=== PATIENT | male | born 1985 | race Caucasian/White ===

== ENCOUNTER 2023-10-02 10:47 | Emergency (ER) | payer OTHER, SELFPAY ==
--- NOTE | ~2023-10-02 | CT_ITS ---
EXAMINATION: CT abdomen pelvis w con DATE: 10/02/2023 12:24 INDICATION: Urinary retention, rectal pain, hemorrhoids. History of hemorrhoidectomy 2 years ago. TECHNIQUE: Computed tomography (CT) of the abdomen and pelvis was performed with 100 CC Omnipaque 350 intravenous contrast. Automated exposure control and iterative reconstruction technique were employe d. Exam dose: 900.30 mGy-cm total exam DLP. COMPARISON: None. FINDINGS: The lung bases are clear. Normal heart size. No pericardial or pleural effusion. The liver, gallbladder, bile ducts, pancreas, pancreatic duct, spleen, and adrenal glands and kidneys are unremarkable. No urinary tract calculus or hydroureteronephrosis. The urinary bladder, prostate gland and seminal vesicles are unremarkable. No bowel obstruction, bowel wall thickening, pneumatosis or intraperitoneal free air. Normal appendix . Normal caliber of the abdominal aorta. No intraperitoneal or retroperitoneal or pelvic mass lesion or adenopathy or ascites. L4 limbus vertebra. Schmorl's nodes and mild anterior wedging of L1, L2 and L3. Small Schmorl's node of L5. No suspicious osteolytic or osteoblastic lesions. IMPRESSION: No significant abnormality of the abdomen or pelvis is noted Reviewed, dictated and finalized at [facility]. Reviewed, dictated and finalized at [facility]. [employer]
[2023-10-02 10:54] VITALS: BP 140/85; PULSE 92; RESP 18; TEMP 36.3; O2SAT 100
[2023-10-02 11:18] VITALS: RESP 18; O2SAT 99
--- NOTE | 2023-10-02 11:40 | ED.GENADULT ---
[facility] - General Adult General Chief complaint: Unspecified Stated complaint: hemorrhoid pain Time Seen by Provider: 10/02/23 10:55 Source: patient Mode of arrival: ambulatory Limitations: no limitations History of Present Illness [facility] narrative: This is a 38-year-old male who presents to the ED with chief complaint of rectal pain ongoing for several months and worse the last couple of days. Reports that he had recent GI bug and was having diarrhea. He seems to think this has exacerbated his pain with known hemorrhoids. He feels that the pain is more internal. States that Sitz baths helped a lot but any time he is not using Sitz bath he is in severe pain. He has tried rectal lidocaine and hydrocortisone with no relief. States he has to be seen by [facility] this [facility] for a repeat B[facility] injection. Patient reports that with this increasing pain he has not had a bowel movement in 2 days. Reports that he has not been able to urinate and has been self cathing withhold catheter at home to urinate. Denies fevers, chills, nausea, vomiting, hematuria, dysuria. Related Data Allergies Allergy/AdvReac Type Severity Reaction Status Date / Time No Known Allergies Allergy Verified 10/02/23 11:24 Review of Systems Review of Systems: All systems as dictated in [facility] Family History Family History (Updated 03/18/17 @ 14:28 by DOCTOR UNKNOWN) Grandparent Diabetes mellitus Sibling Family history of gastrointestinal disorder Social History Social History Smoking status: Heavy tobacco smoker Alcohol intake: current Exam Narrative: GENERAL: Well-appearing, well-nourished, and in no acute distress. HEAD: Normocephalic, atraumatic. EYES: PERRLA and EOMI. ENT: Nares clear, no rhinorrhea or epistaxis. Mucous membranes moist. Oropharynx without tonsillar hypertrophy exudate or other lesions. NECK: Supple. No adenopathy or masses. CHEST: No respiratory distress. Clear to auscultation. No wheezes rales or rhonchi HEART: Regular rate and rhythm. No murmur heard. Normal peripheral pulses. ABDOMEN: Soft, nontender, nondistended, normal active bowel sounds. MSK: Normal range of motion. No edema. SKIN: Warm, dry, no rash. NEURO: Alert and oriented x3. No focal deficits. PSYCH: Normal mood and affect. 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 No thrombosis. Unable to visualize any obvious anal fissure Course Vital Signs Vital signs: Vital Signs Temperature 97.3 F L 10/02/23 10:54 Pulse Rate 92 10/02/23 10:54 Respiratory Rate 18 10/02/23 10:54 Blood Pressure 140/85 10/02/23 10:54 Pulse Oximetry 100 10/02/23 10:54 Temperature 97.8 F 10/02/23 14:33 Pulse Rate 89 10/02/23 14:33 Respiratory Rate 17 10/02/23 14:33 Blood Pressure 137/77 10/02/23 14:33 Pulse Oximetry 100 10/02/23 14:33 Medical Decision Making MDM Narrative Medical decision making narrative: This is a 38-year-old male who presents to the ED with chief complaint of hemorrhoid pain for the past several days. Recent GI illness that seemed to have worsened his chronic hemorrhoids. Vitals are normal. Exam is overall benign. He is resting comfortably. There is some vascular congestion and external hemorrhoid noted on exam but no evidence of thrombosed hemorrhoid. He has secondary complaints of constipation and urinary retention due to pain. Lab work shows mildly elevated white count 0.4 and overall CMP. Urinalysis was gained via straight cath as patient was not able to give a urine sample. UA shows CT abdomen pelvis with IV contrast shows no significant abnormality of the abdomen or pelvis. Examined the patient with attending, Dr. Jose. Shared decision making with the patient to place Jones catheter today and have him follow up with surgery. Patient will be given prescription for Anusol. Lengthy discussion regardin
[2023-10-02] MEDS: ONDANSETRON INJ 4 MG/2 ML VIAL IV PUSH (11:43)
[2023-10-02] MEDS: HYDROmorphone HCL INJ (*CRX) 1 MG/ML SYR 0.5 MG IV PUSH (11:43)
[2023-10-02] MEDS: SODIUM CHLORIDE 0.9% IV 1,000 ML 999 ML IV CONT (11:46)
[2023-10-02 11:53] LABS: Basophils Percent Auto 0.2 % (0.2-1.2); Eosinophils Percent Auto 0.4 % (0-4.4); Hematocrit 45.1 % (42.0-52.0); Hemoglobin 15.3 g/dL (14.0-18.0); Immature Granulocyte Absolute 0.03 K/mm3 (0.00-0.031); Immature Granulocyte Percent A 0.3 % (0-0.5); Lymphocytes Absolute Auto 1.31 K/mm3 (0.9-3.2); Lymphocytes Percent Auto 11.5 % (18.3-44.2); Mean Corpuscular HGB Conc 33.9 g/dl (32-36); Mean Corpuscular Hemoglobin 32.5 pg (26-34); Mean Corpuscular Volume 95.8 fl (80-100); Mean Platelet Volume 10.7 fl (7.4-10.4); Monocytes Percent Auto 8.7 % (2.6-8.5); Neutrophils Percent Auto 78.9 % (45.5-73.1); Platelet Count Result 179 k/mm3 (150-375); Red Blood Count 4.71 M/mm3 (4.6-6.20); Red Cell Distribution Width 12.4 % (11.5-14.5); White Blood Count 11.4 K/mm3 (4.5-10.0)
[2023-10-02 12:07] LABS: Alanine Aminotransferase 18 U/L (6-50); Alkaline Phosphatase 80 U/L (38-126); Anion Gap 2 mmol/L (8-16); Aspartate Amino Transferase 16 U/L (17-59); Bilirubin,Total 0.9 mg/dL (0.2-1.3); Blood Urea Nitrogen 18 mg/dL (9-20); Carbon Dioxide 28 mmol/L (22-30); Chloride 106 mmol/L (98-107); Estimated CRCL calculation 125 ml/min; Estimated Glomerular Filt Rate > 60; Glucose 96 mg/dL (65-110); Potassium 4.1 mmol/L (3.4-5.0); Sodium 136 mmol/L (137-145)
--- NOTE | 2023-10-02 12:15 | PC.NURSE ---
pt to CT scan at this time.
[2023-10-02 13:05] LABS: Appearance Urine Clear (Clear); Bacteria Urine None Seen /hpf; Bilirubin Urine Negative (Negative); Blood Urine 1+ (Negative); Color Urine Yellow (Yellow); Glucose Urine UA Trace mg/dL (Negative); Ketones Urine Trace mg/dL (Negative); Leukocyte Esterase Ur Trace LEU/UL (Negative); Nitrate Urine Negative (Negative); Non Pathogenic Casts 0-2; Protein Urine Trace mg/dL (Negative); Squamous Epithelial Cell Urine None seen /hpf (Few)
[2023-10-02 13:22] LABS: Specific Grav Ur 1.071 (1.001-1.035)
[2023-10-02 13:24] LABS: Add Urine Microscopic? YES
--- NOTE | 2023-10-02 13:56 | PC.NURSE ---
after placing linares catheter pt reports excruciating pain and is requesting or catheter to be removed. catheter is draining urine appropriately and balloon was inflated without difficulty. ZIA Drummond made aware.
--- NOTE | 2023-10-02 14:00 | PC.NURSE ---
Family approached nurses station and states pt is in a lot of pain and is requesting for linares catheter to be removed. balloon deflated and catheter removed without difficulty.
--- NOTE | 2023-10-02 14:05 | PC.NURSE ---
ZIA Drummond in room speaking with pt and family at this time.
[2023-10-02] MEDS: KETOROLAC 30 MG/ML VIAL (*BKC) IV PUSH (14:20)
[2023-10-02 14:33] VITALS: BP 137/77; PULSE 89; RESP 17; TEMP 36.6; O2SAT 100
--- NOTE | 2023-10-02 14:39 | PC.NURSE ---
pt was educated on importance of having the Jones Catheter placed, but pt is still refusing. pt advised to return if he changes his mind or has any worsening symptoms. pt to follow up w/ his pcp/general surgery. pt verbalized understanding.gave pt physician directory for doctors to follow up with.
== END 2023-10-02 14:42 | disposition home or self-care (01) ==
PROVIDERS: Emergency Provider Physician Assistant
DX: K62.89 Other specified diseases of anus and rectum (principal); F17.200 Nicotine dependence, unspecified, uncomplicated
CPT/HCPCS: 36415; 51702; 74177; 80053; 81001; 85025; 87086; 96361; 96374; 96375; 99284; J1170; J1885; J2405; J7030; Q9967

== ENCOUNTER 2025-01-27 14:10 | Emergency (ER) | payer OTHER, SELFPAY ==
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
--- NOTE | ~2025-01-27 | XR_ITS ---
EXAM: XR shoulder LT min 2V DATE: 01/27/2025 15:58 HISTORY: pain . COMPARISON: None available. FINDINGS: Normal mineralization. No fracture or dislocation. No lytic or blastic lesion. Degenerativ e change at the AC joint. No erosion or periosteal change. Beaver-shaped hypodensity projecting sup erior to the medial clavicle. IMPRESSION: No acute osseous finding in the left shoulder. Beaver-shaped hyperdensity noted mediall y, of doubtful clinical significance, may represent external artifact. Reviewed, dictated and finalized at location K. IMPRESSION: No acute osseous finding in the left shoulder. Beaver-shaped hype rdensity noted medially, of doubtful clinical significance, may represent exter nal artifact.
--- NOTE | ~2025-01-27 | XR_ITS ---
EXAM: XR hand LT min 3V DATE: 01/27/2025 15:57 HISTORY: pain . COMPARISON: 01/27/2025 x-ray wrist. FINDINGS: Normal mineralization. No fracture or dislocation. No lytic or blastic lesion. Joint space s are maintained. No erosion or periosteal change. Soft tissues within normal limits. IMPRESSION: No acute osseous finding in the left hand. Reviewed, dictated and finalized at location K.
--- OUTSIDE RECORDS SUMMARY | 2025-01-27 14:12 | XMS_ITS | Clinical Summary ---
Author Organization [facility] [employer] Address [address] [place] [address] Care Team Providers Care Youth Support Worker Name Role Phone Unavailable Primary Care Provider Unavailabl e Source Comments [facility],non-owned Affiliates and Associated Physician Practices is amultiple site organization consisting of ambulatory clinics and hospital sitesin [place], [place], [place]. This disclosure is being madepursuant to the Care Everywhere program and may not contain all information available regarding this patient. Last updated 18.[facility] [employer] Allergies No known active allergies Medications * Be aware that medications may not be up to date on this document. Alwaysverify current medications with the patient. ibuprofen (MOTRIN) 200 MG tablet Take 200 mg by mouth every 6 hours as needed for Pain. 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 Gender Identity Not on file Sexual Orientation Not on file Last Filed Vital Signs Vital Sign Reading Time Taken Comments Blood Pressure 140/86 11/21/2009 11:45 AM CDT Pulse 59 11/21/2009 11:45 AM CDT Temperature 36.9 C (98.4 F) 11/21/2009 11:45 AM CDT Respiratory Rate 18 11/21/2009 11:45 AM CDT Oxygen Saturation 100% 11/21/2009 11:45 AM CDT Inhaled Oxygen Concentration - - Weight 96.6 kg (213 lb) 11/21/2009 6:40 AM CDT Height 188 cm (6' 2) 11/21/2009 6:40 AM CDT Body Mass Index 27.35 11/21/2009 6:40 AM CDT Plan of Treatment Health Maintenance Due Date Last Done Comments LIPID TESTING 1983 HIV SCREENING 1998 HEPATITIS C SCREENING 08/27/2001 DTAP/TDAP/TD VACCINES (1 - Tdap) 2002 HEPATITIS B VACCINE (1 of 3 - 19+ 3-dose series) 2002 COVID-19 VACCINE ( - 2023-2 5 season) 2024 DEPRESSION SCREENING 07/26/2024 INFLUENZA VACCINE (Season Ended) 2025 ZOSTER VACCINE (1 of 2) 2033 HIB VACCINE Aged Out No longer eligi ble based on patient's age to complete this topic HPV VACCINE Aged Out No longer eligi ble based on patient's age to complete this topic MENINGOCOCCAL (Group B) VACC INE SHARED DECISION-MAKING Aged Out No longer eligibl e based on patient's age to complete this topic MENINGOCOCCAL GROUPS A/C/Y/W VACCINE Aged Out No longer eligible b ased on patient's age to complete this topic PNEUMOCOCCAL VACCINE Aged Out No long er eligible based on patient's age to complete this topic
[2025-01-27 14:16] VITALS: BP 160/76; PULSE 74; RESP 18; TEMP 36.5; O2SAT 99
--- OUTSIDE RECORDS SUMMARY | 2025-01-27 15:26 | XMS_ITS | Clinical Summary ---
Author Organization [facility] [employer] Address [address] [place] [address] Care Team Providers Care Environmental Emergencies Assistant Name Role Phone Unavailable Primary Care Provider Unavailabl e Source Comments [facility],non-owned Affiliates and Associated Physician Practices is amultiple site organization consisting of ambulatory clinics and hospital sitesin [place], [place], [place] and [place]. This disclosure is being madepursuant to the Care Everywhere program and may not contain all information available regarding this patient. 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
--- OUTSIDE RECORDS SUMMARY | 2025-01-27 15:27 | XMS_ITS | Encounter Summary ---
Author Name [facility] [facility] [place] Address [address], [place] [address] Care Team Providers Care Weed Thinner Name Role Phone SHARMIN ROSEN Primary Care Provider Unavailab le Insurance Providers: All historical and current Section Date Range: From patient's date of to the date document was created. This section includes the names of all active insurance providers for the patient. Insurance Provider Type of Coverage Plan Name Start of Policy Coverage End of Policy Coverage Group Number Member ID Insurance Provider's Telephone Number Policy Fields's Name Patient's Relationship to Policy Fields [employer] PRESCRIPT ION UHEAL TH Dec 25, 2019 [facility] [id number] RA ANGELA ESQUIVEL PATIENT [facility] HEALTH MENTAL HEALTH REPUB LIC SERVI KATI Aug 26, 2019 [id number] [phone] RA ANGELA ESQUIVEL PATIENT [facility] PREFERRED PROVIDER ORGANIZAT ION (PPO) REPUB LIC [employer] Aug 26, 2019 [id number] RA ANGELA ESQUIVEL PATIENT Selected Encounter This section includes the information on record at [place] for the Encounter. Date/Time Encounter Type Encounter Description Reason Provider Source Jul 31, 2024 03:00 PM OFFICE O/P EST MOD 30 MIN PRIMARY CARE/MEDICINE ICD-10-CM G62.9 Polyneuropathy, unspecified JESSIKA,ELKE E IHE Encounter Template Text not used by [place] Assessments - Encounter Diagnoses This section includes the primary and secondary diagnoses documented for the Encounter. Date/Time Primary/Secondary Diagnosis Diagnosis Name Provider Source Jul 31, 2024 04:01 PM PRIMARY Polyneuropathy, unspecified DEPAULO,SHARMIN [facility] Jul 31, 2024 04:01 PM SECONDARY Carpal tunnel syndrome, bilateral upper limbs [facility]ULO,[facility] Jul 31, 2024 04:01 PM SECONDARY Cellulitis of left external ear DEPAULO,[facility] Jul 31, 2024 04:01 PM SECONDARY Depression, unspecified JOAQUINLO,SHARMIN [facility] Jul 31, 2024 04:01 PM SECONDARY Lateral epicondylitis, left elbow DEPAULO,[facility] Jul 31, 2024 04:01 PM SECONDARY Post-traumatic stress disorder, unspecified JESSIKA,[facility] Plan of Treatment: Future Appointments (+ 6 months) and Future Tests (+/- 45 days) The Plan of Treatment section includes future care activities for the patient from [facility] [place] [facility] This section includes future appointments and future orders which are active, pending or scheduled. Future Appointments This section includes appointments that were scheduled to occur 6 months from the date of the Encounter, up to a maximum of 20 appointments. The data comes from all [place] treatment facilities. Appointment Date/Time Appointment Type Appointme nt Facility Name Aug 22, 2024 08:15 AM AMBULATORY - MEDICINE [facility] Aug 23, 2024 01:30 PM AMBULATORY - SURGERY [facility] Aug 31, 2024 02:00 PM AMBULATORY - MEDICINE [facility] Sep 26, 2024 03:00 PM AMBULATORY - MEDICINE [facility] Oct 09, 2024 09:00 AM AMBULATORY - MEDICINE [facility] Oct 16, 2024 03:30 PM AMBULATORY - NONE [facility] Nov 15, 2024 02:00 PM AMBULATORY - SURGERY [facility] Jan 09, 2025 08:30 AM AMBULATORY - NONE [facility] Social History: Smoking Status (Most current) and Tobacco Use (All prior to encounter date) This section includes the most current, and the historical, smoking and tobacco- related health factors from the [place] facility where the Encounter took place. Current Smoking Status This section includes the most current smoking, or tobacco-related health factor, from the [place] facility where the Encounter took place. Date/Time Current Smoking Status Comment Rosie ity Jul 31, 2024 03:00 PM VA-TOBACCO USE FOR TIANA CIGARETTES [facility] Tobacco Use History This section includes a history of the smoking, or tobacco-related health factors, that were collected on or before the date of the Encounter. The data comes from the [place] facility where the Encounter took place. Date/Time Smoking Status/Tobacco Use Comment F acility Jul 31, 2024 03:00 PM VA-TOBACCO USE ADVICE [facility] Jul 31, 2024 03:00 PM VA-TOBACCO USE COSMETICS COUNTER MANAGER NO [facility] Jul 31, 2024 03:00 PM VA-TOBACCO USE EVERY DAY ENDS [facility] Jul 31, 2024 03:00 PM VA-TOBACCO USE MARIANNE RY DAY OTHER TYPE [facility] Jul 31, 2024 03:00 PM VA-TOBACCO USE FOR TIANA CIGARETTES [facility] Jul 31, 2024 03:00 PM VA-TOBACCO USE MED NO [facility] Apr 14, 2018 08:24 AM VA-TOBACCO DOESNT USE WI 30 MIN WAKEUP [facility] Apr 14, 2018 08:24 AM VA-TOBACCO USE > 1 5 LESS THAN 30 YEARS [facility] Apr 14, 2018 08:24 AM VA-TOBACCO USE ADVICE [facility] Apr 14, 2018 08:24 AM VA-TOBACCO USE COSMETICS COUNTER MANAGER NO [facility] Apr 14, 2018 08:24 AM VA-TOBACCO USE MED NO [facility] Apr 14, 2018 08:24 AM VA-TOBACCO USER EVERY DAY [facility] Pathology Reports: +/- 30 days of the encounter Pathology Reports For cases when an order for pathology services may have been completed prior to the date of the Encounter, the report list includes the Pathology Reports that were completed up to 30 days before dateof the Encounter. For cases when an order for pathology services may have been completed after the date of the Encounter, the report list also includes the Pathology Reports that were completed up to30 days after date of the Encounter. The data comes from all [place] treatment facilities. Date/Time Pathology Report Provider Source Aug 25, 2024 10:48 AM LR SURGICAL PATHOL OGY REPORT: LOCAL TITLE: LR SURGICAL PATHOLOGY REPORT STANDARD TITLE: PATHOLOGY PROCEDURE NOTE DATE OF NOTE: AUG 25, 2024@10:48:45 ENTRY DATE: AUG 25, 2024@10:48:45 AUTHOR: DANGELO CODY EXP COSIGNER: URGENCY: STATUS: COMPLETED $APHDR - - - - - - - - - - - - - - - - - - - - - - - - - - - - - - - - - - - - - - - - MEDICAL RECORD SURGICAL PATHOLOGY - - - - - - - - - - - - - - - - - - - - - - - - - - - - - - - - - - - - - - - - PATHOLOGY REPORT Accession No. SP [id number] - - - - - - - - - - - - - - - - - - - - - - - - - - - - - - - - - - - - - - - - $TEXT Submitted by: MANNIE FIELDS Date obtained: Aug 22, 2024 - - - - - - - - - - - - - - - - - - - - - - - - - - - - - - - - - - - - - - - - Specimen (Received Aug 22, 2024 10:45): A. distal esophagus biopsies B. mid esophagus biopsies C. rectal biopsies D. terminal ileum biopsies - - - - - - - - - - - - - - - - - - - - - - - - - - - - - - - - - - - - - - - - BRIEF CLINICAL HISTORY: 38-year-old male with a history of perianal abscess after hemorrhoidectomy rule out IBD and dysphagia eval for EoE. - - - - - - - - - - - - - - - - - - - - - - - - - - - - - - - - - - - - - - - - PREOPERATIVE DIAGNOSIS: Same as above - - - - - - - - - - - - - - - - - - - - - - - - - - - - - - - - - - - - - - - - OPERATIVE FINDINGS: Esophageal mucosal findings suggestive of EoE, rectal inflammation - - - - - - - - - - - - - - - - - - - - - - - - - - - - - - - - - - - - - - - - POSTOPERATIVE DIAGNOSIS: Same as above Surgeon/physician: ANTONELLA FLETCHER MD =-=-=-=-=-=-=-=-=-=-=-=-=-=-=-= -=-=-=-=-=-=-=-=-=-=-=-=-=-=-=- =-=-=-=-=-=-=-=-= - - - - - - - - - - - - - - - - - - - - - - - - - - - - - - - - - - - - - - - - PATHOLOGY REPORT Accession No. SP [id number] - - - - - - - - - - - - - - - - - - - - - - - - - - - - - - - - - - - - - - - - GROSS DESCRIPTION: Sangeetha Naidu, 08/22/24 The specimen is received in formalin in four containers, each labeled with the patient's full name and SSN. A. Labeled as Distal Esophagus Biopsies are multiple webster tissue fragments measuring 0.5 x 0.5 x 0.1cm in aggregate, which are submitted in toto in A1. B. Labeled as Mid Esophagus Biopsies are multiple webster tissue fragments measuring 0.4 x 0.4 x 0.1cm in aggregate, which are submitted in toto in B1. C. Labeled as Rectal Biopsies are three red-webster tissue fragments measuring from 0.3cm to 0.4cm, in greatest dimension and 0.6 x 0.5 x 0.2cm in aggregate, which are submitted in toto in C1. D. Labeled as Terminal Ileum Biopsies are three red-webster tissue fragments measuring from 0.5cm to 0.6cm, in greatest dimension and 0.7 x 0.6 x 0.2cm in aggregate, which are submitted in toto in D1. MICROSCOPIC EXAM: Comment: Sections from the distal and mid esophageal biopsies show squamous epithelium with patchy increase of intraepithelial lymphocytes and eosinophils (15/HPF at hotspots). Features of basal cell hyperplasia, elongation of vascular papillae and spongiosis are also present. Detached squamous cells and keratin debris with fungal organisms highlighted by GMS stain on the mid esophageal biopsy and bacterial colonies are also present. These findings are etiologically nonspecific and can be seen in the setting of GERD and/or EOE, among others. Correlation with the clinical information is necessary. Sections from the rectal biopsy show colonic mucosa with significant lymphoid aggregates and moderately increased lamina propria chronic inflammation. There is no cryptitis or crypt abscess seen. Mucosal architecture is relatively preserved. Dysplasia is not seen. Sections from terminal ileum show small intestinal mucosa with significant lymphoid aggregates and hyperplasia. Mucosal architecture is relatively preserved. Dysplasia is not seen. DIAGNOSIS: ESOPHAGUS, DISTAL, BIOPSY (A): -- SQUAMOUS EPITHELIUM WITH INCREASED INTRAEPITHELIAL LYMPHOCYTES AND EOSINOPHILS (15/HPF) -- SEE COMMENT ESOPHAGUS, MID, BIOPSY (B): -- SQUAMOUS EPITHELIUM WITH INCREASED INTRAEPITHELIAL LYMPHOCYTES AND EOSINOPHILS (15/HPF) -- FUNGAL ORGANISMS PRESENT -- SEE COMMENT LARGE INTESTINE, RECTUM, BIOPSY (C): -- COLONIC MUCOSA WITH INCREASED LAMINA PROPRIA CHRONIC INFLAMMATION AND LYMPHOID AGGREGATES (SEE COMMENT) SMALL INTESTINE, TERMINAL ILEUM, BIOPSY (D): -- SMALL INTESTINAL MUCOSA WITH SIGNIFICANT LYMPHOID AGGREGATES AND HYPERPLASIA (SEE COMMENT) /es/ DANGELO CODY MD, PhD STAFF PATHOLOGIST Signed Aug 25, 2024@10:48 Performing Laboratory: Surgical Pathology Report Performed By: [address]# [id number] [address] [place] [phone] $FTR - - - - - - - - - - - - - - - - - - - - - - - - - - - - - - - - - - - - - - - - (End of report) DANGELO CODY MD ph Date Aug 25, 2024 - - - - - - - - - - - - - - - - - - - - - - - - - - - - - - - - - - - - - - - - MARY ESQUIVEL STANDARD FORM 515 ID:[id number] SEX:M :1985 AGE: 38 LOC:[facility]-GI/ENDO LAB ANESTHESIA2 PCP: Sharmin Rosen /elvis/ DANGELO CODY MD, PhD STAFF PATHOLOGIST Signed: 08/25/2024 10:[address] [facility] Encounter Notes: All associated encounter notes This section contains the clinical notes associated to the Encounter. Date/Time Encounter Note(s) Provider Source Jul 31, 2024 03:04 PM TELEHEALTH NOTE: LOCAL TITLE: PRIMARY CARE VIDEO CONNECT [facility] STANDARD TITLE: TELEHEALTH NOTE DATE OF NOTE: JUL 31, 2024@15:04 ENTRY DATE: JUL 31, 2024@15:04:38 AUTHOR: SHARMIN ROSEN EXP COSIGNER: URGENCY: STATUS: COMPLETED ESTABLISHED PATIENT VIDEO: REASON FOR VISIT/CHIEF COMPLAINT: 38yo male with f/u visit, VVC done in lieu of F2f due to weather. HPI: Patient reports issues with numbness of both arms, mainly when he is sleeping. He notes numbness from the shoulders down to his hands and reports all fingers seem to be affected. He has had a hx of bilateral CTS and right sided ulnar neuropathy. --he is s/p right CT and ulnar nerve decompression in 2019 and for awhile he had no issues. Then started having issues again w/in the past year. --he has been using wrist braces but they are no longer working well for him and seem to make it worse. --he has noticed issues with activity as well, with hands going numb and feeling like he will drop things. --both sides affected equally at this time. --has previously used gabapentin but does feel that it was helping much. Also reports pain in the lateral left elbow, worse in the last couple months. Reports pain and swelling around the lateral epicondyle. Having trouble lifting things, extending the arm, using tools, etc. --he is RHD but uses both arms for work. --no recent OT. He also has a hx of depression and PTSD, currently on sertraline 50mg daily. He reports feeling like he is having more issues with depression and anxiety. reports he is seeming more irritable as well. He does note issues with anhedonia. --previously on buprupion but that seemed to make things worse. WHAT IS YOUR GOAL FOR TODAY? 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 MEDICATIONS: Active and Recently Outpatient Medications (excluding Supplies): Active Outpatient Medications Status 1) MAGNESIUM CITRATE LIQUID TAKE ONE-HALF BOTTLE BY MOUTH ONCE ACTIVE A DAY NEEDED IF NO BOWEL MOVEMENTS Indication: FOR BOWEL EMPTYING 2) PSYLLIUM ORAL PWD MIX AND DRINK 1 TABLESPOONFUL BY MOUTH ACTIVE ONCE A DAY MIX IN GLASS OF WATER/JUICE. FLAVOR SUBSTITUTIONS MAY/WILL OCCUR AND SPECIFIC VARIETIES WILL NOT BE PROVIDED. Indication: FOR FIBER SUPPLEMENTATION 3) SERTRALINE HCL 50MG TAB TAKE ONE TABLET BY MOUTH EVERY ACTIVE (S) MORNING Indication: FOR DEPRESSION Active Non-VA Medications Status 1) Non-VA CHOLECALCIF 50MCG (D3-2,000UNIT) TAB 2000UNIT BY ACTIVE MOUTH ONCE A DAY 2) Non-VA FISH OIL 1000MG (500MG DHA/EPA) CAP 1000MG BY MOUTH ACTIVE ONCE A DAY Indication: UNKNOWN 3) Non-VA TESTOSTERONE CYP 200MG/ML 1ML IN OIL 100MG/0.5ML ACTIVE DEEP INTRAMUSCULARLY TWO TIMES PER WEEK Indication: FOR LOW TESTOSTERONE 6 Total Medications MEDICATION RECONCILIATION: I have reviewed the patient's medication list with the patient and/or his/her care-route aide. Handwritten corrections, additions and/or deletions were made to the list. Corrected Outpatient Medication List was provided to the patient/caregiver. VITALS (most recent, as listed in the electronic record): Temperature: 98.4 F [36.9 C] (05/31/2024 13:58) BP: 120/77 (05/31/2024 13:58) Pulse: 77 (05/31/2024 13:58) Resp: 18 (05/31/2024 13:58) PulsOx: 98% (05/31/2024 13:58) Pain: 3 (05/31/2024 13:58) Weight: Measurement DT WEIGHT LB(KG)[BMI] 05/31/2024 13:58 240.2(108.95)[31*] 05/03/2024 14:01 234.8(106.50)[30*] 03/22/2024 14:32 234.4(106.32)[30*] General exam: pt awake alert and oriented. Speech and affect were normal Head: normocephalic. Eyes: nl eye movement Nose: wnl to limited exam Pt was not SOB, did not appear in acute pain or distress. Pscyh: nl affect. DATA REVIEW: HGA1C 5.6 % 09/29/2023 12:45 HGA1C 5.6 % 08/14/2022 14:22 HGA1C 5.8 % 03/21/2020 11:08 Lipid Panel: TRIGLYCERIDE 435 H mg/dL 09/29/2023 12:45 CHOLESTEROL 223 H mg/dL 09/29/2023 12:45 HDL(New) 32 L mg/dL 09/29/2023 12:45 DIRECT LDL 120 mg/dL 09/29/2023 12:45 CALCULATED LDL comment mg/dL 09/29/2023 12:45 CMP: SODIUM 140 mEq/L 01/07/2024 20:00 POTASSIUM 3.5 mEq/L 01/07/2024 20:00 CHLORIDE 104 mEq/L 01/07/2024 20:00 UREA NITROGEN 10.1 mg/dL 01/07/2024 20:00 CREATININE 0.89 mg/dL 01/07/2024 20:00 CALCIUM 9.3 mg/dL 01/07/2024 20:00 PROTEIN 6.8 g/dL 01/04/2024 23:50 ALBUMIN 4.0 g/dL 01/04/2024 23:50 ALKALINE PHOSPHATASE 67 U/L 01/04/2024 23:50 ALT/SGPT 27 U/L 01/04/2024 23:50 AST/SGOT 14 U/L 01/04/2024 23:50 TOTAL BILIRUBIN 0.6 mg/dL 01/04/2024 23:50 CARBON DIOXIDE 26 mEq/L 01/07/2024 20:00 GLUCOSE 120 H mg/dL 01/07/2024 20:00 EGFR (CKD-EPI 2020) 111.1 01/07/2024 20:00 CBC: WBC 7.7 10*3/uL 01/07/2024 20:00 RBC 4.31 10*6/uL 01/07/2024 20:00 HGB 13.7 g/dL 01/07/2024 20:00 HCT 40.5 % 01/07/2024 20:00 MCV 94.0 fL 01/07/2024 20:00 MCH 31.8 pg 01/07/2024 20:00 MCHC 33.8 g/dL 01/07/2024 20:00 RDW 13.2 % 01/07/2024 20:00 PLT 272 10*3/uL 01/07/2024 20:00 MPV 10.1 fL 01/07/2024 20:00 NEUTROPHILS, AUTO % 67 % 01/07/2024 20:00 LYMPHOCYTES, AUTO % 25 % 01/07/2024 20:00 MONOCYTES, AUTO % 7 % 01/07/2024 20:00 EOSINOPHILS, AUTO % 1 % 01/07/2024 20:00 BASOPHILS, AUTO % 0 % 01/07/2024 20:00 NEUTROPHILS, ABSOLUTE 5.15 10*3/uL 01/07/2024 20:00 LYMPHOCYTES, ABSOLUTE 1.89 10*3/uL 01/07/2024 20:00 MONOCYTES, ABSOLUTE 0.54 10*3/uL 01/07/2024 20:00 EOSINOPHILS, ABSOLUTE 0.05 10*3/uL 01/07/2024 20:00 BASOPHILS, ABSOLUTE 0.02 10*3/uL 01/07/2024 20:00 NEUTROPHILS 81.0 % 10/08/2023 20:00 LYMPHOCYTES 5.2 % 10/08/2023 20:00 MONOCYTES 11.2 % 10/08/2023 20:00 EOSINOPHILS 1.7 % 10/08/2023 20:00 METAMYELOCYTES 0.9 % 10/08/2023 20:00 POIKILOCYTOSIS 1+ 10/08/2023 20:00 No PSA (LAST 10 5Y) EO data found TSH: TSH 1.488 uIU/mL 09/29/2023 12:45 VITAMIN D, 25-HYDROXY 41.0 ng/mL 09/29/2023 12:45 VITAMIN D, 25-HYDROXY 38.8 ng/mL 08/14/2022 14:23 INR: No INR EO data found UA: URINE COLOR Colorless 12/12/2023 09:36 APPEARANCE Clear 12/12/2023 09:36 U.PH 6.0 12/12/2023 09:36 U.BILIRUBIN Negative mg/dL 12/12/2023 09:36 U.NITRITE Negative mg/dL 12/12/2023 09:36 URINE RBC/HPF 2 /HPF 12/12/2023 09:36 URINE WBC/HPF 1 /HPF 12/12/2023 09:36 SQUAMOUS EPITH. <1 /HPF 12/12/2023 09:36 MUCUS RARE /LPF 12/12/2023 09:36 CA OXYLATE CRYSTALS OCC /HPF 10/16/2023 07:30 IM - IMMUNIZATIONS ADMINISTERED Immunization Series Date Facility Reaction Info PNEUMOCOCCAL POLYSACCHARIDE PPV23 03/18/2018 [facility] TDAP 1 03/17/2017 [facility] IIS CONTRAINDICATED No data available REFUSED ======= Immunization Date Facility Info INFLUENZA, UNSPECIFIED FORMULATI* 07/29/2023 [facility] <I> INFLUENZA, UNSPECIFIED FORMULATI* 07/27/2023 [facility] <I> INFLUENZA, UNSPECIFIED FORMULATI* 07/22/2023 No Site <I> INFLUENZA, UNSPECIFIED FORMULATI* 07/22/2022 No Site <I> PNEUMOCOCCAL CONJUGATE, UNSPECIF* 07/27/2023 [facility] <I> SARS-COV-2 (COVID-19) VACCINE,UN* 07/22/2022 No Site <I> TDAP 07/27/2023 [facility] <I> ASSESSMENT/PLAN: 1) Bilateral arm numbness: with hx of bilateral CTS and right sided ulnar neuropathy. --s/p decompression of right ulnar and CT neuropathies. --now affecting arm and entired hands bilaterally, often during sleep but also notes intermittent issues when using tools. --Will get repeat EMG/NCS for further evaluation and consideration of returning to [facility] for further treatment. --Consult to OT. 2) Left elbow pain: sx consistent with lateral epicondylitis. --consult to OT. 3) Depression: reports sx have been worse of late, noting more irritability as well as anhedonia. --currently on sertraline 50mg w/o issue, will increase to 100mg daily and f/u by phone in 4 weeks to monitor treatment. --he declined [facility] referral at this time. 4) Perirectal abcess: seeing [facility], no new issues currently. RTC: 4 week phone visit, 6 month clinic visit SUMMARY STATEMENT: Plan of care has been discussed with including expected therapeutic benefits and potential side effects of prescribed medication and treatments. verbalizes understanding and is in agreement with the plan of care. Patient was instructed to keep all scheduled appointments and contact black oxide operator for any additional problems. PREVENTION & SCREENING: ALCOHOL: Clinical Reminder not due now or within a month COLORECTAL CANCER: Clinical Reminder not due now or within a month BLOOD PRESSURE: Clinical Reminder not due now or within a month HEMOGLOBIN A1C: Clinical Reminder not due now or within a month V15-VA Video Connect/Video to Home: [facility] Video Connect (VVC)/Video to home template v1.5 Visit conducted by synchronous telehealth. [place] Location/emergency number confirmed. Environment surveyed and all participants identified. Virtual conference room locked. VVC/Video to home appointment information: The following items were reviewed: - The nature of telehealth, its benefits, and risks. - Confidentiality and its limits. - The importance of having a confidential location for the service. - The emergency plan. - The appointment should be treated like an in person appointment (no smoking or driving during session, showing up fully dressed, etc.) *The Virtual Medical Room was locked for this encounter. *A survey of the environment was conducted and it is appropriate to conduct a VVC appointment. *Confirmed [place]'s Non-VA location for this appointment: 's Home [address] [place], [place] [address] Address and phone number verified with . Address: Phone: does not have an emergency contact. *[place] was notified of right to decline Telehealth services and eligibility for other options. consented to be seen via VVC. EMERGENCY PLAN In the event of an emergency, the or family will call emergency services, if capable. The Teleprovider will remain in the virtual medical room until emergency response arrives and handoff to emergency services is complete. If is unable to make emergency call, the Teleprovider is to call the national E911 service at [phone] and ask to be connected to emergency services for the 's location. [place]'s Crisis Line: Dial 988 then press 1, or text [phone] Office of Connected Care Helpdesk ([facility]): [phone] or [phone] Verified Provider's location and contact information for this appointment: [facility] [address] [place] [address] x Sexual Orientation - CP,L,N,P,PH,PS,S,U: The patient thinks of their sexual orientation as: Straight or Heterosexual Tobacco Use Screening - AT,DE,L,M,N,P,PH,PS,RT,S,U: The patient is a former cigarette smoker. The patient uses other type(s) of tobacco every day. Other Tobacco Type(s) used: Electronic Nicotine Delivery System (ENDS) (e.g., e-cigarettes/vape pens) Patient was advised to stop smoking and/or using other tobacco products. Advised patient that a combination of behavioral counseling and FDA-approved cessation medications is the most effective way to ensure their success in stopping to smoke and/or using other tobacco products. The patient was not interested in additional information about behavioral counseling and other support strategies discussed. Informed patient that medications can help with cravings and withdrawal symptoms, and they greatly increase the chances of successfully stopping your tobacco use. The patient was not interested in a prescription for tobacco cessation medications. Depression Screening - V: Perform PHQ-2 A PHQ-2 screen was performed. The score was 4 which is a positive screen for depression. Over the past two weeks, how often have you been bothered by the following problems? 1. Little interest or pleasure in doing things More than half the days 2. Feeling down, depressed, or hopeless More than half the days Follow-Up Pos PTSD/Depression - M,P,PH,PS,R,S,T: I have reviewed the results of the Mental Health screens and have evaluated the patient. Based on the evaluation, the following disposition plan will be implemented: Patient to be managed in Primary Care VVC DIGITAL DIVIDE CAPABILITY REMINDER: Patient is interested in V[facility] Health Care appointments. VVC requirements have been communicated to the . The confirms understanding of those requirements and indicates the following VVC needs: [place] has completed previous VVC appointments and confirms they are STILL VVC CAPABLE. Future VVC appointments can be scheduled. 'S RIGHT TO DECLINE STATEMENT [place] understands they have the right to decline the use of [employer] at any time without adverse affects on their continued access to healthcare. /elvis/ SHARMIN ROSEN Staff Physician Signed: 07/31/2024 16:01 SHARMIN ROSEN [facility]
--- OUTSIDE RECORDS SUMMARY | 2025-01-27 15:27 | XMS_ITS | Encounter Summary ---
Author Name [facility] [facility] [place] Address [address], [place] [address] Care Team Providers Care Hand Straightener Name Role Phone MITCHEL ROSEN Primary Care Provider Unavailab le Insurance [...] PRESCRIPT ION UHEAL TH Dec 25, 2019 EAL [id number] [phone] RA ANGELA ESQUIVEL PATIENT [facility] MENTAL HEALTH REPUB LIC SERVI KATI Aug 26, 2019 [id number] [phone] RA ANGELA ESQUIVEL PATIENT [facility] PREFERRED PROVIDER ORGANIZAT ION (PPO) REPUB LIC [employer] Aug 26, 2019 [id number] [phone] RA ANGELA ESQUIVEL PATIENT Selected Encounter This section includes the information on record at [place] for the Encounter. Date/Time Encounter Type Encounter Description Reason Provider Source May 31, 2024 02:00 PM OFFICE O/P EST LOW 20 MIN GENERAL SURGERY ICD-10-CM H60.12 Cellulitis of left external ear COLBY LIANG Elliot Encounter Template Text not used by [place] Assessments - Encounter Diagnoses This section includes the primary and secondary diagnoses documented for the Encounter. Date/Time Primary/Secondary Diagnosis Diagnosis Name Provider Source May 31, 2024 03:13 PM PRIMARY Cellulitis of left external ear MAXWELL MILAN [facility] Plan of Treatment: Future Appointments (+ 6 months) and Future Tests (+/- 45 days) The Plan of Treatment section includes future care activities for the patient from all [place] treatmentfacilities. This section includes future appointments and future orders which are active, pending or scheduled. Future Appointments This section includes appointments that were scheduled to occur 6 months from the date of the Encounter, up to a maximum of 20 appointments. The data comes from all [place] treatment facilities. Appointment Date/Time Appointment Type Appointme nt Facility Name Jul 31, 2024 03:00 PM AMBULATORY - MEDICINE [facility] Aug 22, 2024 08:15 AM AMBULATORY - MEDICINE [facility] Aug 23, 2024 01:30 PM AMBULATORY - SURGERY [facility] Aug 31, 2024 02:00 PM AMBULATORY - MEDICINE [facility] Sep 26, 2024 03:00 PM AMBULATORY - MEDICINE [facility] Oct 09, 2024 09:00 AM AMBULATORY - MEDICINE [facility] Oct 16, 2024 03:30 PM AMBULATORY - NONE [facility] Nov 15, 2024 02:00 PM AMBULATORY - SURGERY [facility] Lab Results: +/- 30 days of the encounter This section includes the Chemistry and Hematology Lab Results on record with [place] for the patient. Radiology Reports and Pathology Reports are provided separately, in subsequent sections. Lab Results This section contains the Chemistry/Hematology Results that were resulted 30 days before or 30 daysafter the date of the Encounter. Date/Time Source Result Type Result - Unit Interpretation Reference Range Specimen Type Comment May 23, 2024 02:17 PM [facility] I-STAT, CREAT (ST[facility]-AK) BLOOD Specimen Type: BLOOD Comment: Test Performed by: [id number] Meter #: [id number] Ordering Provider: DEPAULO,MITCHEL Report Released Date/Time: May 23, 2024 02:43 PM Reporting Lab: [facility] [address] [facility] [id number] Performing Lab: [facility] [address] [facility] [facility] [id number] I-STAT, CREAT (STL-MA) 1.0 mg/dL 0.7-1.3 Vital Signs: All taken on the encounter date This section contains inpatient and outpatient Vital Signs collected on the date of the Encounter. Date/Time Temperature Pulse Blood Pressure Respiratory Rate SP02 Pain Height Weight Body Mass Index Source May 31, 2024 01:58 PM 98.4 77 120/77 18 98 3 74 240.2 31 [facility] Social History: Smoking Status (Most current) and Tobacco Use (All prior to encounter date) This section includes the most current, and the historical, smoking and tobacco- related health factors from the [place] facility where the Encounter took place. Current Smoking Status This section includes the most current smoking, or tobacco-related health factor, from the [place] facility where the Encounter took place. Date/Time Current Smoking Status Comment Facil ity Jul 22, 2023 10:43 AM VA-TOBACCO QUIT 1 TO < 5 YRS [facility] Tobacco Use History This section includes a history of the smoking, or tobacco-related health factors, that were collected on or before the date of the Encounter. The data comes from the [place] facility where the Encounter took place. 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 For cases when an order for radiology services may have been completed after the date of the Encounter, the report list also includes the Radiology Reports that were completed up to30 days after date of the Encounter. The data comes from all [place] treatment facilities. Date/Time Radiology Report Provider Source May 23, 2024 01:[address] PELVIS W/CONT: MARY ESQUIVEL [id number] -[id number] M Exm Date: MAY 23, 2024@13:44 Req Phys: TRAVIS BIRD Loc: [facility] Img Loc: [facility] Service: [address] [address] (Case [id number] COMPLETE) CT PELVIS W/CONT (CT Detailed) CPT:86165 Contrast Media : Non-ionic Iodinated Reason for Study: follow up anal fisutlas Clinical History: Responsible Attending: Dr. 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 CREATININE 0.89 mg/dL (01/07/24 20:00) Wt: 234.8 lb [106.50 kg] (05/03/2024 14:01) History of: Renal failure, chronic or acute renal disease: NO Report Status: Verified Date Reported: MAY 23, 2024 Date Verified: MAY 23, 2024 Casting Machine Operator E-Sig:/ES/Priya Guadalupe MD Report: CASE #: [id number] DATE:05/23/2024 4:08 PM CLINICAL HISTORY:follow up anal fisutlas COMPARISON: 12/12/2023, 12/08/2023, 11/03/2023 PROCEDURES: CT PELVIS W/CONT FINDINGS: Interval placement of left sigmoid colostomy which appears uncomplicated. No bowel obstruction or perforation. No free or loculated fluid in the visualized pelvis. Surgical implant in the left perirectal region again noted with decreased surrounding inflammation and no evidence for an abscess in the left periareolar anal/perirectal aspect of the ischial rectal fossa. Normal appendix. No inflammation the visualized bowel loops. The visualized portions of the ureters and bladder and prostate gland are unremarkable. Impression: Uncomplicated left ventral sigmoid colostomy. Surgical implant in the left perianal/perirectal space again noted. Decreased inflammation in this area without discrete fluid collection identified. Primary Interpreting Staff: Priya Guadalupe MD, Radiologist (Casting Machine Operator) /PRIYA BRIGHT [facility] Encounter Notes: All associated encounter notes This section contains the clinical notes associated to the Encounter. Date/Time Encounter Note(s) Provider Source May 31, 2024 02:04 PM SURGERY NOTE: LOCAL TITLE: GENERAL SURGERY NOTE ST STANDARD TITLE: SURGERY NOTE DATE OF NOTE: MAY 31, 2024@14:04 ENTRY DATE: MAY 31, 2024@14:04:42 AUTHOR: MAXWELL MILAN COSIGNER: COLBY LIANG URGENCY: STATUS: COMPLETED MAY 31, 2024 Colorectal Surgery Clinic Note Brief HPI: MARY ESQUIVEL is a 38-year-old MALE with PMHx JESUS on CPAP, migraines, tobacco use, internal/external hemorrhoids s/p L lateral and R posterolateral excision hemorrhoidectomy (Jul 2021), EUA w/ biopsy and fulguration of small ulcer (Jul 2022), EUA w/ botox injection and cauterization of granulation tissue (01/04/23), and perianal abscess drainage with setons placement in November 2023, s/p lap loop sigmoid colostomy 01/05/2024, for management of recurrent persistent non healing perianal abscesses, presenting for follow up. Patient last seen in clinic 05/03/24, at that time x1 seton removed. He was instructed to obtain repeat MRI but was unable to complete due to metal in chest so had CT scan completed. Today, fahad is overall doing well but continues to complain of draiange from his bottom. He is unsure if it is mucus from his anus for draiange from seton sites. He reports draiange ranges from yellow to white and is occasionally bloody. He states he is able to keep area clean by wearing pads and regularly wiping the area. Occasionally when he wipes he will pull on setons exacerbating pain and causing scant bleeding. He reports stoma output has been stable and he has no trouble changing his ostomy output. He denies fever, chills, nausea, vomiting, appetite change, or change in ostomy out. Patient reports he followed up with GI and is scheduled for EGD and colonoscopy in July. ROS: 14 point review of systems negative except as noted in HPI. Vitals: Temp: 98.4 F [36.9 C] (05/31/2024 13:58) Pulse Ox: Measurement DT POx (L/MIN)(%) 05/31/2024 13:58 98 05/03/2024 14:01 98 03/22/2024 14:32 98 01/20/2024 08:52 96 PULSE: 77 (05/31/2024 13:58) RESPIRATION: 18 (05/31/2024 13:58) BLOOD PRESSURE: 120/77 (05/31/2024 13:58) PHYSICAL EXAM General: in NAD HEENT: NC/AT, EOMI Neuro: no focal deficits CV: RRR Resp: unlabored respirations on room air Abdomen/Pelvis: soft, non-distended, non-tender. Port sites well healed, LUQ stoma appliance in place, no surrounding erythema Perianal: Three remaining setons with improved erythema and induration, scant yellowish discharge at insertion sites, tender to palpation. MSK: extremities x4 WWP, non-edematous Psych: appropriate mood and affect LABS: CHEM 7: SODIUM 140 mEq/L 01/07/2024 20:00 POTASSIUM 3.5 mEq/L 01/07/2024 20:00 CHLORIDE 104 mEq/L 01/07/2024 20:00 UREA NITROGEN 10.1 mg/dL 01/07/2024 20:00 CREATININE 0.89 mg/dL 01/07/2024 20:00 CALCIUM 9.3 mg/dL 01/07/2024 20:00 CARBON DIOXIDE 26 mEq/L 01/07/2024 20:00 GLUCOSE [...] % 10/08/2023 20:00 POIKILOCYTOSIS 1+ 10/08/2023 20:00 ACTIVE INPT MEDS: No medications found. PROCEDURES: CT PELVIS W/CONT 05/23/24 FINDINGS: Interval placement of left sigmoid colostomy which appears uncomplicated. No bowel obstruction or perforation. No free or loculated fluid in the visualized pelvis. Surgical implant in the left perirectal region again noted with decreased surrounding inflammation and no evidence for an abscess in the left periareolar anal/perirectal aspect of the ischial rectal fossa. Normal appendix. No inflammation the visualized bowel loops. The visualized portions of the ureters and bladder and prostate gland are unremarkable. Impression: Uncomplicated left ventral sigmoid colostomy. Surgical implant in the left perianal/perirectal space again noted. Decreased inflammation in this area without discrete fluid collection identified. DIAGNOSIS: Perianal abscesses s/p drainage and seton placement ASSESSMENT/PLAN: 38-year-old MALE with PMHx JESUS on CPAP, migraines, tobacco use, internal/external hemorrhoids s/p L lateral and R posterolateral excision hemorrhoidectomy (Jul 2021), EUA w/ biopsy and fulguration of small ulcer (Jul 2022), EUA w/ botox injection and cauterization of granulation tissue (01/04/23), and perianal abscess drainage with setons placement in November 2023, s/p lap loop sigmoid colostomy 01/05/2024, following up on perianal abscesses and discussion of seton removal. Discussed imaging which showed overall improvement of infection with ivett active fluid collections. Removed x2 setons in clinic with single seton remaining. Patient to follow up with GI for scope on August 22. He will follow up in clinic the following wednesday to discuss scope results and next steps. - x2 setons removed in clinic - Continue to keep area clean and dry as able - Follow up with GI for colonoscopy 08/22/24 - Follow up in clinic the following Wednesday after scope /es/ MAXWELL MILAN MD Signed: 05/31/2024 14:56 /es/ COLBY LAING MD Staff Physician, General Surgery I Cosigned: 05/31/2024 15:13 MAXWELL MILAN [facility]
--- OUTSIDE RECORDS SUMMARY | 2025-01-27 15:27 | XMS_ITS | Encounter Summary ---
Author Name [facility] Organization [facility] Address [address], [place] [address] Care Team Providers Care Shipper Name Role Phone MITCHEL ROSEN Primary Care [...] ION UHEAL TH Dec 25, 2019 EAL [id number] RA ANGELA ESQUIVEL PATIENT [facility] REPUB LIC SERVI KATI Aug 26, 2019 [id number] [phone] RA ANGELA ESQUIVEL PATIENT [facility] PREFERRED PROVIDER ORGANIZAT ION (PPO) REPUB LIC [employer] Aug 26, 2019 [id number] RA ANGELA ESQUIVEL PATIENT Selected Encounter This section includes the information on record at ID for the Encounter. Date/Time Encounter Type Encounter Description Reason Provider Source Jan 09, 2025 05:10 AM OFFICE O/P EST LOW 20 MIN GENERAL SURGERY ICD-10-CM H60.12 Cellulitis of left external ear DAJA CARTER III [facility] Encounter Template Text not used by ID Assessments - Encounter Diagnoses This section includes the primary and secondary diagnoses documented for the Encounter. Date/Time Primary/Secondary Diagnosis Diagnosis Name Provider Source Jan 09, 2025 09:30 AM PRIMARY Cellulitis of left external ear DAJA CARTER III [facility] Plan of Treatment: Future Appointments (+ 6 months) and Future Tests (+/- 45 days) The Plan of Treatment section includes future care activities for the patient [facility] This section includes future appointments and future orders which are active, pending or scheduled. Future Appointments This section includes appointments that were scheduled to occur 6 months from the date of the Encounter, up to a maximum of 20 appointments. The data comes from all ID treatment facilities. Appointment Date/Time Appointment Type Appointme nt Facility Name Feb 05, 2025 02:30 PM [facility] Feb 14, 2025 02:00 PM AMBULATORY - SURGERY [facility] Active, Pending, and Scheduled Orders This section includes a listing of several types of active, pending, and scheduled orders, including clinic medications orders, diagnostic test orders, procedure orders and consult orders; where the start date of the order is 45 days before the date of the Encounter or 45 days after the date of theEncounter. The data comes from all [facility]. Test Date/Time Test Type Test Details Facility Name Jan 09, 2025 12:00 AM Laboratory - Blood Bank Order TYPE & SCREEN - LAB BLOOD SP [facility] Jan 09, 2025 10:41 AM Pharmacy - Clinic Medication Order [facility] Vital Signs: All taken on the encounter date This section contains inpatient and outpatient Vital Signs collected on the date of the Encounter. Date/Time Temperature Pulse Blood Pressure Respiratory Rate SP02 Pain Height Weight Body Mass Index Source Jan 09, 2025 11:00 AM 97.9 F 63 /min 116/59 mm[Hg] 18 /min 99 % 0 [facility] Jan 09, 2025 08:45 AM 97.9 F 63 /min 127/89 mm[Hg] 16 /min 99 % 0 74 in 235 lb 30 [facility] Social History: Smoking Status (Most current) and Tobacco Use (All prior to encounter date) This section includes the most current, and the historical, smoking and tobacco- related health factors from the ID facility where the Encounter took place. Current Smoking Status This section includes the most current smoking, or tobacco-related health factor, from the ID facility where the Encounter took place. Date/Time Current Smoking Status Comment Rosie ity Jul 22, 2023 10:43 AM VA-TOBACCO FORMER USER [facility] Tobacco Use History This section includes a history of the smoking, or tobacco-related health factors, that were collected on or before the date of the Encounter. The data comes from the ID facility where the Encounter took place. 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 Date/Time Encounter Note(s) Provider Source Jan 09, 2025 10:37 AM PHYSICIAN EDUCATION DISCHARGE NOTE: LOCAL TITLE: DISCHARGE INSTRUCTIONS ST STANDARD TITLE: PHYSICIAN EDUCATION DISCHARGE NOTE DATE OF NOTE: JAN 09, 2025@10:37 ENTRY DATE: JAN 09, 2025@10:38:02 AUTHOR: LORA IVY EXP COSIGNER: JOVANNY CARTER III URGENCY: STATUS: COMPLETED JAN 09, 2025 DIAGNOSES: Recurrent perirectal abscess s/p seton placement PROCEDURES: Rectal exam under anesthesia, seton removal 2. FUTURE APPOINTMENT(S): *To reschedule [facility] appointments call and use ext [phone] Please follow up with Vascular/General Surgery in clinic, you will be contacted regarding your appointment. date/time clinic phone number 02/05/25 2:30 pm [facility]- C[facility] PACT 7 PCP [phone] *This listing may be incomplete. Please refer to Appointment Mgmt.listing for any additional patient appointments 3. DISCHARGE MEDICATIONS: Active Outpatient Medications (including Supplies): Active Outpatient Medications Status 1) ADHESIVE REMOVER WIPE H#8545 USE/APPLY DIRECTED TO ACTIVE AFFECTED AREA(S) USE DIRECTED 2) APPLIANCE DEODORANT SPRAY M-9 SMALL AMOUNT TO AFFECTED ACTIVE AREA(S) NEEDED TO OSTOMY POUCH 3) BARRIER,ADAPT CERARING H#8284 USE BARRIER STOMA TWO TIMES ACTIVE PER WEEK (10 BARRIERS = 30 DAY SUPPLY) Indication: FOR OSTOMY CARE 4) BARRIER,OSTOMY,NEW IMAGE H#74429 USE BARRIER STOMA TWO TIMES ACTIVE PER WEEK AND USE BARRIER NEEDED (5 BARRIERS = 30 DAY SUPPLY) USE WITH OSTOMY APPLIANCE CHANGE TWICE WEEKLY. (DUE TO WORK ENVIRONMENT NEEDS TO CHANGE BARRIER MORE FREQUENTLY THAN TWICE WEEKLY ON OCCASION) Indication: FOR OSTOMY CARE 5) IBUPROFEN 600MG TAB TAKE ONE TABLET BY MOUTH FOUR TIMES A ACTIVE DAY NEEDED TAKE WITH FOOD. Indication: FOR PAIN 6) PASTE,STOMAHESIVE C#0209-10 APPLY SPARINGLY STOMA USE ACTIVE DIRECTED 7) POUCH,DRAINABLE,NEW IMAGE H#08795 USE POUCH STOMA TWO TIMES ACTIVE PER WEEK Indication: FOR OSTOMY CARE 8) POWDER,STOMAHESIVE C#0255-10 TAKE/APPLY SMALL AMOUNT TO ACTIVE AFFECTED AREA(S) TWICE WEEKLY 9) SERTRALINE HCL 100MG TAB TAKE ONE TABLET BY MOUTH EVERY ACTIVE MORNING Indication: FOR DEPRESSION 10) SKIN BARRIER FILM 28ML 3M#3346 APPLY 1 SPRAY TO AFFECTED ACTIVE AREA(S) ONCE A DAY NEEDED 11) SKIN PREP,NO STING WIPE USE/APPLY 1 PAD TO AFFECTED AREA(S) ACTIVE USE DIRECTED 12) TAPE,PINK 1.5IN X 5YD USE/APPLY TAPE TO AFFECTED AREA(S) USE ACTIVE DIRECTED Active Non-VA Medications Status 1) Non-VA CHOLECALCIF 50MCG (D3-2,000UNIT) TAB 2000UNIT BY ACTIVE MOUTH ONCE A DAY 2) Non-VA FISH OIL 1000MG (500MG DHA/EPA) CAP 1000MG BY MOUTH ACTIVE ONCE A DAY Indication: UNKNOWN 3) Non-VA TESTOSTERONE CYP 200MG/ML 1ML IN OIL 100MG/0.5ML ACTIVE DEEP INTRAMUSCULARLY TWO TIMES PER WEEK Indication: FOR LOW TESTOSTERONE 15 Total Medications NEW MEDICATIONS (and indicatons): Tylenol as needed for pain The following changes were made to the medications you were taking prior to this hospitalization: None These medications have been stopped during your hospitalization (and reason why): None At your next appointment, please remember to bring all of your medication bottles with you Medication Reconciliation: I have discussed active and pending medications with the patient and/or after school caregiver. I have made changes as appropriate. 4. DISCHARGE INTRUCTIONAL MATERIALS 5. WOUND MANAGEMENT: OK to shower as usual, wash over your incision sites with soap and water. Redress wound daily and when needed. 6. DISCHARGE DIETARY INSTRUCTIONS: Ok to resume previous diet. 7. DISCHARGE PHYSICAL ACTIVITY INSTRUCTIONS: Please do not lift anything more than 10 pounds until follow up. Youre activity will be limited for several weeks, this will be further discussed in clinic. OK to walk and climb stairs. 8. OTHER (Include employment status): If you need FMLA paperwork signed please contact Gin Shipley [phone]. 9. WORSENING and/or DANGEROUS SYMPTOMS TO REPORT If you experience fever, increased pain, spreading redness around your incision sites, nausea, vomiting or purulent drainage from your wounds or shortness of breath please call [phone] or return to the ED. Specialist Information: If you would like to contact unit II surgery, please call Gin Shipley during regular business hours at . Follow-up with your Primary Care Physician or Specialist or call [facility] Helpline: [phone] /elvis/ LROA IVY Resident Physician Signed: 01/09/2025 10:40 /elvis/ Jovanny Carter III, MD [facility] General Surgery Attending Cosigned: 01/10/2025 17:[address] [facility] Jan 09, 2025 10:32 AM OPERATIVE NOTE: LOCAL TITLE: BRIEF OP NOTE STL STANDARD TITLE: OPERATIVE NOTE DATE OF NOTE: JAN 09, 2025@10:32 ENTRY DATE: JAN 09, 2025@10:32:33 AUTHOR: LORA IVY EXP COSIGNER: JOVANNY CARTER III URGENCY: STATUS: COMPLETED Date of Surgery:01/09/25 Surgery Case #:[id number] Pre-Operative Diagnosis:Recurrent perirectal abscess Post-Operative Diagnosis:Same Surgery Performed:Rectal exam underanesthesia, seton removal Attending:Jovanny Carter MD Surgeon:Lora Ivy MD Type of Anesthesia:MAC Specimens:No If yes, Type and number of specimens: Findings: Healthy non-inflamed appearing hemorrhoids. Seton in place without fluctuance or discharge appreciated around or from track. Minimal normal rectal discharge. Complications:None Estimated Blood Loss:None Blood Given? No If yes, how much? Fluid Replacement:See Anesthesia note Status En-Route to PACU? Critical: No Satisfactory: Yes /lino IVY Resident Physician Signed: 01/09/2025 10:37 /elvis/ Jovanny Carter III, MD [facility] General Surgery Attending Cosigned: 01/09/2025 14:52 LORA IVY [facility] Jan 09, 2025 09:30 AM SURGERY ATTENDING NOTE: LOCAL TITLE: ATTENDING SURGEON PREOPERATIVE STL STANDARD TITLE: SURGERY ATTENDING NOTE DATE OF NOTE: JAN 09, 2025@09:30 ENTRY DATE: JAN 09, 2025@09:30:21 AUTHOR: JOVANNY CARTER I EXP COSIGNER: URGENCY: STATUS: COMPLETED Surgical H&P Date of Planned Procedure: Dec Surgical H&P Dated Dec reviewed on Dec Surgical H&P completed within 30 days of planned procedure:Yes Attending Surgeon Preoperative STL completed within 24 hours of procedure? Yes Changes noted to the H&P:NO I have seen and examined the patient and agree with the H&P, assessment and plan. YES Preoperative Findings/Diagnosis: Previous complex fistula in ano treated with setons and then diverting colostomy Plan/Procedure: Rectal exam under anesthesia, possible fistulotomy, possible seton removal /es/ Jovanny Carter III, MD [facility] General Surgery Attending Signed: 01/09/2025 09:31 JOVANNY CARTER III [facility] Jan 09, 2025 05:12 AM SURGERY ATTENDING PRE OPERATIVE E & M NOTE: LOCAL TITLE: GENERAL SURGERY PRE-OP HISTORY AND PHYSICAL STL STANDARD TITLE: SURGERY ATTENDING PRE OPERATIVE E & M NOTE DATE OF NOTE: JAN 09, 2025@05:12 ENTRY DATE: JAN 09, 2025@05:12:45 AUTHOR: LORA IVY EXP COSIGNER: JOVANNY CARTER III URGENCY: STATUS: COMPLETED GENERAL SURGERY II PRE-OPERATIVE HISTORY & PHYSICAL HPI: 39 YEAR OLD MALE with PMH s/f JESUS on CPAP, migraines, tobacco use, internal/external hemorrhoids s/p L lateral and R posterolateral excisional hemorrhoidectomy (07/2021), EUA w/biopsy and fulguration of small ulcer (07/2022), EUA w/botox injection and cauterization of granulation tissue (01/04/23), and perianal abscess s/p drainage and seton placement (11/2023), and persistent non- healing perianal abscess s/p laparoscopic loop sigmoid colostomy (01/05/24). Patient last seen in clinic on 11/15/24 with reports of persistent rectal pain and discharge for which he presents today for rectal exam under anesthesia and seton removal. Patient denies any changes in health since last seen in clinic. Denies fevers, chills, abdominal/pelvic pain, n/v, constipation, diarrhea, rectal bleeding. Continues to note persistent mucuous discharge but significantly improved. 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 15) Perirectal abscess ROS: Negative unless otherwise stated in HPI ALLERGIES: Patient has answered NKA ACTIVE OUTPATIENT MEDS: Active Outpatient Medications (including Supplies): Active Outpatient Medications Status 1) ADHESIVE REMOVER WIPE H#4246 USE/APPLY DIRECTED TO ACTIVE AFFECTED AREA(S) USE DIRECTED 2) APPLIANCE DEODORANT SPRAY M-9 SMALL AMOUNT TO AFFECTED ACTIVE AREA(S) NEEDED TO OSTOMY POUCH 3) BARRIER,ADAPT CERARING H#2572 USE BARRIER STOMA TWO TIMES ACTIVE PER WEEK (10 BARRIERS = 30 DAY SUPPLY) Indication: FOR OSTOMY CARE 4) BARRIER,OSTOMY,NEW IMAGE H#77723 USE BARRIER STOMA TWO TIMES ACTIVE PER WEEK AND USE BARRIER NEEDED (5 BARRIERS = 30 DAY SUPPLY) USE WITH OSTOMY APPLIANCE CHANGE TWICE WEEKLY. (DUE TO WORK ENVIRONMENT NEEDS TO CHANGE BARRIER MORE FREQUENTLY THAN TWICE WEEKLY ON OCCASION) Indication: FOR OSTOMY CARE 5) IBUPROFEN 600MG TAB TAKE ONE TABLET BY MOUTH FOUR TIMES A ACTIVE DAY NEEDED TAKE WITH FOOD. Indication: FOR PAIN 6) PASTE,STOMAHESIVE C#3139-10 APPLY SPARINGLY STOMA USE ACTIVE DIRECTED 7) POUCH,DRAINABLE,NEW IMAGE H#09922 USE POUCH STOMA TWO TIMES ACTIVE PER WEEK Indication: FOR OSTOMY CARE 8) POWDER,STOMAHESIVE C#2115-10 TAKE/APPLY SMALL AMOUNT TO ACTIVE AFFECTED AREA(S) TWICE WEEKLY 9) SERTRALINE HCL 100MG TAB TAKE ONE TABLET BY MOUTH EVERY ACTIVE MORNING Indication: FOR DEPRESSION 10) SKIN BARRIER FILM 28ML #5396 APPLY 1 SPRAY TO AFFECTED ACTIVE AREA(S) ONCE A DAY NEEDED 11) SKIN PREP,NO STING WIPE USE/APPLY 1 PAD TO AFFECTED AREA(S) ACTIVE USE DIRECTED 12) TAPE,PINK 1.5IN X 5YD USE/APPLY TAPE TO AFFECTED AREA(S) USE ACTIVE DIRECTED Active Non-VA Medications Status 1) Non-VA CHOLECALCIF 50MCG (D3-2,000UNIT) TAB 2000UNIT BY ACTIVE MOUTH ONCE A DAY 2) Non-VA FISH OIL 1000MG (500MG DHA/EPA) CAP 1000MG BY MOUTH ACTIVE ONCE A DAY Indication: UNKNOWN 3) Non-VA TESTOSTERONE CYP 200MG/ML 1ML IN OIL 100MG/0.5ML ACTIVE DEEP INTRAMUSCULARLY TWO TIMES PER WEEK Indication: FOR LOW TESTOSTERONE 15 Total Medications PHYSICAL EXAM: Gen: NAD HEENT: AT/NC, EOMI, oropharynx clear CV: RRR Pulm: Nonlabored respirations Abd: Soft, NT/ND, colostomy pink and productive Anal: Deferred for OR MSK: WWP, no c/c/e Neuro: Moving all extremities, no focal deficits Psych: Appropriate mood and affect LABS: CHEM 7: SODIUM 139 mEq/L 11/15/2024 15:47 POTASSIUM 3.9 mEq/L 11/15/2024 15:47 CHLORIDE 107 mEq/L 11/15/2024 15:47 UREA NITROGEN 11.0 mg/dL 11/15/2024 15:47 CREATININE 1.06 mg/dL 11/15/2024 15:47 CALCIUM 9.2 mg/dL 11/15/2024 15:47 CARBON DIOXIDE 24 mEq/L 11/15/2024 15:47 GLUCOSE 89 mg/dL 11/15/2024 15:47 EGFR (CKD-EPI 2020) 90.4 11/15/2024 15:47 WBC: 8.0 10*3/uL (11/15/24 15:47) HGB: HGB 15.7 g/dL 11/15/2024 15:47 HCT: 45.8 % (11/15/24 15:47) PLATELETS: PLT 231 10*3/uL 11/15/2024 15:47 DIAGNOSIS: Anal discharge/pain ASSESSMENT/PLAN: 39 YEAR OLD MALE with PMH s/f internal/external hemorrhoids s/p L lateral and R posterolateral excisional hemorrhoidectomy (07/2021), EUA w/biopsy and fulguration of small ulcer (07/2022), EUA w/botox injection and cauterization of granulation tissue (01/04/23), and perianal abscess s/p drainage and seton placement (11/2023), and persistent non-healing perianal abscess s/p laparoscopic loop sigmoid colostomy (01/05/24). Patient with persistent rectal pain and ischarge for which he presents today for rectal exam under anesthesia and seton removal. - To OR for rectal exam under anesthesia, possible fistulotomy and possible seton removal - Consent obtained after discussion of risks, benefits, indications, alternatives - NPO since midnight - Plan for discharge home post-op /elvis/ LORA IVY Resident Physician Signed: 01/09/2025 09:23 /elvis/ Jovanny Carter III, MD [facility] General Surgery Attending Cosigned: 01/09/2025 09:[address] [facility]
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
--- OUTSIDE RECORDS SUMMARY | 2025-01-27 15:27 | XMS_ITS | Encounter Summary ---
Author Name [facility] [place] Organization [facility] [place] Address [address], [place] [address] Care Team Providers Care Fur Buyer Name Role Phone MITCHEL ROSEN Primary Care [...] PRESCRIPT ION UHEAL TH Dec 25, 2019 [facility] [id number] RA ANGELA ESQUIVEL PATIENT [facility] MENTAL HEALTH REPUB LIC SERVI KATI Aug 26, 2019 [id number] [phone] RA ANGELA ESQUIVEL PATIENT [facility] PREFERRED PROVIDER ORGANIZAT ION (PPO) REPUB LIC [employer] Aug 26, 2019 [id number] [phone] RA ANGELA ESQUIVEL PATIENT Selected Encounter This section includes the information on record at [place] for the Encounter. Date/Time Encounter Type Encounter Description Reason Pro vider Source IHE Encounter Template Text not used by VA
--- OUTSIDE RECORDS SUMMARY | 2025-01-27 15:27 | XMS_ITS | Encounter Summary ---
Author Name [facility] [place] [facility] [place] Address [address] [facility], [place] [address] Care Team Providers Care Multifocal Button Generator Name Role Phone MITCHEL ROSEN Primary Care [...] ION UHEAL TH Dec 25, 2019 EAL [id number] RA ANGELA ESQUIVEL PATIENT [facility] MENTAL HEALTH REPUB LIC SERVI KATI Aug 26, 2019 [id number] [phone] RA ANGELA ESQUIVEL PATIENT [facility] PREFERRED PROVIDER ORGANIZAT ION (PPO) REPUB LIC [employer] Aug 26, 2019 [id number] [phone] RA ANGELA ESQUIVEL PATIENT Selected Encounter This section includes the information on record at [place] for the Encounter. Date/Time Encounter Type Encounter Description Reason Provider Source Mar 22, 2024 02:00 PM OFFICE O/P EST MOD 30 MIN GENERAL SURGERY ICD-10-CM K60.3 Anal fistula COLBY ALEJO Encounter Template Text not used by [place] Assessments - Encounter Diagnoses This section includes the primary and secondary diagnoses documented for the Encounter. Date/Time Primary/Secondary Diagnosis Diagnosis Name Provider Source Mar 29, 2024 01:40 PM PRIMARY Anal fistula DAVIDKYACOLBY [facility] Plan of Treatment: Future Appointments (+ 6 months) and Future Tests (+/- 45 days) The Plan of Treatment section includes future care activities for the patient [facility] [place] [facility] This section includes future appointments and future orders which are active, pending or scheduled. Future Appointments This section includes appointments that were scheduled to occur 6 months from the date of the Encounter, up to a maximum of 20 appointments. The data comes from all [place] treatment facilities. Appointment Date/Time Appointment Type Appointme nt Facility Name May 03, 2024 02:00 PM AMBULATORY - SURGERY [facility] May 22, 2024 08:00 AM AMBULATORY - MEDICINE [facility] May 23, 2024 01:30 PM [facility] NONE [facility] May 31, 2024 02:00 PM AMBULATORY - SURGERY . [facility] Jul 31, 2024 03:00 PM AMBULATORY - MEDICINE [facility] Aug 22, 2024 08:15 AM AMBULATORY - MEDICINE [facility] Aug 23, 2024 01:30 PM AMBULATORY - SURGERY . [facility] Aug 31, 2024 02:00 PM AMBULATORY - MEDICINE [facility] Vital Signs: All taken on the encounter date This section contains inpatient and outpatient Vital Signs collected on the date of the Encounter. Date/Time Temperature Pulse Blood Pressure Respiratory Rate SP02 Pain Height Weight Body Mass Index Source Mar 22, 2024 02:32 PM 97.9 80 124/72 18 98 5 74 234.4 30 [facility] Social History: Smoking Status (Most current) and Tobacco Use (All prior to encounter date) This section includes the most current, and the historical, smoking and tobacco- related health factors from the [place] facility where the Encounter took place. Current Smoking Status This section includes the most current smoking, or tobacco-related health factor, from the [place] facility where the Encounter took place. Date/Time Current Smoking Status Comment Rosie ity Jul 22, 2023 10:43 AM VA-TOBACCO QUIT 1 TO < 5 YRS [facility] Tobacco Use History This section includes a history of the smoking, or tobacco-related health factors, that were collected on or before the date of the Encounter. The data comes from the [place] facility where the Encounter took place. Date/Time Smoking Status/Tobacco Use Comment F acility Jul 22, 2023 10:43 AM VA-TOBACCO QUIT 1 TO < 5 YRS [facility] Jul 22, 2022 01:24 PM VA-TOBACCO FORMER USER [facility] Jul 22, 2022 01:24 PM VA-TOBACCO QUIT 1 TO < 5 YRS [facility] Sep 10, 2020 02:44 PM VA-TOBACCO DOESNT USE WI 30 MIN WAKEUP [facility] Sep 10, 2020 02:44 PM VA-TOBACCO USE > 1 5 LESS THAN 30 YEARS [facility] Sep 10, 2020 02:44 PM VA-TOBACCO USE ADVICE 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 Sep 10, 2020 02:44 PM VA-TOBACCO USE MED NO [facility] Sep 10, 2020 02:44 PM VA-TOBACCO USER SOME DAYS [facility] May 14, 2009 08:49 AM CURRENT TOBACCO USER [facility] Encounter Notes: All associated encounter notes This section contains the clinical notes associated to the Encounter. Date/Time Encounter Note(s) Provider Source Mar 22, 2024 04:06 PM SURGERY NOTE: LOCAL TITLE: GENERAL SURGERY NOTE ST STANDARD TITLE: SURGERY NOTE DATE OF NOTE: MAR 22, 2024@16:06 ENTRY DATE: MAR 22, 2024@16:07:05 AUTHOR: SILVANO VILLELA EXP COSIGNER: COLBY ALEJO URGENCY: STATUS: COMPLETED GENERAL SURGERY NOTE ST Has ADDENDA LOCAL TITLE: GENERAL SURGERY NOTE ST STANDARD TITLE: SURGERY NOTE DATE OF NOTE: MAR 22, 2024@15:46 ENTRY DATE: MAR 22, 2024@15:47:04 AUTHOR: SILVANO VILLELA EXP COSIGNER: COLBY ALEJO URGENCY: STATUS: UNSIGNED MAR 22, 2024 HPI: Patient is a 38yo male with pmhx of chronic joint pain, JESUS on CPAP, migraines and tobacco use, and internal/external hemorrhoids s/p L lateral and R posterolateral excision hemorrhoidectomy (Jul 2021), EUA w/ biopsy and fulguration of small ulcer (Jul 2022), EUA w/ botox injection and cauterization of granulation tissue (01/04/23), and perianal abscess drainage with setons placement in November 2023, s/p lap loop sigmoid colostomy 01/05/2024, for management of recurrent persistent non healing perianal abscesses, presenting for follow up and wound check of his perianal abscesses. S: Since he was last seen from his surgery, he states that his perianal pain somewhat improved due diverting his stool to his stoma site. He does an external pain, present when tugging one of his setons. He states that he is having moderate grayish sometimes stoolish drainage from his seton sites, he changes on his anal pads 4-5 times per day. He states he is feeling well besides that, and his pain is now well controlled with Ibuprofen. Patient states he is scheduled to undergo a colonoscopy this upcoming April. O: Temp: 97.9 F [36.6 C] (03/22/2024 14:32) Pulse Ox: Measurement DT POx (L/MIN)(%) 03/22/2024 14:32 98 01/20/2024 08:52 96 01/08/2024 08:54 97 01/08/2024 06:31 96 PULSE: 80 (03/22/2024 14:32) RESPIRATION: 18 (03/22/2024 14:32) BLOOD PRESSURE: 124/72 (03/22/2024 14:32) Life Sustaining Treatment Orders PHYSICAL EXAM: General No acute distress, well-nourished, appropriate HEENT Moist mucous membranes, no lesion or exudate Neck - Supple, no thyromegaly Lung- Symmetric chest rise and fall, unlabored breathing at rest Abd - soft, non-tender, non-distended. Patient with healthy pink, emerald colored stoma. NO evidence of infection or prolapse. Productive of liquid stool. Anus: 3 x setons placed, the left upper one which is the deeper of the 3, causes pain on manipulation. There is no surrounding erythema nor active drainage. Ext - no edema, no cyanosis Lymph - no cervical or supraclavicular LAD Skin - no rashes, nodules, or jaundice LABS: CHEM 7: SODIUM 140 mEq/L 01/07/2024 [...] 20:00 ACTIVE INPT MEDS: No medications found. DIAGNOSIS: Non healing perianal abcesses ASSESSMENT/PLAN: Mary is a 38 yo gentleman, previously healthy with difficult to manage perianal abscesses s/p drainage and seton placement in November 2023 and lap loop colostomy in December 2023, currently still complaining of perianal pain which could another undrained collection. Before proceeding with removal of Setons, we will order a pelvic MRI to evaluate his fistula tracts and any undrained collections. RTC in a month. /elvis/ SILVANO VILLELA Signed: 03/22/2024 16:14 /elvis/ COLBY ALEJO MD Staff Physician, General Surgery I Cosigned: 03/22/2024 16:16 03/22/2024 ADDENDUM STATUS: COMPLETED I have seen and examined this patient and have confirmed the resident's findings from above. I have assisted in the formation of this plan as stated above and have made changes as appropriate. I agree with the plan as stated above. /elvis/ COLBY ALEJO MD Staff Physician, General Surgery I Signed: 03/22/2024 16:16 SILVANO VILLELA [facility] Mar 22, 2024 03:46 PM SURGERY NOTE: LOCAL TITLE: GENERAL SURGERY NOTE STL STANDARD TITLE: SURGERY NOTE DATE OF NOTE: MAR 22, 2024@15:46 ENTRY DATE: MAR 22, 2024@15:47:04 AUTHOR: SILVANO VILLELA EXP COSIGNER: COLBY ALEJO URGENCY: STATUS: COMPLETED GENERAL SURGERY NOTE STL Has ADDENDA MAR 22, 2024 HPI: Patient is a 38yo male with pmhx of chronic joint pain, JESUS on CPAP, migraines and tobacco use, and internal/external hemorrhoids s/p L lateral and R posterolateral excision hemorrhoidectomy (Jul 2021), EUA w/ biopsy and fulguration of small ulcer (Jul 2022), EUA w/ botox injection and cauterization of granulation tissue (01/04/23), and perianal abscess drainage with setons placement in November 2023, s/p lap loop sigmoid colostomy 01/05/2024, for management of recurrent persistent non healing perianal abscesses, presenting for follow up and wound check of his perianal abscesses. S: Since he was last seen from his surgery, he states that his perianal pain somewhat improved due diverting his stool to his stoma site. He does an external pain, present when tugging one of his setons. He states that he is having moderate grayish sometimes stoolish drainage from his seton sites, he changes on his anal pads 4-5 times per day. He states he is feeling well besides that, and his pain is now well controlled with Ibuprofen. Patient states he is scheduled to undergo a colonoscopy this upcoming April. O: Temp: 97.9 F [36.6 C] (03/22/2024 14:32) Pulse Ox: Measurement DT POx (L/MIN)(%) 03/22/2024 14:32 98 01/20/2024 08:52 96 01/08/2024 08:54 97 01/08/2024 06:31 96 PULSE: 80 (03/22/2024 14:32) RESPIRATION: 18 (03/22/2024 14:32) BLOOD PRESSURE: 124/72 (03/22/2024 14:32) Life Sustaining Treatment Orders PHYSICAL EXAM: General No acute distress, well-nourished, appropriate HEENT Moist mucous membranes, no lesion or exudate Neck - Supple, no thyromegaly Lung- Symmetric chest rise and fall, unlabored breathing at rest Abd - soft, non-tender, non-distended. Patient with healthy pink, emerald colored stoma. NO evidence of infection or prolapse. Productive of liquid stool. Anus: 3 x setons placed, the left upper one which is the deeper of the 3, causes pain on manipulation. There is no surrounding erythema nor active drainage. Ext - no edema, no cyanosis Lymph - no cervical or supraclavicular LAD Skin - no rashes, nodules, or jaundice LABS: CHEM 7: SODIUM 140 mEq/L 01/07/2024 [...] 20:00 ACTIVE INPT MEDS: No medications found. DIAGNOSIS: Non healing perianal abcesses ASSESSMENT/PLAN: Mary is a 38 yo gentleman, previously healthy with difficult to manage perianal abscesses s/p /elvis/ COLBY ALEJO MD Staff Physician, General Surgery I Signed: 05/03/2024 08:50 for SILVANO VILLELA /elvis/ COLBY ALEJO MD Staff Physician, General Surgery I Cosigned: 05/03/2024 08:50 05/03/2024 ADDENDUM STATUS: COMPLETED This note was incomplete by resident. Please see another note from this day. /elvis/ COLBY ALEJO MD Staff Physician, General Surgery I Signed: 05/03/2024 08:51 COLBY ALEJO [facility]
--- OUTSIDE RECORDS SUMMARY | 2025-01-27 15:27 | XMS_ITS | Encounter Summary ---
Author Name [facility] [place] [facility] [place] [facility] [place] Address [address] [facility], [place] [address] Care Team Providers Care Patient Transport Officer Name Role Phone SHARMIN ROSEN Primary Care [...] ION UHEAL TH Dec 25, 2019 EAL [id number] RA ANGELA ESQUIVEL PATIENT [facility] MENTAL HEALTH REPUB LIC SERVI KATI Aug 26, 2019 [id number] [phone] RA ANGELA ESQUIVEL PATIENT [facility] PREFERRED PROVIDER ORGANIZAT ION (PPO) REPUB LIC [employer] Aug 26, 2019 [id number] RA ANGELA ESQUIVEL PATIENT Selected Encounter This section includes the information on record at [place] for the Encounter. Date/Time Encounter Type Encounter Description Reason Provider Source Aug 23, 2024 01:30 PM OFFICE O/P EST MOD 30 MIN GENERAL SURGERY ICD-10-CM H60.12 Cellulitis of left external ear COLBY ALEJO Elliot Encounter Template Text not used by [place] Assessments - Encounter Diagnoses This section includes the primary and secondary diagnoses documented for the Encounter. Date/Time Primary/Secondary Diagnosis Diagnosis Name Provider Source Aug 23, 2024 02:42 PM PRIMARY Cellulitis of left external ear MARC VANCE [facility] Plan of Treatment: Future Appointments (+ 6 months) and Future Tests (+/- 45 days) The Plan of Treatment section includes future care activities for the patient from all [place] [facility]. This section includes future appointments and future orders which are active, pending or scheduled. Future Appointments This section includes appointments that were scheduled to occur 6 months from the date of the Encounter, up to a maximum of 20 appointments. The data comes from all [place] treatment facilities. Appointment Date/Time Appointment Type Appointme nt Facility Name Aug 31, 2024 02:00 PM AMBULATORY - MEDICINE [facility] Sep 26, 2024 03:00 PM AMBULATORY - MEDICINE [facility] Oct 09, 2024 09:00 AM AMBULATORY - MEDICINE [facility] Oct 16, 2024 03:30 PM AMBULATORY - NONE [facility] Nov 15, 2024 02:00 PM AMBULATORY - SURGERY [facility] Jan 09, 2025 08:30 AM AMBULATORY - NONE [facility] Feb 05, 2025 02:30 PM AMBULATORY - MEDICINE [facility] Feb 14, 2025 02:00 PM AMBULATORY - SURGERY [facility] Vital Signs: All taken on the encounter date This section contains inpatient and outpatient Vital Signs collected on the date of the Encounter. Date/Time Temperature Pulse Blood Pressure Respiratory Rate SP02 Pain Height Weight Body Mass Index Source Aug 23, 2024 01:01 PM 98.8 18 146/82 86 97 3 74 240.7 31 [facility] Social History: Smoking Status (Most current) and Tobacco Use (All prior to encounter date) This section includes the most current, and the historical, smoking and tobacco- related health factors from the [place] facility where the Encounter took place. Current Smoking Status This section includes the most current smoking, or tobacco-related health factor, from the [place] facility where the Encounter took place. Date/Time Current Smoking Status Comment Rosie ity Jul 22, 2023 10:43 AM VA-TOBACCO FORMER USER [facility] Tobacco Use History This section includes a history of the smoking, or tobacco-related health factors, that were collected on or before the date of the Encounter. The data comes from the [place] facility where the Encounter took place. 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 The data comes from all [place] treatment facilities. Date/Time Pathology Report Provider Source Aug 25, 2024 10:48 AM LR SURGICAL PATHOL OGY REPORT: LOCAL TITLE: LR SURGICAL PATHOLOGY REPORT STANDARD TITLE: PATHOLOGY PROCEDURE NOTE DATE OF NOTE: AUG 25, 2024@10:48:45 ENTRY DATE: AUG 25, 2024@10:48:45 AUTHOR: DANGELO CODYIGNER: URGENCY: STATUS: COMPLETED $APHDR - - - [...] SIGNIFICANT LYMPHOID AGGREGATES AND HYPERPLASIA (SEE COMMENT) /elvis/ DANGELO CODY MD, PhD STAFF PATHOLOGIST Signed Aug 25, 2024@10:48 Performing Laboratory: Surgical Pathology Report Performed By: [address]# [id number] [address] [place] [id number] $FTR - - - - - - - - - - - - - - - - - - - - - - - - - - - - - - - - - - - - - - - - (End of report) DANGELO CODY MD Date Aug 25, 2024 - - - - - - - - - - - - - - - - - - - - - - - - - - - - - - - - - - - - - - - - MARY ESQUIVEL STANDARD FORM 515 ID:[id number] SEX:M :1985 AGE: 38 LOC:SEAN-GI/ENDO LAB ANESTHESIA2 PCP: Sharmin Rosen /lino CODY MD, PhD STAFF PATHOLOGIST Signed: 08/25/2024 10:48 [facility] Encounter Notes: All associated encounter notes This section contains the clinical notes associated to the Encounter. Date/Time Encounter Note(s) Provider Source Aug 23, 2024 01:34 PM SURGERY NOTE: LOCAL TITLE: GENERAL SURGERY NOTE STL STANDARD TITLE: SURGERY NOTE DATE OF NOTE: AUG 23, 2024@13:34 ENTRY DATE: AUG 23, 2024@13:34:12 AUTHOR: MARC VANCE EXP COSIGNER: COLBY ALEJO URGENCY: STATUS: COMPLETED GENERAL SURGERY NOTE STL Has ADDENDA AUG 23, 2024 Brief HPI: MARY ESQUIVEL is a 38-year-old [...] follow up. Patient last seen in clinic 05/31/2024, at that time x2 setons removed. Interval History: Overall patient's symptoms are unchanged from his previous clinic visit. He still has rectal drainage that appears yellow with occasional streaks of blood. He reports cleaning this area at least 6 times daily with dry toilet paper. This drainage worsens with increased activity. He also still experiences pain with sitting and prolonged walking. He is requesting a refill of his oxycodone today. He is also requesting additional barrier equipment for his ostomy bag. Had EGD / Colonoscopy 08/22/2024 which was concerning for esophageal esophagitis and IBD, respectively. Ileal and esophageal biopsies were taken and are awaiting interpretation. O: Temp: 98.8 F [37.1 C] (08/23/2024 13:01) Pulse Ox: Measurement DT POx (L/MIN)(%) 08/23/2024 13:01 97 05/31/2024 13:58 98 05/03/2024 14:01 98 03/22/2024 14:32 98 PULSE: 18 (08/23/2024 13:01) RESPIRATION: 86 (08/23/2024 13:01) BLOOD PRESSURE: 146/82 (08/23/2024 13:01) Life Sustaining Treatment Orders PHYSICAL EXAM General: in NAD HEENT: NC/AT, EOMI Neuro: no focal deficits CV: RRR Resp: unlabored respirations on room air Abdomen/Pelvis: soft, non-distended, non-tender. Ostomy site without leakage, erythema, edema, or ecchymosis Rectum: purulent drainage at the superior aspect of the intergluteal cleft with some surrounding erythema and induration; seton x1 visualized. MSK: non-edematous Psych: appropriate mood and affect LABS: [...] ACTIVE INPT MEDS: No medications found. DIAGNOSIS: Perianal Abscess ASSESSMENT/PLAN: MARY ESQUIVEL is a 38-year-old MALE with [...] healing perianal abscesses, presenting for follow up. Symptoms are unchanged from previous clinic visit. EGD / colonoscopy 08/22/2024 concerning for eosinophilic esophagitis and IBD, respectively. Ileal and esophageal biopsies taken and are pending. Repeat colonoscopy was recommended. In consideration of full clinical picture, patient's symptoms are concerning for Crohn's Disease. Will await biopsy results, but if positive for CD, patient will need to start treatment with biologic. After three months of treatment with biologic, will plan to remove final seton. - resend barrier equipment for ostomy bag - refill oxycodone 5mg daily prn pain - repeat colonoscopy after biopsies have resulted - Continue to keep area clean and dry as able - RTC in 3 months /elvis/ MARC VANCE RESIDENT PHYSICIAN Signed: 08/23/2024 14:42 /elvis/ COLBY ALEJO MD Staff Physician, General Surgery I Cosigned: 08/23/2024 14:56 08/23/2024 ADDENDUM STATUS: COMPLETED I have seen and examined this patient and have confirmed the resident's findings from above. I have assisted in the formation of this plan as stated above and have made changes as appropriate. I agree with the plan as stated above. Mr. Esquivel is a 38 year-old male with complex transsphincteric fistula with horseshoe abscess now with one seton in placement and proximally diverted with significant improvement. C-scope yesterday concerning for Crohn's disease with cobblestoning of mucosa in rectum and inflammation in terminal ileum; biopsies pending. Will await final pathology, but I think his presentation and images are consistent with Crohn's disease and will recommend treatment for such. If he has a significant response, may be able to remove seton in a few months and then later reverse colostomy if it is well healed. We discussed other possible options as well, and all questions were answered to his satisfaction. /es/ COLBY ALEJO MD Staff Physician, General Surgery I Signed: 08/23/2024 14:59 MARC VANCE [facility]
--- OUTSIDE RECORDS SUMMARY | 2025-01-27 15:27 | XMS_ITS | Encounter Summary ---
Author Name [facility] [place] Organization [facility] [place] [facility] [place] Address [address], [place] [address] Care Team Providers Care Supervisor [place] Name Role Phone MITCHEL ROSEN Primary Care [...] ION UHEAL TH Dec 25, 2019 EAL [id number] RA ANGELA ESQUIVEL PATIENT [facility] MENT[facility] HE[facility] REPUB LIC SERVI KATI Aug 26, 2019 [id number] [phone] RA ANGELA ESQUIVEL PATIENT [facility] PREFERRED PROVIDER ORGANIZAT ION (PPO) REPUB LIC [employer] Aug 26, 2019 [id number] [phone] RA ANGELA ESQUIVEL PATIENT Selected Encounter This section includes the information on record at [place] for the Encounter. Date/Time Encounter Type Encounter Description Reason Provider Source Jan 09, 2025 07:41 AM OFFICE O/P EST MOD 30 MIN ANESTHESIA PRE/POST-OP CONSULT ICD-10-CM Z01.818 Encounter for other preprocedural examination ALFRED-NANDO S,PAIGE BELINDA B IHE Encounter Template Text not used by [place] Assessments - Encounter Diagnoses This section includes the primary and secondary diagnoses documented for the Encounter. Date/Time Primary/Secondary Diagnosis Diagnosis Name Provider Source Jan 09, 2025 09:41 AM PRIMARY Encounter for other preprocedural examination ALFRED-MEDARDO WILLSONGIRMAMILAY O B [facility] Jan 09, 2025 09:41 AM SECONDARY Encounter for other specified surgical aftercare ALFREDMEDARDO ZAVALAUNMILAY O B [facility] Plan of Treatment: Future Appointments (+ 6 months) and Future Tests (+/- 45 days) The Plan of Treatment section includes future care activities for the patient from all [place] [facility]. This section includes future appointments and future orders which are active, pending or scheduled. Future Appointments This section includes appointments that were scheduled to occur 6 months from the date of the Encounter, up to a maximum of 20 appointments. The data comes from all [facility]. Appointment Date/Time Appointment Type Appointme nt Facility Name Feb 05, 2025 02:30 PM AMBULATORY - MEDICINE [facility] Feb 14, 2025 02:00 PM AMBULATORY - SURGERY [facility] Active, Pending, and Scheduled Orders This section includes a listing of several types of active, pending, and scheduled orders, including clinic medications orders, diagnostic test orders, procedure orders and consult orders; where the start date of the order is 45 days before the date of the Encounter or 45 days after the date of theEncounter. The data comes from all [facility]. Test Date/Time Test Type Test Details Facility Name Jan 09, 2025 12:00 AM Laboratory - Blood Bank Order TYPE & SCREEN - LAB BLOOD SP [facility] Jan 09, 2025 10:41 AM Pharmacy - Clinic Medication Order [facility] Vital Signs: All taken on the encounter date This section contains inpatient and outpatient Vital Signs collected on the date of the Encounter. Date/Time Temperature Pulse Blood Pressure Respiratory Rate SP02 Pain Height Weight Body Mass Index Source Jan 09, 2025 11:00 AM 97.9 F 63 /min 116/59 mm[Hg] 18 /min 99 % 0 [facility] Jan 09, 2025 08:45 AM 97.9 F 63 /min 127/89 mm[Hg] 16 /min 99 % 0 74 in 235 lb 30 [facility] Social History: Smoking Status (Most current) and Tobacco Use (All prior to encounter date) This section includes the most current, and the historical, smoking and tobacco- related health factors from the [place] facility where the Encounter took place. Current Smoking Status This section includes the most current smoking, or tobacco-related health factor, from the [place] facility where the Encounter took place. Date/Time Current Smoking Status Comment Facil ity Jul 22, 2023 10:43 AM VA-TOBACCO QUIT 1 TO < 5 YRS [facility] Tobacco Use History This section includes a history of the smoking, or tobacco-related health factors, that were collected on or before the date of the Encounter. The data comes from the [place] facility where the Encounter took place. 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 Date/Time Encounter Note(s) Provider Source Jan 09, 2025 11:24 AM ANESTHESIOLOGY POST OPERATIVE E & M NOTE: LOCAL TITLE: ANESTHESIA POST-OP STL STANDARD TITLE: ANESTHESIOLOGY POST OPERATIVE E & M NOTE DATE OF NOTE: JAN 09, 2025@11:24 ENTRY DATE: JAN 09, 2025@11:24:57 AUTHOR: CARLOS CHILDRESS EXP COSIGNER: URGENCY: STATUS: COMPLETED Post-Anesthetic Note No complications noted from anesthetic at the time of this note. Please look at intra-op flowsheet for details on anesthetic. Anesthesia intra-op flowsheet uploaded to [employer]. /elvis/ HUONG CHILDRESS MD ANESTHESIOLOGY/CRITICAL CARE MEDICINE Signed: 01/09/2025 11:25 CARLOS CHILDRESS [facility] Jan 09, 2025 07:42 AM ANESTHESIOLOGY PRE OPERATIVE E & M NOTE: LOCAL TITLE: ANESTHESIA PRE-OP STL STANDARD TITLE: ANESTHESIOLOGY PRE OPERATIVE E & M NOTE DATE OF NOTE: JAN 09, 2025@07:42 ENTRY DATE: JAN 09, 2025@07:42:54 AUTHOR: CARLOS CHILDRESS EXP COSIGNER: URGENCY: STATUS: COMPLETED MARY ESQUIVEL is a 39 year old MALE who is to undergo the proposed procedure below Pre-operative diagnosis: Rectal abscess Operation proposed: Rectal EUA, with possible seton removal VITALS Age: 39 Weight: 248.7 lb [112.81 kg] (11/15/2024 14:17) Height: 74 in [188.0 cm] (11/15/2024:) BMI: 32.0 Blood pressure: 128/86 (11/15/2024 14:17) Pulse: 80 (11/15/2024:) Temperature: 99 F [37.2 C] (11/15/2024:) Respiration: 20 (11/15/2024) SpO2: 97% (11/15/2024) Pain: 4 (11/15/2024:) ALLERGIES Patient has answered NKA MEDICATIONS Inpatient: No medications found. Active Outpatient Medications (including Supplies): Active Outpatient Medications Status 1) ADHESIVE REMOVER WIPE H#6199 USE/APPLY DIRECTED TO ACTIVE AFFECTED AREA(S) USE DIRECTED 2) APPLIANCE DEODORANT SPRAY M-9 SMALL AMOUNT TO AFFECTED ACTIVE AREA(S) NEEDED TO OSTOMY POUCH 3) BARRIER,ADAPT CERARING H#3822 USE BARRIER STOMA TWO TIMES ACTIVE PER WEEK (10 BARRIERS = 30 DAY SUPPLY) Indication: FOR OSTOMY CARE 4) BARRIER,OSTOMY,NEW IMAGE H#80351 USE BARRIER STOMA TWO TIMES ACTIVE PER [...] WITH FOOD. Indication: FOR PAIN 6) PASTE,STOMAHESIVE C#1839-10 APPLY SPARINGLY STOMA USE ACTIVE DIRECTED 7) POUCH,DRAINABLE,NEW IMAGE H#27210 USE POUCH STOMA TWO TIMES ACTIVE PER [...] Indication: FOR LOW TESTOSTERONE 15 Total Medications LABS SODIUM 139 mEq/L 11/15/2024 15:47 POTASSIUM 3.9 mEq/L 11/15/2024 15:47 CHLORIDE 107 mEq/L 11/15/2024 15:47 UREA NITROGEN 11.0 mg/dL 11/15/2024 15:47 CREATININE 1.06 mg/dL 11/15/2024 15:47 CALCIUM 9.2 mg/dL 11/15/2024 15:47 PROTEIN 7.2 g/dL 11/15/2024 15:47 ALBUMIN 4.4 g/dL 11/15/2024 15:47 ALKALINE PHOSPHATASE 92 U/L 11/15/2024 15:47 ALT/SGPT 27 U/L 11/15/2024 15:47 AST/SGOT 24 U/L 11/15/2024 15:47 TOTAL BILIRUBIN 0.3 mg/dL 11/15/2024 15:47 CARBON DIOXIDE 24 mEq/L 11/15/2024 15:47 GLUCOSE 89 mg/dL 11/15/2024 15:47 EGFR (CKD-EPI 2020) 90.4 11/15/2024 15:47 WBC 8.0 10*3/uL 11/15/2024 15:47 RBC 4.99 10*6/uL 11/15/2024 15:47 HGB 15.7 g/dL 11/15/2024 15:47 HCT 45.8 % 11/15/2024 15:47 MCV 91.8 fL 11/15/2024 15:47 MCH 31.5 pg 11/15/2024 15:47 MCHC 34.3 g/dL 11/15/2024 15:47 RDW 12.4 % 11/15/2024 15:47 PLT 231 10*3/uL 11/15/2024 15:47 MPV 10.4 fL 11/15/2024 15:47 NEUTROPHILS, AUTO % 71 % 11/15/2024 15:47 LYMPHOCYTES, AUTO % 22 % 11/15/2024 15:47 MONOCYTES, AUTO % 6 % 11/15/2024 15:47 EOSINOPHILS, AUTO % 1 % 11/15/2024 15:47 BASOPHILS, AUTO % 0 % 11/15/2024 15:47 NEUTROPHILS, ABSOLUTE 5.66 10*3/uL 11/15/2024 15:47 LYMPHOCYTES, ABSOLUTE 1.76 10*3/uL 11/15/2024 15:47 MONOCYTES, ABSOLUTE 0.49 10*3/uL 11/15/2024 15:47 EOSINOPHILS, ABSOLUTE 0.06 10*3/uL 11/15/2024 15:47 BASOPHILS, ABSOLUTE 0.02 10*3/uL 11/15/2024 15:47 NEUTROPHILS 81.0 % 10/08/2023 20:00 LYMPHOCYTES 5.2 % 10/08/2023 20:00 MONOCYTES 11.2 % 10/08/2023 20:00 EOSINOPHILS 1.7 % 10/08/2023 20:00 METAMYELOCYTES 0.9 % 10/08/2023 20:00 POIKILOCYTOSIS 1+ 10/08/2023 20:00 No INR EO data found No PTT EO data found HGA1C 5.6 % 09/29/2023 12:45 URINE COLOR Colorless 12/12/2023 09:36 APPEARANCE Clear 12/12/2023 09:36 U.PH 6.0 12/12/2023 09:36 U.BILIRUBIN Negative mg/dL 12/12/2023 09:36 U.NITRITE Negative mg/dL 12/12/2023 09:36 URINE RBC/HPF 2 /HPF 12/12/2023 09:36 URINE WBC/HPF 1 /HPF 12/12/2023 09:36 SQUAMOUS EPITH. <1 /HPF 12/12/2023 09:36 MUCUS RARE /LPF 12/12/2023 09:36 CA OXYLATE CRYSTALS OCC /HPF 10/16/2023 07:30 No URINE DRUG SCREEN EO data found No TEST LAST ONE EO data found No HIV SCREENING EO data found [facility] Hep C tests in last five years. HEP C Ab HCV Ab (STL) Nonreactive S/CO (09/29/23 12:45) DIAGNOSTICS CXR: Impression for CHEST X-RAY, 2 VIEWS, 08/25/21, case 85 No active disease. PFT: No Pulmonary Function Test for this patient. EKG: No data available for: EKG CONSULT STL EKG CONSULTS PB EKG RESULTS MA Echocardiogram: PROGRESS NOTES SELECTED No data available for: ECHOCARDIOGRAPHIC RESULTS MA ECHOCARDIOGRAPHY CONSULT STL ECHO COMPLETED CONSULT STL TRANSESOPHAGEAL ECHOCARDIOGRAM CONSULT RESULTS ([place]) MA TRANSESOPHAGEAL ECHOCARDIOGRAM ([place]) CONSULT REPORT IMAGING IMPRESSION SELECTED No data available for: US ECHOCARDIOGRAPHY, TRANSTHORACIC US DOPPLER ECHOCARDIOGARPHY COLOR FLOW MAPPING -PB ONLY US DOPPLER ECHOCARDIOGRAPHY-PB ONLY US ECHOCARDIOGRAPHY, TRANSTHORACIC-PB ONLY CARDIOLOGY ECHOCARDIOGRAM No Data Available Stress test: No Stress Test Data available PROBLEM LIST 1) Knee: arthralgia * (ICD-9-CM 719.46) 2) Degeneration of lumbar intervertebral disc 3) Posttraumatic stress disorder 4) Tobacco use 5) Hyperlipidemia 6) Bilateral carpal tunnel syndrome 7) Ulnar nerve entrapment at right elbow 8) Peripheral neuropathy 9) Sleep apnea 10) Hemorrhoid 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 for: - Recent or current SOB + Sleep apnea-uses CPAP - Asthma - COPD CARDIAC ? for: - Recent chest pain - Hypertension + Hyperlipidemia - Myocardial infarction - Coronary artery disease - Heart failure - Valvular disease - Atrial fibrillation/flutter - orthopnea - syncope PSYCH/CENTRAL NERVOUS ? for: + Migraines + Depression - Anxiety + Post-traumatic stress disorder - Cerebral vascular accident - Seizures ENDOCRINE ? for: - Diabetes - Hypothyroid RENAL ? for: - Chronic kidney disease - Nephrolithiasis GI ? for: + GERD-controlled w/OTC meds + Anal fissure/perirectal abscess w/hx multiple EUAs + Hemorrhoids - Liver disease - GI bleed VASCULAR/HEMATOLOGY/ONCOLOGY ? for: - Anemia - Thrombocytopenia - Bleeding disorders MUSCULOSKELETAL/SKIN/PERIPHE RAL NERVOUS ? for: - Obesity + Arthritis/Degenerative joint disease - Rheumatoid arthritis + Neuropathy /REPRODUCTIVE ? for: - Prostate hypertrophy HABITS Alcohol: none recently Smoking: vapes Other drugs: vapes MJ SURGICAL HISTORY Reviewed Previous anesthesia complications: None Family history of anesthesia complications: None PHYSICAL EXAM Alert & oriented x3 Heart: Regular rate, Regular rhythm Lungs: Clear to auscultation bilaterally AIRWAY Mallampati Class: 2 Neck: Full range of motion, no pain on flexion/extension. Normal thyromental distance. Teeth: Top retainer, some missing teeth on top on the right, otherwise intact ASA CLASS 3. A patient with severe systemic disease. ANESTHETIC PLAN Monitored Anesthesia Care (MAC), General as backup Planned anesthetic technique and options were discussed with the patient or guardian including risks, benefits, and potential complications. Consented for all modalities of wil-operative pain management. PRE-INDUCTION REASSESSMENT NPO status appropriate: Yes /elvis/ HUONG CHILDRESS MD ANESTHESIOLOGY/CRITICAL CARE MEDICINE Signed: 01/09/2025 09:41 Receipt Acknowledged By: 01/09/2025 09:42 /es/ ENEDINA PALUMBO, AUTOMOTIVE MECHANICAL ENGINEER AUTOMOTIVE MECHANICAL ENGINEER, Anesthesiology CARLOS CHILDRESS [facility]
--- OUTSIDE RECORDS SUMMARY | 2025-01-27 15:27 | XMS_ITS | Clinical Summary ---
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 Gender Identity Not on file Sexual Orientation Not on file Plan of Treatment Health Maintenance Due Date Last Done Comments Hepatitis C Virus (HCV) Screening 1983 Hepatitis B Immunization (1 of 3 - 19+ 3-dose series) 2002 Influenza Immunization (#1) 2024 SARS-COV-2 Immunization ( - 2023- season) 2024 Respiratory Syncytial Virus (RSV) Immunization (Adult) (1 - 1-dose 75+ series) 2058 DTaP/Tdap/Td Immunization Discontinued 03/17/2017 TdaP Immunization Completed 03/17/2017 Meningococcal Immunization (ACWY) Aged Out No longer eligible based on patient's age to complete this topic Pneumococcal Immunization Combined Aged Out No longer eligible b ased on patient's age to complete this topic Rotavirus Immunization Aged Out No lo nger eligible based on patient's age to complete this topic
--- OUTSIDE RECORDS SUMMARY | 2025-01-27 15:28 | XMS_ITS | Encounter Summary ---
Author Name [facility] [place] [facility] [place] [facility] [place] Address [address], [place] [address] Care Team Providers Care Bilingual Sales Assistant Name Role Phone MITCHEL ROSEN Primary Care [...] PRESCRIPT ION UHEAL TH Dec 25, 2019 [facility] [id number] [phone] RA ANGELA ESQUIVEL PATIENT [facility] MENTAL HEALTH REPUB LIC SERVI KATI Aug 26, 2019 [id number] [phone] RA ANGELA ESQUIVEL PATIENT [facility] PREFERRED PROVIDER ORGANIZAT ION (PPO) REPUB LIC [employer] Aug 26, 2019 [id number] RA ANGELA ESQUIVEL PATIENT Selected Encounter This section includes the information on record at [place] for the Encounter. Date/Time Encounter Type Encounter Description Reason Provider Source Jan 09, 2025 10:45 AM Outpatient Encounter ADMIN PAT ACTIVTIES (MASNONCT) ERON PALAFOX Encounter Template Text not used by [place] Plan of Treatment: Future Appointments (+ 6 months) and Future Tests (+/- 45 days) The Plan of Treatment section includes future care activities for the patient [facility] [place] [facility] This section includes future appointments and future orders which are active, pending or scheduled. Future Appointments This section includes appointments that were scheduled to occur 6 months from the date of the Encounter, up to a maximum of 20 appointments. The data comes from all [facility]. Appointment Date/Time Appointment Type Appointme nt Facility Name Feb 05, 2025 02:30 PM AMBULATORY - MEDICINE [facility] Feb 14, 2025 02:00 PM AMBULATORY - SURGERY [facility] Active, Pending, and Scheduled Orders This section includes a listing of several types of active, pending, and scheduled orders, including clinic medications orders, diagnostic test orders, procedure orders and consult orders; where the start date of the order is 45 days before the date of the Encounter or 45 days after the date of theEncounter. The data comes from all [facility]. Test Date/Time Test Type Test Details Facility Name Jan 09, 2025 12:00 AM Laboratory - Blood Bank Order TYPE & SCREEN - LAB BLOOD SP [facility] Jan 09, 2025 10:41 AM Pharmacy - Clinic Medication Order [facility] Vital Signs: All taken on the encounter date This section contains inpatient and outpatient Vital Signs collected on the date of the Encounter. Date/Time Temperature Pulse Blood Pressure Respiratory Rate SP02 Pain Height Weight Body Mass Index Source Jan 09, 2025 11:00 AM 97.9 F 63 /min 116/59 mm[Hg] 18 /min 99 % 0 [facility] Jan 09, 2025 08:45 AM 97.9 F 63 /min 127/89 mm[Hg] 16 /min 99 % 0 74 in 235 lb 30 [facility] Social History: Smoking Status (Most current) and Tobacco Use (All prior to encounter date) This section includes the most current, and the historical, smoking and tobacco- related health factors from the [place] facility where the Encounter took place. Current Smoking Status This section includes the most current smoking, or tobacco-related health factor, from the [place] facility where the Encounter took place. Date/Time Current Smoking Status Comment Facil ity Jul 22, 2023 10:43 AM VA-TOBACCO FORMER USER [facility] Tobacco Use History This section includes a history of the smoking, or tobacco-related health factors, that were collected on or before the date of the Encounter. The data comes from the [place] facility where the Encounter took place. 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 Date/Time Encounter Note(s) Provider Source Jan 09, 2025 10:45 AM ANESTHESIOLOGY BENJAMIN WSHEET: LOCAL TITLE: PACU POST-OP FLOWSHEET ST STANDARD TITLE: ANESTHESIOLOGY FLOWSHEET DATE OF NOTE: JAN 09, 2025@10:45 ENTRY DATE: JAN 09, 2025@10:45:32 AUTHOR: ERON PALAFOX COSIGNER: URGENCY: STATUS: COMPLETED Patient: MARY ESQUIVEL SSN: [id number] Anesthesia Method: Monitored 01/09/2025 9:54 (Primary), Level Of Consciousness: Sedated, Monitors Applied, Oxygen Therapy: Mask, EtCO2 Verified: Waveform Positioning: Head Neutral, Head And Neck In Alignment With Spine, Pressure Points Padded & Checked, Eyes, Ears And Nose Free Of Pressure, Other Pressure Points (describe): Adjunct Devices: Oral Airway ASA Number: 3 Procedure: RECTAL EXAM UNDER ANESTHESIA REMOVAL ANAL SETON OTH MRK Diagnosis: RECTAL ABSCESS PACU Drugs: PACU Fluids: Anesthesia Procedure: ---- Procedure 01/09/2025 9:24 Line Number: 1, Level Of Consciousness: Awake, Site: Arm, Laterality: Right, Catheter Type: Angio, Catheter Size: 20 Ga, Inserted By: Holding Nurse Procedure 01/09/2025 10:03 In Situ, Line Number: 1, Site: Hand, Laterality: Right, Catheter Type: Angio, Catheter Size: 20 Ga Securement: Sterile Occlusive Dressing Date of Operation: 01/09/2025 Anesthesia Care End: 01/09/2025 10:26 Resources: Aquacel foam placed on ricardo prominence to protect skin during surgery Staff: --------- JOVANNY CARTER, SURGEON JOVANNY CARTER, ATT. SURGEON SHU GREENBERG, Holding Nurse ERICKA SCHMITT PRIN. ANES. ADEBAYO-ADONIS, OLUWAFUNMILAYO, ANES. SUPER. ERON PALAFOX, Post-Op Nurse Surgery Start Time: 01/09/2025 10:06 Procedure End Time: Moderate Sedation Care End: /es/ Eron Palafox RN REGISTERED NURSE Signed: 01/09/2025 10:45 ERON PALAFOX [facility]
--- OUTSIDE RECORDS SUMMARY | 2025-01-27 15:28 | XMS_ITS ---
Author Name [facility] Organization [facility] Address [address], [place] [address] Care Team Providers Care National Opelint Analyst Name Role Phone MITCHEL ROSEN Primary Care [...] PRESCRIPT ION UHEAL TH Dec 25, 2019 [facility] [id number] RA ANGELA ESQUIVEL PATIENT [facility] MENT[facility] HE[facility] REPUB LIC SERVI KATI Aug 26, 2019 [id number] [phone] RA ANGELA ESQUIVEL PATIENT [facility] PREFERRED PROVIDER ORGANIZAT ION (PPO) REPUB LIC [employer] Aug 26, 2019 [id number] [phone] RA ANGELA ESQUIVEL PATIENT Selected Encounter This section includes the information on record at MD for the Encounter. 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 Date/Time Primary/Secondary Diagnosis Diagnosis Name Provider Source May 29, 2024 01:37 PM PRIMARY Chronic anal fissure CHRISTIANO DONAHUE [facility] May 29, 2024 01:37 PM SECONDARY Cellulitis of left external ear CHRISTIANO DONAHUE [facility] May 29, 2024 01:37 PM SECONDARY Dysphagia, pharyngoesophageal phase MERY ANDERSON [facility] Plan of Treatment: Future Appointments (+ 6 months) and Future Tests (+/- 45 days) The Plan of Treatment section includes future care activities for the patient [facility] This section includes future appointments and future orders which are active, pending or scheduled. Future Appointments This section includes appointments that were scheduled to occur 6 months from the date of the Encounter, up to a maximum of 20 appointments. The data comes from all MD treatment facilities. Appointment Date/Time Appointment Type Appointme nt Facility Name May 23, 2024 01:30 PM AMBULATORY - NONE [facility] May 31, 2024 02:00 PM AMBULATORY - SURGERY [facility] Jul 31, 2024 03:00 PM AMBULATORY - MEDICINE [facility] Aug 22, 2024 08:15 AM AMBULATORY - MEDICINE [facility] Aug 23, 2024 01:30 PM AMBULATORY - SURGERY [facility] Aug 31, 2024 02:00 PM AMBULATORY - MEDICINE [facility] Sep 26, 2024 03:00 PM AMBULATORY - MEDICINE [facility] Oct 09, 2024 09:00 AM AMBULATORY - MEDICINE [facility] Oct 16, 2024 03:30 PM AMBULATORY - NONE [facility] Nov 15, 2024 02:00 PM AMBULATORY - SURGERY [facility] Lab Results: +/- 30 days of the encounter This section includes the Chemistry and Hematology Lab Results on record with MD for the patient. Radiology Reports and Pathology Reports are provided separately, in subsequent sections. Lab Results This section contains the Chemistry/Hematology Results that were resulted 30 days before or 30 daysafter the date of the Encounter. Date/Time Source Result Type Result - Unit Interpretation Reference Range Specimen Type Comment May 23, 2024 02:17 PM [facility] I-STAT, CREAT (STL-MA) BLOOD Specimen Type: BLOOD Comment: Test Performed by: [id number] Meter #: [id number] Ordering Provider: MITCHEL ROSEN Report Released Date/Time: May 23, 2024 02:43 PM Reporting Lab: [facility] [address] [facility] [facility] [id number] Performing Lab: [address] [address] I-STAT, CREAT (STL-MA) 1.0 mg/dL 0.7-1.3 Social History: Smoking Status (Most current) and Tobacco Use (All prior to encounter date) This section includes the most current, and the historical, smoking and tobacco- related health factors from the MD facility where the Encounter took place. Current Smoking Status This section includes the most current smoking, or tobacco-related health factor, from the MD facility where the Encounter took place. Date/Time Current Smoking Status Comment Rosie ity Jul 22, 2023 10:43 AM VA-TOBACCO FORMER USER [facility] Tobacco Use History This section includes a history of the smoking, or tobacco-related health factors, that were collected on or before the date of the Encounter. The data comes from the MD facility where the Encounter took place. Date/Time Smoking Status/Tobacco Use Comment F acility Jul 22, 2023 10:43 AM VA-TOBACCO QUIT 1 TO < 5 YRS [facility] Jul 22, 2022 01:24 PM VA-TOBACCO FORMER USER [facility] Jul 22, 2022 01:24 PM VA-TOBACCO QUIT 1 TO < 5 YRS [facility] Sep 10, 2020 02:44 PM VA-TOBACCO DOESNT USE WI 30 MIN WAKEUP [facility] Sep 10, 2020 02:44 PM VA-TOBACCO USE > 1 5 LESS THAN 30 YEARS [facility] Sep 10, 2020 02:44 PM VA-TOBACCO USE ADVICE [facility] Sep 10, 2020 02:44 PM VA-TOBACCO USE SERVICE ESTABLISHMENT 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 The data comes from all MD treatment facilities. Date/Time Radiology Report Provider Source May 23, 2024 01:[address] PELVIS W/CONT: PETERKIKOMARY DIDIER [id number] M Exm Date: MAY 23, 2024@13:44 Req Phys: TRAVIS BIRD Loc: [facility] Img Loc: [facility] IMAGING Service: [address] [address] (Case [id number] COMPLETE) CT PELVIS W/CONT (CT Detailed) CPT:10777 Contrast Media : Non-ionic Iodinated Reason for Study: follow up anal fisutlas Clinical History: Responsible Attending: Dr. Destiny Liang Attending Contact Number: [phone] Resident Contact Number: [phone] pelvis to follow up to [...] 23, 2024 Date Verified: MAY 23, 2024 Senior Contracts Administrator E-Sig:/ES/Pirya Guadalupe MD Report: CASE #: [id number] DATE:05/23/2024 4:08 PM CLINICAL HISTORY:follow up anal [...] Primary Interpreting Staff: Priya Guadalupe MD, Radiologist (Lisa) /PRIYA BRIGHT [facility] Encounter Notes: All associated encounter notes This section contains the clinical notes associated to the Encounter. Date/Time Encounter Note(s) Provider Source Aug 18, 2024 05:05 PM GASTROENTEROLOGY TELEPHONE ENCOUNTER NOTE: LOCAL TITLE: [facility] GASTROENTEROLOGY TELEPHONE NOTE [facility] STANDARD TITLE: GASTROENTEROLOGY TELEPHONE ENCOUNTER NOTE DATE OF NOTE: AUG 18, 2024@17:05 ENTRY DATE: AUG 18, 2024@17:05:11 AUTHOR: IMMANUEL GRAMAJO COSIGNER: URGENCY: STATUS: COMPLETED Pre-Procedure Telephone Discussion GI PREP LINE: ext [phone] Procedure(s) Planned procedure: Esophagogastroduodenoscopy (EGD), Colonoscopy Scheduled date for procedure: Jul@08:15 Planned procedure was discussed with the patient Patient Instructions Nothing by mouth (NPO), including gum, mints or hard candy after 0000. Clear liquids only one day before your procedure. Detailed list of clear liquids reviewed. Medications to be taken with a sip of water before arrival blood pressure medication, heart medication, thyroid medication. Bowel preparation Dulcolax (Bisacodyl), Simethicone, GoLYTELY . Start first half of prep at 7:00pm, and take the remaining half of prep at 0200, to be finished by 0400. Patient was instructed that their over the road driver must arrive with the patient and stay or the procedure will be cancelled. Patient verbalizes understanding of all information discussed. /elvis/ IMMANUEL TERRAZAS RN REGISTERED NURSE Signed: 08/18/2024 17:06 IMMANUEL GRAMAJO [facility] May 22, 2024 08:31 AM ADMINISTRATIVE NOTE: LOCAL TITLE: SCHEDULING NOTE [facility] STANDARD TITLE: ADMINISTRATIVE NOTE DATE OF NOTE: MAY 22, 2024@08:31 ENTRY DATE: MAY 22, 2024@08:31:05 AUTHOR: MILLICENT HARRELL COSIGNER: URGENCY: STATUS: COMPLETED Pre-procedure Nursing Scheduling/Education: Planned procedure: Esophagogastroduodenoscopy (EGD), Colonoscopy Procedure scheduled on: Jul Planned procedure was discussed with . Patient Instructions: 7 days before your colonoscopy stop eating corn, popcorn, nuts, and seeds. Clear liquids ONLY the day prior to colonoscopy. NO solid food. Handout provided. Bowel preparation: Dulcolax (Bisacodyl), Simethicone, GoLYTELY -split dose. Take four of the provided simethicone tablets and begin drinking your bowel preparation @ 1800, consume half of the solution. You may continue with clear liquids up until midnight. Six (6) hours before your appointment time take the remaining simethicone tablets and finish drinking the laxative solution. Medication(s) to be taken with sip of water: Blood pressure and heart medications. NO liquids for 4 hours prior to your appointment. Plumbing Assembler Installer must accompany you to the GI lab day on the day of your procedure. The over the road driver must stay on site for the length of the appointment. You may NOT be dropped off. Patient verbalizes understanding of all information discussed. Copy of instructions and overview to consent given to patient. Reviewed using Jodi to assist with procedure preparation with who declined use at this time /elvis/ NINI Hutton, RN GI Signed: 05/22/2024 08:31 MILLICENT HARRELL [facility] May 22, 2024 07:54 AM GASTROENTEROLOGY OUTPATIENT NOTE: LOCAL TITLE: GASTROENTEROLOGY OUTPATIENT FOLLOW UP [facility] STANDARD TITLE: GASTROENTEROLOGY OUTPATIENT NOTE DATE OF NOTE: MAY 22, 2024@07:54 ENTRY DATE: MAY 22, 2024@07:54:38 AUTHOR: IZABELLA DONAHUE COSIGNER: MERY ANDERSON URGENCY: STATUS: COMPLETED GASTROENTEROLOGY OUTPATIENT FOLLOW UP [facility] Has ADDENDA Mary Esquivel is a 38-year-old with PMHx JESUS on CPAP, migraines, tobacco [...] healing perianal abscesses, presenting for follow up. Pain is much improved since colostomy. Still has rectal pain but used to be very severe during defecation. Still having rectal drainage, says pretty constant. No bloody output in his colostomy. No GERD, bloating, nausea, vomiting. He does have dysphagia occasionally (especially with bread). Localizes to the anterior neck. Sometimes he has to regurgitate. Worse with eating fast. Happens less than monthly now. SH: vape and occasional cigarettes, occasional alcohol but doesn't binge, no recreational drugs. Works in equipment maintenance. FH: half brother has Crohns (but its from their non-mutual parent's side). ROS: Review of systems is as per HPI and additionally notable for Constitutional: No fever, No weakness/ fatigue Cardiovascular: No chest pain, No palpitations Respiratory: No shortness of breath, No cough Genitourinary: No dysuria, No polyuria Neurology: No headache, No tremors Musculoskeletal: No joint pain, No back pain Skin: No rash, No itching Psychiatric: No anxiety, No depression 10-point ROS is otherwise negative. SMOKING- ALCOHOL- MEDICATIONS: reviewed and pertinent for Active Outpatient Medications (excluding Supplies): Issue Date Status Last Fill Active Outpatient Medications Refills Expiration === 1) MAGNESIUM CITRATE LIQUID Qty: 1 for 30 ACTIVE Issu:10-10-23 days Sig: TAKE ONE-HALF BOTTLE BY Refills: 2 Last:10-10-23 MOUTH ONCE A DAY NEEDED FOR BOWEL Expr:10-10-24 EMPTYING IF NO BOWEL MOVEMENTS 2) PSYLLIUM ORAL PWD Qty: 390 for 30 days ACTIVE Issu:10-10-23 Sig: MIX AND DRINK 1 TABLESPOONFUL BY Refills: 2 Last:10-10-23 MOUTH ONCE A DAY FOR FIBER Expr:10-10-24 SUPPLEMENTATION MIX IN GLASS OF WATER/JUICE. FLAVOR SUBSTITUTIONS MAY/WILL OCCUR AND SPECIFIC VARIETIES WILL NOT BE PROVIDED. 3) SERTRALINE HCL 50MG TAB Qty: 90 for 90 ACTIVE Issu:03-07-24 days Sig: TAKE ONE TABLET BY MOUTH Refills: 3 Last:03-29-24 EVERY MORNING FOR DEPRESSION Expr:03-08-25 Start Date Active Non-VA Medications Refills Expiration === 1) Non-VA CHOLECALCIF 50MCG (D3-2,000UNIT) ACTIVE TAB SiUNIT BY MOUTH ONCE A DAY 2) Non-VA FISH OIL 1000MG (500MG DHA/EPA) ACTIVE CAP SiMG BY MOUTH ONCE A DAY 3) Non-VA TESTOSTERONE CYP 200MG/ML 1ML ACTIVE IN OIL SiMG/0.5ML DEEP INTRAMUSCULARLY TWO TIMES PER WEEK 6 Total Medications Vitals: 98.2 F [36.8 C] (05/03/2024 14:01)76 (05/03/2024 14:01)105/74 (05/03/2024 14:01)18 (05/03/2024 14:01) Measurement DT POx (L/MIN)(%) 05/03/2024 14:01 98 03/22/2024 14:32 98 01/20/2024 08:52 96 01/08/2024 08:54 97 General-NAD, well-nourished HEENT-mucous membranes moist and without lesion or exudate, no scleral icterus CV-normal rate Lung-nonlabored Abd-ostomy bag left abdomen Skin-no rash or jaundice INTERVAL TESTS: LABS: Hgb HGB 13.7 g/dL 01/07/2024 20:00 Hct 40.5 % (01/07/24 20:00) MCV 94.0 fL (01/07/24 20:00) Plt PLT 272 10*3/uL 01/07/2024 20:00 Iron, TIBC No IRON & TIBC EO data found Jeffrey No FERRITIN EO data found BUN 10.1 mg/dL (01/07/24 20:00) Cr CREATININE 0.89 mg/dL 01/07/2024 20:00 Alb ALBUMIN 4.0 g/dL 01/04/2024 23:50 ALBUMIN (PB-sendout) 4.5 g/dL 09/29/2023 12:45 Ca 9.3 mg/dL (01/07/24 20:00) TSH TSH 1.488 uIU/mL 09/29/2023 12:45 Vit D VITAMIN D, 25-HYDROXY 41.0 ng/mL 09/29/2023 12:45 ALT 27 U/L (01/04/24 23:50) AST 14 U/L (01/04/24 23:50) TB TOTAL BILIRUBIN 0.6 mg/dL 01/04/2024 23:50 AP ALKALINE PHOSPHATASE 67 U/L 01/04/2024 23:50 INR No INR EO data found 0 No COHN Ab (IgG) (STL) data found HEP HB S AG (AUSRIA) STL-MA No data available for: HEP HB S Ag (AUSRIA) (STL) No HEP B Surface Ab-HBsAB (AUSAB) (STL-MA) data found HEP C Ab HCV Ab (STL) Nonreactive S/CO 09/29/2023 12:45 HEP C Ab HCV Ab (STL) Nonreactive S/CO 09/29/2023 12:45 IMAGING: Impression for CT ABDOMEN AND PELVIS W/CONTRAST, 10/27/23, case 1992 Decreased size of perirectal abscess status post drain placement. No Impressions found No Impressions found IMP: Anal fissure biopsy 08/18/2022 ANAL BIOPSY: -- POLYPOID COLONIC MUCOSA WITH HYPERPLASTIC CHANGES -- NO EVIDENCE OF SIGNIFICANT INFLAMMATION OR DYSPLASIA 38 y/o male with recent rectal abscess and current violetta placement. #Rectal Abscess Saw GI in 2020 for hemorrhoids and was not improving on medical therapy. Referred to Colorectal team and now: s/p L lateral and R posteriolateral excision hemorrhoidectomy (Jul 2021) EUA w/ biopsy and fulguration of small ulcer (Jul 2022) EUA w/ botox injection and cauterization of granulation tissue (01/04/23) FH of CD In half-brother (but assumed to be inherited from non-mutual parent) #Dysphagia: oropharyngeal vs esophageal. If esophageal likely ring or EOE. REC: --EGD and Colonoscopy ordered. EGD with esophageal biopsies to evaluate dysphagia. Colonoscopy per rectum and per colostomy to r/o IBD (especially CD). --IF EGD negative for source of dysphagia needs MBS --Counseled against tobacco use --MRI pelvis tomorrow as previously scheduled --Follow up with surgery Discussed with Dr. Anderson Benefits, risks, and alternative tests described to patient and he/she agrees to proceed. The patient was instructed to call the GI lab on the 6th floor of [facility] at [phone] or [phone] if questions or concerns arise. 05/22/2024 08:00 [facility] 05/23/2024 13:30 [facility]-MRI1.5PM 05/31/2024 14:00 [facility] 07/31/2024 15:00 [facility]ST CLR PACT 7 PCP Medication list was reviewed with the patient or care-care giver, any discrepancies were resolved and the patient was given an updated list. The patient was provided written information with my name, contact phone number, fax, GI lab number and email address. Patient was instructed to contact me with issues/questions/concerns. Written instructions with plans for meds/lab/imaging/procedures was provided to ensure compliance with the above stated plan. /elvis/ IZABELLA DONAHUE MD Gastroenterology and Hepatology Fellow Signed: 05/22/2024 08:26 /elvis/ MERY ANDERSON M.D., [facility] Staff Physician - Gastroenterology Cosigned: 05/22/2024 08:29 05/22/2024 ADDENDUM STATUS: COMPLETED I reviewed this patient in person with the GI fellow and have reviewed the pertinent records & laboratory data. I agree with the note including A&P which were formulated together. /elvis/ MREY ANDERSON M.D., [facility] Staff Physician - Gastroenterology Signed: 05/22/2024 08:30 EMILY DONAHUE [facility]
--- OUTSIDE RECORDS SUMMARY | 2025-01-27 15:28 | XMS_ITS | Encounter Summary ---
Author Name [facility] Organization [facility] Address [address], [place] [address] Care Team Providers Care Structural Designer Name Role Phone SHARMIN ROSEN Primary Care [...] PRESCRIPT ION UHEAL TH Dec 25, 2019 [facility] [id number] [phone] RA ANGELA ESQUIVEL PATIENT [facility] MENT[facility] REPUB LIC SERVI KATI Aug 26, 2019 [id number] [phone] RA ANGELA ESQUIVEL PATIENT [facility] PREFERRED PROVIDER ORGANIZAT ION (PPO) REPUB LIC [employer] Aug 26, 2019 [id number] [phone] RA ANGELA ESQUIVEL PATIENT Selected Encounter This section includes the information on record at MD for the Encounter. 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 Date/Time Primary/Secondary Diagnosis Diagnosis Name Provider Source Oct 09, 2024 02:57 PM PRIMARY Chronic anal fissure MERY ALAN [facility] Oct 09, 2024 02:57 PM SECONDARY Cellulitis of left external ear MERY ALAN [facility] Oct 09, 2024 02:57 PM SECONDARY Dysphagia, oropharyngeal phase MERY ALAN [facility] Oct 09, 2024 02:57 PM SECONDARY Horseshoe abscess MERY ALAN [facility] Oct 09, 2024 02:57 PM SECONDARY Unspecified hemorrhoids MERY ALAN [facility] Plan of Treatment: Future Appointments (+ 6 months) and Future Tests (+/- 45 days) The Plan of Treatment section includes future care activities for the patient from all [facility] treatmentfacity hospital. This section includes future appointments and future orders which are active, pending or scheduled. Future Appointments This section includes appointments that were scheduled to occur 6 months from the date of the Encounter, up to a maximum of 20 appointments. The data comes from all MD treatment facilities. Appointment Date/Time Appointment Type Appointme nt Facility Name Oct 16, 2024 03:30 PM AMBULATORY - NONE [facility] Nov 15, 2024 02:00 PM AMBULATORY - SURGERY [facility] Jan 09, 2025 08:30 AM AMBULATORY - NONE [facility] Feb 05, 2025 02:30 PM AMBULATORY - MEDICINE [facility] Feb 14, 2025 02:00 PM AMBULATORY - SURGERY [facility] Vital Signs: All taken on the encounter date This section contains inpatient and outpatient Vital Signs collected on the date of the Encounter. Date/Time Temperature Pulse Blood Pressure Respiratory Rate SP02 Pain Height Weight Body Mass Index Source Oct 09, 2024 09:44 AM 96.8 69 117/74 16 97 0 242.5 31 [facility] Social History: Smoking Status (Most [...] VA-TOBACCO QUIT 1 TO < 5 YRS [facility] Tobacco Use History This section includes a history of the smoking, or tobacco-related health factors, that were collected on or before the date of the Encounter. The data comes from the MD facility where the Encounter took place. 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 Date/Time Radiology Report Provider Source Oct 16, 2024 03:[address] CERVICAL SPINE W/O CONT: MARY ESQUIVEL [id number] -[id number] M Exm Date: OCT 16, 2024@15:15 Req Phys: SHARMIN ROSEN Loc: [facility] CLR PACT PHONE 7 PCP (Re Img Loc: [facility]AGING [facility] Service: Unknown [facility], [address] [place] [address] (Case [id number] COMPLETE) CT CERVICAL SPINE W/O CONT (CT Detailed) CPT:52689 Reason for Study: cervical radiculopathy Clinical History: Responsible Attending: Sharmin Rosen Attending Contact Number: Cory Resident Contact Number: 39yo male with bilateral hand tingling/numbness with EMG showing bilateral cervical polyradiculopathy. Not able to have MRI due to metal fragment in chest. Allergies listed in CPRS chart: Patient has answered NKA Creatinine/eGFR: STL EGFR (within one year). CREATININE 0.89 mg/dL (01/07/24 20:00) Wt: 240.7 lb [109.18 kg] (08/23/2024 13:01) History of: Renal failure, chronic or acute renal disease: NO Report Status: Verified Date Reported: OCT 16, 2024 Date Verified: OCT 16, 2024 Radio Mechanic E-Sig:/ES/Reema Cruz MD. FACR. Report: History: cervical radiculopathy. Comparison: Radiographic examination of cervical spine-10/09/2024. Technique: Helical multidetector axial slices through the cervical spine without intravenous contrast according to center protocol. From the original axial data, sagittal and coronal reconstructions were performed. Findings: Schmorl's node formation is observed at C3-4. Posterior disc space narrowing and spurring is present at C4-5. The C6 and C7 levels are partially obscured by beam hardening artifact presumably from the shoulders. No gross fracture or dislocation is seen. On sagittal soft tissue reconstructions, disc protrusions are suspected at C3-4 and C4-5. Axial slices demonstrate central disc protrusion at C3-4 without lateralization. Broad-based disc protrusion without lateralization is identified at C4-5. These C5-6 and C6-7 interspaces cannot be accurately evaluated from this study. For better evaluation, MR cervical spine is recommended unless contraindicated. Impression: Disc protrusion suspected at C3-4 and C4-5; greater at C4-5. Primary Interpreting Staff: Reema Cruz MD. FACR, Neuroradiologist (Radio Mechanic) /REEMA PETERSEN [facility] Oct 09, 2024 10:17 AM SPINE CERVICAL 2 OR 3 VIEWS: MARY ESQUIVEL [id number] -[id number] M Exm Date: OCT 09, 2024@10:17 Req Phys: SHARMIN ROSEN Loc: [facility] PACT 7 PCP (Req' Img Loc: -[facility] SUITE Service: [address] [address] (Case [id number] COMPLETE) SPINE CERVICAL 2 OR 3 VIEWS (RAD Detailed) CPT:77132 Reason for Study: bilateral hand numbness, cervical polyradiculopathy on EMG Clinical History: Report Status: Verified Date Reported: OCT 09, 2024 Date Verified: OCT 09, 2024 Radio Mechanic E-Sig:/ES/DYLON COREA MD Report: Case #[id number]. Cervical spine examination. Finding: AP and lateral views of the cervical spine followed by open mouth odontoid views shows normal alignment. No fracture. No evidence of lytic or blastic bony lesion. No evidence of disc space narrowing. No abnormal prevertebral soft tissue swelling. The atlantoaxial alignment is satisfactory. There is a semilunar shaped radiopaque density seen in the left supraclavicular region and no interval change since the previous chest examination dated 08/25/2021. Impression: Normal cervical spine examination. Primary Interpreting Staff: DYLON COREA MD, Staff Physician - Radiologist (Radio Mechanic) /DYLON ALLISON [facility] Encounter Notes: All associated encounter notes This section contains the clinical notes associated to the Encounter. Date/Time Encounter Note(s) Provider Source Oct 09, 2024 09:50 AM GASTROENTEROLOGY OUTPATIENT NOTE: LOCAL TITLE: GASTROENTEROLOGY OUTPATIENT FOLLOW UP [facility] STANDARD TITLE: GASTROENTEROLOGY OUTPATIENT NOTE DATE OF NOTE: OCT 09, 2024@09:50 ENTRY DATE: OCT 09, 2024@09:50:20 AUTHOR: IZABELLA RODRIGUES COSIGNER: MERY ALAN URGENCY: STATUS: COMPLETED Mary Esquivel is a 39-year-old with PMHx JESUS on CPAP, migraines, tobacco [...] healing perianal abscesses, presenting for follow up. Still has dysphagia with anything dry. Happens less frequently now since starting omeprazole. Not taking 100% of the time. NO recent episodes of regurgitation. GERD symptoms dependent on diet. Last week had a lot of rectal drainage and blood. This week no symptoms. Tends to be erratic pattern like this. Has one seton left. Still with colostomy bag. ROS: per HPI Physical Exam: Temperature: 96.8 F [36.0 C] (10/09/2024 09:44) Blood Pressure: 117/74 (10/09/2024 09:44) Pulse: 69 (10/09/2024 09:44) Respirations: 16 (10/09/2024 09:44) O2 Saturation: 97% (10/09/2024 09:44) Weight: 242.5 lb [110.00 kg] (10/09/2024 09:44) Height: 74 in [188.0 cm] (08/23/2024 13:01) General: NAD HEENT: NC, AT, moist oral mucosa Neck: No JVD is appreciated CV: normal rate Lung: nonlabored resp Abdomen: ND Ext: No deformity, no edema Neuro: No focal deficits Psych: Appropriate mood and affect Lab Values: HGB A1C Collection DT Specimen Test Name Result Units Ref Range 09/29/2023 12:45 BLOOD HGA1C 5.6 % 4.0 - 6.0 No COMPREHENSIVE METABOLIC PANEL data found No CBC EO data found Colonoscopy 08/22/24 Impression: - Mild inflammation was found in the ileum, rule out inflammatory bowel disease. Biopsied. - The sigmoid colon, descending colon, transverse colon, ascending colon and cecum are normal. EGD 08/22/24 Impression: - Esophageal mucosal changes suggestive of eosinophilic esophagitis. - Normal stomach. - Normal examined duodenum. - Biopsies were taken with a cold forceps for evaluation of eosinophilic esophagitis. DIAGNOSIS: ESOPHAGUS, DISTAL, BIOPSY (A): -- SQUAMOUS [...] SIGNIFICANT LYMPHOID AGGREGATES AND HYPERPLASIA (SEE COMMENT) ASSESSMENT AND PLAN: #Rectal Abscess Saw GI in 2020 for [...] assumed to be inherited from non-mutual parent) Plan: -follow up with surgery as scheduled. Next cscope for CRC screening in 10 years. If needed can repeat sooner if indicated by surgery. #EOE, GERD Plan: -was not taking PPI daily. Start daily and follow up on phone in 2 months. If clinically improving plan repeat EGD at that time with biopsies. As above can add on colonoscoyp as well if indicated by surgery #CRC screening Next exam due 2034 Patient seen and discussed with the attending physician. Cody Rodrigues MD GI Fellow /elvis/ IZABELLA RODRIGUES MD Gastroenterology and Hepatology Fellow Signed: 10/09/2024 10:17 /elvis/ MERY ALAN M.D., [facility] Staff Physician - Gastroenterology Cosigned: 10/09/2024 14:58 IZABELLA RODRIGUES [facility]
--- OUTSIDE RECORDS SUMMARY | 2025-01-27 15:28 | XMS_ITS | Encounter Summary ---
Author Name [facility] [place] Address [address] [facility], [place] [address] Care Team Providers Care Air Sealing Technician Name Role Phone MITCHEL ROSEN Primary Care [...] ION UHEAL TH Dec 25, 2019 EAL [id number] RA ANGELA ESQUIVEL PATIENT [facility] MENTAL HEALTH REPUB LIC SERVI KATI Aug 26, 2019 [id number] [phone] RA ANGELA ESQUIVEL PATIENT [facility] PREFERRED PROVIDER ORGANIZAT ION (PPO) REPUB LIC [employer] Aug 26, 2019 [id number] [phone] RA ANGELA ESQUIVEL PATIENT Selected Encounter This section includes the information on record at [place] for the Encounter. Date/Time Encounter Type Encounter Description Reason Provider Source May 03, 2024 02:00 PM OFFICE O/P EST MOD 30 MIN GENERAL SURGERY ICD-10-CM H60.12 Cellulitis of left external ear COLBY LIANG [facility] Encounter Template Text not used by [place] Assessments - Encounter Diagnoses This section includes the primary and secondary diagnoses documented for the Encounter. Date/Time Primary/Secondary Diagnosis Diagnosis Name Provider Source May 14, 2024 09:07 AM PRIMARY Cellulitis of left external ear RAE MILLS [facility] May 14, 2024 09:07 AM SECONDARY Chronic anal fissure RAE MILLS [facility] Plan of Treatment: Future Appointments (+ 6 months) and Future Tests (+/- 45 days) The Plan of Treatment section includes future care activities for the patient from all [place] [facility]. This section includes future appointments and future orders which are active, pending or scheduled. Future Appointments This section includes appointments that were scheduled to occur 6 months from the date of the Encounter, up to a maximum of 20 appointments. The data comes from all [place] treatment facilities. Appointment Date/Time Appointment Type Appointme nt Facility Name May 22, 2024 08:00 AM AMBULATORY - MEDICINE [facility] May 23, 2024 01:30 PM AMBULATORY - NONE [facility] May 31, 2024 02:00 PM AMBULATORY - SURGERY [facility] Jul 31, 2024 03:00 PM AMBULATORY - MEDICINE [facility] Aug 22, 2024 08:15 AM AMBULATORY - MEDICINE [facility] Aug 23, 2024 01:30 PM AMBULATORY - SURGERY [facility] Aug 31, 2024 02:00 PM AMBULATORY - MEDICINE [facility] Sep 26, 2024 03:00 PM AMBULATORY - MEDICINE [facility] Oct 09, 2024 09:00 AM AMBULATORY - MEDICINE [facility] Oct 16, 2024 03:30 PM AMBULATORY - NONE [facility] Lab Results: +/- 30 days of the encounter This section includes the Chemistry and Hematology Lab Results on record with [place] for the patient. Radiology Reports and Pathology Reports are provided separately, in subsequent sections. Lab Results This section contains the Chemistry/Hematology Results that were resulted 30 days before or 30 daysafter the date of the Encounter. Date/Time Source Result Type Result - Unit Interpretation Reference Range Specimen Type Comment May 23, 2024 02:17 PM [facility] I-STAT, CREAT ([facility]) BLOOD Specimen Type: BLOOD Comment: Test Performed by: [id number] Meter #: [id number] Ordering Provider: MITCHEL ROSEN Report Released Date/Time: May 23, 2024 02:43 PM Reporting Lab: [facility] [address] [facility] [address] Performing Lab: [facility] [address] [facility] [address] I-STAT, CREAT ([facility]) 1.0 mg/dL 0.7-1.3 Vital Signs: All taken on the encounter date This section contains inpatient and outpatient Vital Signs collected on the date of the Encounter. Date/Time Temperature Pulse Blood Pressure Respiratory Rate SP02 Pain Height Weight Body Mass Index Source May 03, 2024 02:01 PM 98.2 76 105/74 18 98 4 74 234.8 30 [facility] Social History: Smoking Status (Most current) and Tobacco Use (All prior to encounter date) This section includes the most current, and the historical, smoking and tobacco- related health factors from the [place] facility where the Encounter took place. Current Smoking Status This section includes the most current smoking, or tobacco-related health factor, from the [place] facility where the Encounter took place. Date/Time Current Smoking Status Comment Facil ity Jul 22, 2023 10:43 AM VA-TOBACCO FORMER USER [facility] Tobacco Use History This section includes a history of the smoking, or tobacco-related health factors, that were collected on or before the date of the Encounter. The data comes from the [place] facility where the Encounter took place. Date/Time Smoking Status/Tobacco Use Comment F acility Jul 22, 2023 10:43 AM VA-TOBACCO QUIT 1 TO < 5 YRS [facility] Jul 22, 2022 01:24 PM VA-TOBACCO FORMER USER [facility] Jul 22, 2022 01:24 PM VA-TOBACCO QUIT 1 TO < 5 YRS [facility] Sep 10, 2020 02:44 PM VA-TOBACCO DOESNT USE WI 30 MIN WAKEUP [facility] Sep 10, 2020 02:44 PM VA-TOBACCO USE > 1 5 LESS THAN 30 YEARS [facility] Sep 10, 2020 02:44 PM VA-TOBACCO USE ADVICE [facility] Sep 10, 2020 02:44 PM VA-TOBACCO USE DATA CENTER TECHNICIAN NO [facility] Sep 10, 2020 02:44 PM VA-TOBACCO USE MED NO [facility] Sep 10, 2020 02:44 PM VA-TOBACCO USER SOME DAYS [facility] May 14, 2009 08:49 AM CURRENT TOBACCO USER [facility] Radiology Reports: +/- 30 days of the [...] the Encounter. The data comes from all [place] treatment facilities. Date/Time Radiology Report Provider Source May 23, 2024 01:[address] PELVIS W/CONT: MARY ESQUIVEL [id number] -1985 M Exm Date: MAY 23, 2024@13:44 Req Phys: TRAVIS GRAF Loc: [facility] Img Loc: [facility] Service: [address] [address] (Case [id number] COMPLETE) CT PELVIS W/CONT (CT Detailed) CPT:90463 Contrast Media : Non-ionic Iodinated Reason for Study: follow up anal fisutlas Clinical History: Responsible Attending: Dr. Colby Liang Attending Contact Number: [phone] Resident Contact Number: [phone] pelvis to follow up to [...] 23, 2024 Date Verified: MAY 23, 2024 Hat Brim And Crown Laminating Operator E-Sig:/ES/Priya Guadalupe MD Report: CASE #: [id number] DATE:05/23/2024 4:08 PM CLINICAL HISTORY:follow up anal [...] Priya Guadalupe MD, Radiologist (Lisa) /PRIYA BRIGHT [facility] Encounter Notes: All associated encounter notes This section contains the clinical notes associated to the Encounter. Date/Time Encounter Note(s) Provider Source May 24, 2024 06:36 AM ADDENDUM: LOCAL TITLE: Addendum STANDARD TITLE: ADDENDUM DATE OF NOTE: MAY 24, 2024@06:36:24 ENTRY DATE: MAY 24, 2024@06:36:25 AUTHOR: TRAVIS GRAF EXP COSIGNER: URGENCY: STATUS: COMPLETED Alerting Attending Dr. Colby Liang to CT Pelvis w/ contrast results. Unable to have pelvic MRI due to metal shrapnel in neck: CT PELVIS W/CONT Exm Date: MAY 23, 2024@13:44 Req Phys: TRAVIS GRAF Loc: [facility] Img Loc: [facility] [address] [place] [address] (Case [id number] COMPLETE) CT PELVIS W/CONT (CT Detailed) CPT:24784 Contrast Media : Non-ionic Iodinated Reason for Study: follow up anal fisutlas Clinical History: Responsible Attending: Dr. Colby Liang Attending Contact Number: [phone] Resident Contact Number: [phone] pelvis to follow up to [...] 23, 2024 Date Verified: MAY 23, 2024 [employer] Brim [employer] Crown Laminating Operator E-Sig:/ELVIS/Priya Guadalupe MD Report: CASE #: [id number] DATE:05/23/2024 4:08 PM CLINICAL HISTORY:follow up anal [...] Primary Interpreting Staff: Priya Guadalupe MD, Radiologist (Hat Brim And Crown Laminating Operator) /LYLA /elvis/ Travis Graf PA-C General Surgery Physician Glazing Department Supervisor Signed: 05/24/2024 06:37 Receipt Acknowledged By: 05/24/2024 07:36 /elvis/ COLBY LIANG MD Staff Physician, General Surgery I --- Original Document --- 05/03/24 GENERAL SURGERY NOTE ST[facility]: MAY 03, 2024 Brief HPI: Mary Esquivel is a 38-year-old with PMHx [...] healing perianal abscesses, presenting for follow up. Last seen 03/22/24 and plan was to follow up his abscesses in clinic and obtain MRI to evaluate his fistula tracts and any undrained collections. Interval History: Since last visit he has continued to be bothered by the presence of the setons. Denies any other changes. Still using multiple pads daily and having drainage of varied colors from his abscesses. His main concern is wanting to get the setons removed when possible. O: Temp: 98.2 F [36.8 C] (05/03/2024 14:01) Pulse Ox: Measurement DT POx (L/MIN)(%) 05/03/2024 14:01 98 03/22/2024 14:32 98 01/20/2024 08:52 96 01/08/2024 08:54 97 PULSE: 76 (05/03/2024 14:01) RESPIRATION: 18 (05/03/2024 14:01) BLOOD PRESSURE: 105/74 (05/03/2024 14:01) PHYSICAL EXAM General: in NAD HEENT: NC/AT, EOMI Neuro: CN 3-12 grossly intact, no focal deficits CV: RRR Resp: unlabored respirations on room air Abdomen/Pelvis: soft, non-distended, non-tender. colostomy site without erythema or purulence. Anus: 3 setons visualized on exam and 1 removed during the exam. Left side seton insertion sites with tenderness to palpation. Some drainage is expelled with pressure to the area of insertion of one of the setons. MSK: extremities x4 WWP, non-edematous Psych: appropriate [...] % 10/08/2023 20:00 POIKILOCYTOSIS 1+ 10/08/2023 20:00 DIAGNOSIS: Perianal abscesses s/p drainage and seton placement ASSESSMENT/PLAN: Mary is a 38yo M with PMHx JESUS on CPAP, migraines, tobacco [...] perianal abscesses and discussion of seton removal. - 1 seton removed on exam today - Patient to schedule appointment with GI for colonocsopy - Patient to obtain MRI 05/23/24 - Will follow up results of colonoscopy and MRI to discuss further seton removal and management of perianal abscesses. - Return to clinic in 1 month for follow up /elvis/ RAE MILLS ESE TEACHER Signed: 05/03/2024 14:51 /elvis/ COLBY LIANG MD Staff Physician, General Surgery I Cosigned: 05/03/2024 14:56 05/03/2024 ADDENDUM STATUS: COMPLETED I have seen and examined this patient and have confirmed the resident's findings from above. I have assisted in the formation of this plan as stated above and have made changes as appropriate. I agree with the plan as stated above. Mr. Esquivel is a 38-year-old gentleman well-known to the surgical services. Overall he is doing well but still has significant perianal drainage. On examination there is no evidence of any recurrent abscess. The most distal vessel loop was removed in clinic today. We will obtain the MRI as scheduled later this month and he will work to obtain a colonoscopy in the GI suite. Pending these findings we will discuss the next steps. /elvis/ COLBY LIANG MD Staff Physician, General Surgery I Signed: 05/03/2024 14:57 TRAVIS GRAF [facility] May 03, 2024 02:19 PM SURGERY NOTE: LOCAL TITLE: GENERAL SURGERY NOTE ST[facility] STANDARD TITLE: SURGERY NOTE DATE OF NOTE: MAY 03, 2024@14:19 ENTRY DATE: MAY 03, 2024@14:19:57 AUTHOR: RAE MILLS SS EXP COSIGNER: COLBY LIANG URGENCY: STATUS: COMPLETED GENERAL SURGERY NOTE ST[facility] Has ADDENDA MAY 03, 2024 Brief HPI: Mary Esquivel is a 38-year-old with PMHx [...] healing perianal abscesses, presenting for follow up. Last seen 03/22/24 and plan was to follow up his abscesses in clinic and obtain MRI to evaluate his fistula tracts and any undrained collections. Interval History: Since last visit he has continued to be bothered by the presence of the setons. Denies any other changes. Still using multiple pads daily and having drainage of varied colors from his abscesses. His main concern is wanting to get the setons removed when possible. O: Temp: 98.2 F [36.8 C] (05/03/2024 14:01) Pulse Ox: Measurement DT POx (L/MIN)(%) 05/03/2024 14:01 98 03/22/2024 14:32 98 01/20/2024 08:52 96 01/08/2024 08:54 97 PULSE: 76 (05/03/2024 14:01) RESPIRATION: 18 (05/03/2024 14:01) BLOOD PRESSURE: 105/74 (05/03/2024 14:01) PHYSICAL EXAM General: in NAD HEENT: NC/AT, EOMI Neuro: CN 3-12 grossly intact, no focal deficits CV: RRR Resp: unlabored respirations on room air Abdomen/Pelvis: soft, non-distended, non-tender. colostomy site without erythema or purulence. Anus: 3 setons visualized on exam and 1 removed during the exam. Left side seton insertion sites with tenderness to palpation. Some drainage is expelled with pressure to the area of insertion of one of the setons. MSK: extremities x4 WWP, non-edematous Psych: appropriate [...] % 10/08/2023 20:00 POIKILOCYTOSIS 1+ 10/08/2023 20:00 DIAGNOSIS: Perianal abscesses s/p drainage and seton placement ASSESSMENT/PLAN: Mary is a 38yo M with PMHx JESUS on CPAP, migraines, tobacco [...] perianal abscesses and discussion of seton removal. - 1 seton removed on exam today - Patient to schedule appointment with GI for colonocsopy - Patient to obtain MRI 05/23/24 - Will follow up results of colonoscopy and MRI to discuss further seton removal and management of perianal abscesses. - Return to clinic in 1 month for follow up /elvis/ RAE NICHOLAS ESE TEACHER Signed: 05/03/2024 14:51 /elvis/ COLBY LIANG MD Staff Physician, General Surgery I Cosigned: 05/03/2024 14:56 05/03/2024 ADDENDUM STATUS: COMPLETED I have seen and examined this patient and have confirmed the resident's findings from above. I have assisted in the formation of this plan as stated above and have made changes as appropriate. I agree with the plan as stated above. Mr. Esquivel is a 38-year-old gentleman well-known to the surgical services. Overall he is doing well but still has significant perianal drainage. On examination there is no evidence of any recurrent abscess. The most distal vessel loop was removed in clinic today. We will obtain the MRI as scheduled later this month and he will work to obtain a colonoscopy in the GI suite. Pending these findings we will discuss the next steps. /elvis/ COLBY LIANG MD Staff Physician, General Surgery I Signed: 05/03/2024 14:57 05/24/2024 ADDENDUM STATUS: COMPLETED Alerting Attending Dr. Colby Liang to CT Pelvis w/ contrast results. Unable to have pelvic MRI due to metal shrapnel in neck: CT PELVIS W/CONT Exm Date: MAY 23, 2024@13:44 Req Phys: TRAVIS GRAF Loc: [facility] Img Loc: [facility] Service: [address] [address] (Case [id number] COMPLETE) CT PELVIS W/CONT (CT Detailed) CPT:56885 Contrast Media : Non-ionic Iodinated Reason for Study: follow up anal fisutlas Clinical History: Responsible Attending: Dr. Colby Liang Attending Contact Number: [phone] Resident Contact Number: [phone] pelvis to follow up to [...] 23, 2024 Date Verified: MAY 23, 2024 Hat Brim And Crown Laminating Operator E-Sig:/ELVIS/Priya Guadalupe MD Report: CASE #: [id number] DATE:05/23/2024 4:08 PM CLINICAL HISTORY:follow up anal [...] Primary Interpreting Staff: Priya Guadalupe MD, Radiologist (Hat Brim And Crown Laminating Operator) /TE /elvis/ Travis Graf PA-C General Surgery Physician Glazing Department Supervisor Signed: 05/24/2024 06:37 Receipt Acknowledged By: * AWAITING SIGNATURE * COLBY LIANG MAURA SS [facility]
--- OUTSIDE RECORDS SUMMARY | 2025-01-27 15:28 | XMS_ITS ---
[place] ANESTHESIA PRE/POST-OP CONSULT [facility] Encounter Summary Created on: January 27, 2025 PETERMARY DE LA GARZA DIDIER : 1985 Sex: Male Author Name [facility] [place] [facility] [place] Address [address], [place] [address] Care Team Providers Care Heel Nailing Machine Operator Name Role Phone MITCHEL ROSEN Primary Care [...] PRESCRIPT ION UHEAL TH Dec 25, [address] [facility] [id number] RA ANGELA ESQUIVEL PATIENT [facility] MENTAL HEALTH REPUB LIC SERVI KATI Aug 26, 2019 [id number] [phone] RA ANGELA ESQUIVEL PATIENT [facility] PREFERRED PROVIDER ORGANIZAT ION (PPO) REPUB LIC [employer] Aug 26, 2019 [id number] RA ANGELA ESQUIVEL PATIENT Selected Encounter This section includes the information on record at [place] for the Encounter. Date/Time Encounter Type Encounter Description Reason Provider Source December 14, 2024 07:22 PM Outpatient Encounter ANESTHESIA PRE/POST-OP CONSULT ICD-10-CM E78.2 Mixed hyperlipidemia CRISTHIAN GUERIN Encounter Template Text not used by [place] Assessments - Encounter Diagnoses This section includes the primary and secondary diagnoses documented for the Encounter. Date/Time Primary/Secondary Diagnosis Diagnosis Name Provider Source December 14, 2024 07:31 PM PRIMARY Mixed hyperlipidemia CRISTHIAN GUERIN [facility] Plan of Treatment: Future Appointments (+ 6 months) and Future Tests (+/- 45 days) The Plan of Treatment section includes future care activities for the patient from all [place] [facility] This section includes future appointments and future orders which are active, pending or scheduled. Future Appointments This section includes appointments that were scheduled to occur 6 months from the date of the Encounter, up to a maximum of 20 appointments. The data comes from all [place] treatment [facility]. Appointment Date/Time Appointment Type Appointme nt Facility Name Jan 09, 2025 08:30 AM AMBULATORY - NONE [facility] Feb 05, 2025 02:30 PM AMBULATORY - MEDICINE [facility] Feb 14, 2025 02:00 PM AMBULATORY - SURGERY [facility] Active, Pending, and Scheduled Orders This section includes a listing of several types of active, pending, and scheduled orders, including clinic medications orders, diagnostic test orders, procedure orders and consult orders; where the start date of the order is 45 days before the date of the Encounter or 45 days after the date of theEncounter. The data comes from all [facility]. Test Date/Time Test Type Test Details Facility Name Jan 09, 2025 12:00 AM Laboratory - Blood Bank Order TYPE & SCREEN - LAB BLOOD SP [facility] Jan 09, 2025 10:41 AM Pharmacy - Clinic Medication Order [facility] Lab Results: +/- 30 days of the encounter This section includes the Chemistry and Hematology Lab Results on record with [place] for the patient. Radiology Reports and Pathology Reports are provided separately, in subsequent sections. Lab Results This section contains the Chemistry/Hematology Results that were resulted 30 days before or 30 daysafter the date of the Encounter. Date/Time Source Result Type Result - Unit Interpretation Reference Range Specimen Type Comment Nov 15, 2024 03:47 PM [facility] COMPREHENSIVE METABOLIC PANEL PLASMA Specimen Type: PLASMA Comment: No hemolysis noted. Ordering Provider: WAI MESA Report Released Date/Time: Nov 15, 2024 03:44 PM Reporting Lab: [address] [address] Performing Lab: [address] [address] CREATININE 1.06 mg/dL 0.7-1.3 UREA NITROGEN 11.0 mg/dL 9.0-25.0 GLUCOSE 89 mg/dL 72-99 SODIUM 139 meq/L 136-145 POTASSIUM 3.9 meq/L 3.5-5 CHLORIDE 107 meq/L 98-107 CARBON DIOXIDE 24 meq/L 22-31 CALCIUM 9.2 mg/dL 8.4-10.4 PROTEIN 7.2 g/dL 6-8.6 ALBUMIN 4.4 g/dL 3.4-5 TOTAL BILIRUBIN 0.3 mg/dL 0.2-1.2 ALKALINE PHOSPHATASE 92 U/L 40-150 AST/SGOT 24 U/L 5-34 ALT/SGPT 27 U/L 8-40 EGFR (CKD-EPI 2020) 90.4 >60 Nov 15, 2024 03:47 PM [facility] CBC BLOOD Specimen Type: BLOOD No comment entered. Ordering Provider: WAI MESA Report Released Date/Time: Nov 15, 2024 03:44 PM Reporting Lab: [address] [address] Performing Lab: [address] [address] WBC 8.0 10*3/uL 3.6-11.2 RBC 4.99 10*6/uL 4.10-5.70 HGB 15.7 g/dL 13.1-16.8 HCT 45.8 38.2-48.4 MCV 91.8 fL 80.0-100.0 MCH 31.5 pg 27.0-34.0 MCHC 34.3 g/dL 33.0-36.0 PLT 231 10*3/uL 150-400 MPV 10.4 fL 7.5-11.2 RDW 12.4 11.8-15.1 LYMPHOCYTES, AUTO % 22 MONOCYTES, AUTO % 6 NEUTROPHILS, AUTO % 71 EOSINOPHILS, AUTO % 1 BASOPHILS, AUTO % 0 LYMPHOCYTES, ABSOLUTE 1.76 10*3/uL 0.77- 4.50 MONOCYTES, ABSOLUTE 0.49 10*3/uL 0.19-0. 80 NEUTROPHILS, ABSOLUTE 5.66 10*3/uL 2.10- 8.00 EOSINOPHILS, ABSOLUTE 0.06 10*3/uL 0.00- 0.60 BASOPHILS, ABSOLUTE 0.02 10*3/uL 0.00-0. 20 Social History: Smoking Status (Most current) and [...] VA-TOBACCO QUIT 1 TO < 5 YRS [facility] Tobacco Use History This section includes a history of the smoking, or tobacco-related health factors, that were collected on or before the date of the Encounter. The data comes from the [place] facility where the Encounter took place. Date/Time Smoking Status/Tobacco Use Comment F acility Jul 22, 2023 10:43 AM VA-TOBACCO QUIT 1 TO < 5 YRS [facility] Jul 22, 2022 01:24 PM VA-TOBACCO FORMER USER [facility] Jul 22, 2022 01:24 PM VA-TOBACCO QUIT 1 TO < 5 YRS [facility] Sep 10, 2020 02:44 PM VA-TOBACCO DOESNT USE WI 30 MIN WAKEUP [facility] Sep 10, 2020 02:44 PM VA-TOBACCO USE > 1 5 LESS THAN 30 YEARS [facility] Sep 10, 2020 02:44 PM VA-TOBACCO USE ADVICE [facility] Sep 10, 2020 02:44 PM VA-TOBACCO USE SLOT SERVICE SPECIALIST NO [facility] Sep 10, 2020 02:44 PM VA-TOBACCO USE MED NO [facility] Sep 10, 2020 02:44 PM VA-TOBACCO USER SOME DAYS [facility] May 14, 2009 08:49 AM CURRENT TOBACCO USER [facility] Encounter Notes: All associated encounter notes This section contains the clinical notes associated to the Encounter. Date/Time Encounter Note(s) Provider Source December 14, 2024 07:22 PM CONSULT: LOCAL TITLE: E-CONSULT ANESTHESIA ST STANDARD TITLE: CONSULT DATE OF NOTE: DECEMBER 14, 2024@19:22 ENTRY DATE: DECEMBER 14, 2024@19:22:59 AUTHOR: CRISTHIAN GUERIN EXP COSIGNER: URGENCY: STATUS: COMPLETED The reason for consult: Rectal Exam Under Anesthesia / possible seton removal I have reviewed pertinent CPRS documentation in the electronic medical record for this patient. The recommendations/findings offered are the result of information from the requesting provider and a chart review only. 39 yo chronic anal fistula - internal-external hemorrhoids / JESUS / migraines / HLD / PTSD / ? Chron's dz Diagnosis and/or Impression: Patient underwent EGD/[place] Jul 2024 - Lap Colostomy Creation December 2023 and EUA with Seton placement November 2023. Patient has undergone various procedures with no complications. No further testing needed prior to procedure. Risks and benefits of anesthesia will be discussed prior to procedure. 5-10 minutes or less spent reviewing patient's medical records /elvis/ CRISTHIAN GUERIN MD Staff Anesthesiologist Signed: 12/14/2024 19:31 Receipt Acknowledged By: 12/15/2024 08:10 /evlis/ SUBHA CHAMPION PA-C Physician Digital Media Coordinator, Anesthesiology 12/28/2024 16:07 /elvis/ VIDYA LARKIN PA-C Physician Digital Media Coordinator, General Surgery CRISTHIAN GUERIN [facility]
--- OUTSIDE RECORDS SUMMARY | 2025-01-27 15:28 | XMS_ITS ---
Author Name [facility] [place] Address [address] [facility] [facility], [place] [address] Care Team Providers Care Senior Marketing Coordinator Name Role Phone MITCHEL ROSEN Primary Care Provider Magda ragsdale Insurance Providers: All historical and current Section [...] ION UHEAL TH Dec 25, 2019 EAL [id number] [phone] RA ANGELA ESQUIVEL PATIENT [facility] MENT[facility] REPUB LIC SERVI KATI Aug 26, 2019 [id number] [phone] RA ANGELA ESQUIVEL PATIENT [facility] PREFERRED PROVIDER ORGANIZAT ION (PPO) REPUB LIC [employer] Aug 26, 2019 [id number] RA ANGELA ESQUIVEL PATIENT Selected Encounter This section includes the information on record at [place] for the Encounter. Date/Time Encounter Type Encounter Description Reason Provider Source Jan 09, 2025 08:30 AM MEASURE BLOOD OXYGEN LEVEL PRE-SURG EVAL ICD-10-CM K61.2 Anorectal abscess ANALISA GREENBERG IHE Encounter Template Text not used by [place] Assessments - Encounter Diagnoses This section includes the primary and secondary diagnoses documented for the Encounter. Date/Time Primary/Secondary Diagnosis Diagnosis Name Provider Source Jan 09, 2025 09:43 AM PRIMARY Anorectal abscess LALA GREENBERG [facility] Plan of Treatment: Future Appointments (+ 6 months) and Future Tests (+/- 45 days) The Plan of Treatment section includes future care activities for the patient from all [place] [facility]. This section includes future appointments and future orders which are active, pending or scheduled. Future Appointments This section includes appointments that were scheduled to occur 6 months from the date of the Encounter, up to a maximum of 20 appointments. The data comes from all [place] treatment [facility]. Appointment Date/Time Appointment Type Appointme nt Facility Name Feb 05, 2025 02:30 PM [facility] Feb 14, 2025 02:00 PM AMBULATORY - SURGERY [facility] Active, Pending, and Scheduled Orders This section includes a listing of several types of active, pending, and scheduled orders, including clinic medications orders, diagnostic test orders, procedure orders and consult orders; where the start date of the order is 45 days before the date of the Encounter or 45 days after the date of theEncounter. The data comes from all [facility]. Test Date/Time Test Type Test Details Facility Name Jan 09, 2025 12:00 AM Laboratory - Blood Bank Order TYPE & SCREEN - LAB BLOOD SP [facility] Jan 09, 2025 10:41 AM Pharmacy - Clinic Medication Order [facility] Vital Signs: All taken on the encounter date This section contains inpatient and outpatient Vital Signs collected on the date of the Encounter. Date/Time Temperature Pulse Blood Pressure Respiratory Rate SP02 Pain Height Weight Body Mass Index Source Jan 09, 2025 11:00 AM 97.9 F 63 /min 116/59 mm[Hg] 18 /min 99 % 0 [facility] Jan 09, 2025 08:45 AM 97.9 F 63 /min 127/89 mm[Hg] 16 /min 99 % 0 74 in 235 lb 30 [facility] Social History: Smoking Status (Most current) and Tobacco Use (All prior to encounter date) This section includes the most current, and the historical, smoking and tobacco- related health factors from the [facility] where the Encounter took place. Current Smoking Status This section includes the most current smoking, or tobacco-related health factor, from the [place] facility where the Encounter took place. Date/Time Current Smoking Status Comment Rosie ity Jul 22, 2023 10:43 AM VA-TOBACCO FORMER USER [facility] Tobacco Use History This section includes a history of the smoking, or tobacco-related health factors, that were collected on or before the date of the Encounter. The data comes from the [place] facility where the Encounter took place. Date/Time Smoking Status/Tobacco Use Comment F acility Jul 22, 2023 10:43 AM VA-TOBACCO QUIT 1 TO < 5 YRS [facility] Jul 22, 2022 01:24 PM VA-TOBACCO FORMER USER [facility] Jul 22, 2022 01:24 PM VA-TOBACCO QUIT 1 TO < 5 YRS [facility] Sep 10, 2020 02:44 PM VA-TOBACCO DOESNT USE WI 30 MIN WAKEUP [facility] Sep 10, 2020 02:44 PM VA-TOBACCO USE > 1 5 LESS THAN 30 YEARS [facility] Sep 10, 2020 02:44 PM VA-TOBACCO USE ADVICE [facility] Sep 10, 2020 02:44 PM VA-TOBACCO USE MISSILEMAN NO [facility] Sep 10, 2020 02:44 PM VA-TOBACCO USE MED NO [facility] Sep 10, 2020 02:44 PM VA-TOBACCO USER SOME DAYS [facility] May 14, 2009 08:49 AM CURRENT TOBACCO USER [facility] Encounter Notes: All associated encounter notes This section contains the clinical notes associated to the Encounter. Date/Time Encounter Note(s) Provider Source Jan 09, 2025 09:15 AM NURSING NOTE: LOCAL TITLE: VAAES NSG IV INSERTION AND MAINTENANCE STANDARD TITLE: NURSING NOTE DATE OF NOTE: JAN 09, 2025@09:15 ENTRY DATE: JAN 09, 2025@09:43:56 AUTHOR: GREENBERG,KIM D EXP COSIGNER: URGENCY: STATUS: COMPLETED Version 2.2 Charting in accordance with [facility] STANDARD ([facility]) ACUTE INPATIENT/REHABILITATION NURSING ADMISSION SCREENING, ASSESSMENT, AND STANDARDS OF CARE IV Line Insertion and Maintenance Peripheral IV Line #1: Insertion: Date/Time: Dec@09:15 Inserted by (name): Kim Location: Right, Forearm Gauge: 20 Assessment: Location: Right, Forearm Gauge: 20 Dressing Condition: Clean, dry, intact Site Condition: No redness, swelling, pain Line Status: Patent/infusing /es/ KIM GREENBERG RN REGISTERED NURSE Signed: 01/09/2025 09:45 KIM GREENBERG [facility] Jan 09, 2025 08:55 AM SURGERY NURSING PHONG SCHWARTZ NOTE: LOCAL TITLE: SONALI MALCOLM PREOPERATIVE-PREPROCEDURAL STL STANDARD TITLE: SURGERY NURSING PROCEDURE NOTE DATE OF NOTE: JAN 09, 2025@08:55 ENTRY DATE: JAN 09, 2025@09:36:31 AUTHOR: KIM GREENBERG EXP COSIGNER: URGENCY: STATUS: COMPLETED SONALI AETC PREOPERATIVE-PREPROCEDURAL STL Has ADDENDA AETC PRE-OPERATIVE/PRE-PROCEDUR AL ASSESSMENT TEST Procedure:Rectal EUA possible Seton Removal Service:Surg. II ARRIVAL TIME: Dec@08:55 VITAL SIGNS: Temperature:97.9 F [36.6 C] (01/09/2025 08:45) Blood Pressure:127/89 (01/09/2025 08:45) Pulse:63 (01/09/2025 08:45) Respirations:16 (01/09/2025 08:45) 99% (01/09/2025 08:45) Weight:235 lb [106.59 kg] (01/09/2025 08:45) Responsible Constitution Party(Facsimile Machine Operator) Name:Judith Contact number: [phone] Current residence Home NPO since Midnight No Allergies: Patient has answered NKA Are you taking any blood thinners:Yes If yes, comment:Held Fish Oil Medications taken since Midnight:Yes If Yes, list medications:Am meds History of illicit drug use? Yes If yes, comment:Occassionally takes gummies History of cancer diagnosis? No History of radiation therapy to planned surgical field(s)?No History of sleep apnes?Yes If yes, do you currently use CPAP machine? YesComment: Vision Aids Eyeglasses Comment:With spouse Dentures:Yes If yes: Upper partial Hearing Aides:No Ambulatory Aides:No Personal Belongings Secured in locker. Labs completed:Not ApplicableDec Diabetes:No Do you currently have any open or draining wounds? No Pain No Do you have a history of tobacco use?Yes If yes how often: Comment:Patient vapes Do you have an Advance Directive?Yes Nursing care plan STANDARD OF CARE / PRACTICE INITIAL NURSING DIAGNOSIS: AETC Alteration in Comfort and Knowledge Related to: Invasive procedure: See Above EXPECTED OUTCOMES: Patient Will: X Verbalize an understanding of procedure. Target Date:Dec X Verbalize effective use of pain medication. Target Date:Dec X Be free of complications post-procedure. Target Date:Dec X Verbalize knowledge of discharge instructions and follow-up care. Target Date:Dec NURSING INTERVENTIONS: PHYSIOLOGICAL 1. Assess and monitor vital signs and respiratory status pre and post-procedure. INITIATED 2. Assess need for PT/OT instruction prior to procedure (i.e.,crutch training). INITIATED 3. Assess incision site/dressing for drainage, bleeding, hematoma, and site pain post-procedure. INITIATED 4. Initiate appropriate wound care post-procedure. INITIATED 5. Maintain IV access and parenteral infusions pre and post- procedure. INITIATED 6. Assess post-procedure for adequate oral intake, urinary elimination, and return of prior motor function. INITIATED COMFORT 7. Monitor for pain (location, intensity, frequency and precipitating factors). INITIATED 8. Administer, evaluate and document the effectiveness of pain medication. INITIATED SAFETY 9. Keep call light within reach and reinforce calling for assistance as needed. INITIATED 10. Explain and reinforce smoking policy. INITIATED 11. Other: INITIATED INFECTION CONTROL 12. Maintain Standard Precautions and explain need to patient/significant others. INITIATED EQUIPMENT NEEDS 13. Assess and provide equipment/supplies required to provide safe patient care. INITIATED KNOWLEDGE (PATIENT EDUCATION) 14. Provide teaching specific to patient's needs: X NPO status IV therapy Pain management Early mobility Turning, coughing and deep breathing Incentive spirometer WILLIAM hose Other: INITIATED 15. Instruct patient/significant other on homecare requirements. INITIATED 16. Signs and symptoms to report to health care team. INITIATED PSYCHOSOCIAL / FUNCTIONAL 17. Encourage feedback related to patient's expectations/concerns related to procedure. INITIATED 18. Assess patient/significant other's ability to manage and comply with discharge instructions. INITIATED DISCHARGE PLANNING 19. Assure appropriate transportation available upon discharge. INITIATED 20. Encourage patient to keep all follow-up clinic appointments. INITIATED 21. Continue discharge planning/aftercare with patient/significant other using interdisciplinary approach: X Physician/Service: Gen. Surg. II PT OT Community Support Groups: Other: INITIATED 22. Other interventions specific to patient: INITIATED THE ABOVE EXPECTED OUTCOMES (GOALS) HAVE BEEN MUTUALLY SET WITH: Patient X Physician/Service: Gen. Surg. II PT OT Community Support Groups: Other: STABILIZED Learning Assessment: - * This patient's learning ABILITIES, BARRIERS to learning, CULTURAL and CHRISTIAN beliefs, and learning PREFERENCES were assessed. Following are findings of note: Patient reads well. LANGUAGE Patient reports that Luxembourgish is preferred language for healthcare. Patient reports learning preference is attending one-to-one or group demonstrations. /lino GREENBERG RN REGISTERED NURSE Signed: 01/09/2025 09:43 01/09/2025 ADDENDUM STATUS: COMPLETED @0947 Patient left 4B to OR via stretcher accompanied by Surgical Team. /elvis/ KIM GREENBERG RN REGISTERED NURSE Signed: 01/09/2025 09:51 01/09/2025 ADDENDUM STATUS: COMPLETED Post Anesthesia Sedation Score - Phase 2 Phase 2 Discharge Criteria TOTAL SCORE=10 Pain 2 Points - Minimal or none - Pain Score 0-4 or at tolerable level or at baseline Nausea/Vomiting 2 Points - Minimal or none Circulatory Status 2 Points - BP/HR less than 20% or 20 mmHg of baseline Activity and Mental Status 2 Points - Oriented x3 AND has steady gait (at baseline for non-ambulating patients) Surgical Site/Dressing 2 Points - Dry and Clean or Not Applicable (for example, Endoscopy) [facility] Phase 2 time documented Time: 1100 @1100 Patient arrives to 4N via stretcher accompanied by patient transport, 4N nursing staff at bedside. Vital signs stable no c/o pain. PIV removed intact, 2x2 to site with coban. AETC DISCHARGE NURSING DIAGNOSIS: AETC Alteration in Comfort and Knowledge Related to: Invasive procedure: EXPECTED OUTCOMES MET BY PATIENT: Verbalizes an understanding of procedure. , Verbalizes effective use of pain medication. , Is free of complications post-procedure., Verbalizes knowledge of discharge instructions and follow-up care., Patient/significant other demonstrates procedures / skills for effective home care., Decreased level of anxiety related to discharge/home care achieved. Comment: ASSESSMENT: Patient is awake and oriented: Yes Vital signs stable: Yes Temperature < 101 F: Yes Wound site stable: Yes Tolerates fluids: Yes Minimal nausea: Yes Able to urinate: Yes Able to ambulate: Yes Patient is free of dyspnea: Yes Patient is free of pain: Yes Pain Score:0 Comment: DISCHARGE: Discharge Summary Date/Time:Dec@11:30 Discharge instruction sheet given to patient: Patient instructed on:Wound care, pain control, when to call, follow up. Understanding of discharge instructions expressed. Patient walked off of floor for discharge accompanied by driver medic. Mode of discharge: Accompanied by: Significant Other, Verbalized understanding of plan of care Follow-up appointment: Clinic: gen surg colorectal Date/Time:Jan@14:00 /elvis/ TAN VILLA RN REGISTERED NURSE Signed: 01/09/2025 11:52 KIM GREENBERG [facility]
--- OUTSIDE RECORDS SUMMARY | 2025-01-27 15:28 | XMS_ITS | Encounter Summary ---
Author Name [facility] [place] Address [address], [place] [address] Care Team Providers Care Ship'S Pilot Name Role Phone SHARMIN ROSEN Primary Care [...] PRESCRIPT ION UHEAL TH Dec 25, 2019 [facility] [id number] RA ANGELA ESQUIVEL PATIENT [facility] MENT[facility] REPUB LIC SERVI KATI Aug 26, 2019 [id number] [phone] RA ANGELA ESQUIVEL PATIENT [facility] PREFERRED PROVIDER ORGANIZAT ION (PPO) REPUB LIC [employer] Aug 26, 2019 [id number] [phone] RA ANGELA ESQUIVEL PATIENT Selected Encounter This section includes the information on record at [place] for the Encounter. Date/Time Encounter Type Encounter Description Reason Provider Source Aug 22, 2024 08:15 AM EGD BIOPSY SINGLE/MULTIPLE GI ENDOSCOPY ICD-10-CM H60.12 Cellulitis of left external ear MARITZA FLETCHER Elliot Encounter Template Text not used by [place] Assessments - Encounter Diagnoses This section includes the primary and secondary diagnoses documented for the Encounter. Date/Time Primary/Secondary Diagnosis Diagnosis Name Provider Source Jan 03, 2025 03:30 PM PRIMARY Cellulitis of left external ear DONNIEMANNIE [facility] Jan 03, 2025 03:30 PM SECOND[facility] Jan 03, 2025 03:30 PM SECOND[facility], [facility] Jan 03, 2025 03:30 PM SECONDARY Indeterminate colitis Tanner FLETCHER [facility] Plan of Treatment: Future Appointments (+ 6 months) and Future Tests (+/- 45 days) The Plan of Treatment section includes future care activities for the patient from all [place] [facility]. This section includes future appointments and future orders which are active, pending or scheduled. Future Appointments This section includes appointments that were scheduled to occur 6 months from the date of the Encounter, up to a maximum of 20 appointments. The data comes from all [place] treatment facilities. Appointment Date/Time Appointment Type Appointme nt Facility Name Aug 23, 2024 01:30 PM AMBULATORY - SURGERY [facility] Aug 31, 2024 02:00 PM AMBULATORY - MEDICINE [facility] Sep 26, 2024 03:00 PM AMBULATORY - MEDICINE [facility] Oct 09, 2024 09:00 AM AMBULATORY - MEDICINE [facility] Oct 16, 2024 03:30 PM AMBULATORY - NONE [facility] Nov 15, 2024 02:00 PM AMBULATORY - SURGERY [facility] Jan 09, 2025 08:30 AM AMBULATORY - NONE [facility] Feb 05, 2025 02:30 PM AMBULATORY - MEDICINE [facility] Feb 14, 2025 02:00 PM AMBULATORY - SURGERY [facility] Social History: Smoking Status (Most current) [...] 22, 2023 10:43 AM VA-TOBACCO FORMER USER [facility] Tobacco Use History This section includes a history of the smoking, or tobacco-related health factors, that were collected on or before the date of the Encounter. The data comes from the [place] facility where the Encounter took place. 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 The data comes from all [place] treatment facilities. Date/Time Pathology Report Provider Source Aug 25, 2024 10:48 AM LR SURGICAL PATHOL OGY REPORT: LOCAL TITLE: LR SURGICAL PATHOLOGY REPORT STANDARD TITLE: PATHOLOGY PROCEDURE NOTE DATE OF NOTE: AUG 25, 2024@10:48:45 ENTRY DATE: AUG 25, 2024@10:48:45 AUTHOR: DANGELO CODY COSIGNER: URGENCY: STATUS: COMPLETED $APHDR - - [...] SIGNIFICANT LYMPHOID AGGREGATES AND HYPERPLASIA (SEE COMMENT) /lino CODY MD, PhD STAFF PATHOLOGIST Signed Aug 25, 2024@10:48 Performing Laboratory: Surgical Pathology Report [facility] [address] [place] [address] CLIA# [id number] [address] [place] [phone] $FTR - - - - - - [...] - - MARY ESQUIVEL STANDARD FORM 515 ID:[id number] SEX:M :1985 AGE: 38 LOC:SEAN-GI/ENDO LAB ANESTHESIA2 PCP: Sharmin Rosen /lino CODY MD, PhD STAFF PATHOLOGIST Signed: 08/25/2024 10:48 DANGELO CODY [facility] Encounter Notes: All associated encounter notes This section contains the clinical notes associated to the Encounter. Date/Time Encounter Note(s) Provider Source Aug 25, 2024 11:38 AM GASTROENTEROLOGY LETTERS: LOCAL TITLE: GI BIOPSY RESULTS LETTER STANDARD TITLE: GASTROENTEROLOGY LETTERS DATE OF NOTE: AUG 25, 2024@11:38 ENTRY DATE: AUG 25, 2024@11:38:12 AUTHOR: ANTONELLA FLETCHER COSIGNER: URGENCY: STATUS: COMPLETED [facility] [address] [place] [address] AUG 25, 2024 MARY ESQUIVEL [address] [place] [id number] Dear Mary Esquivel, Thank you for completing your upper endoscopy and colonoscopy recently at [facility]. I am writing to give you the pathology results for the tissue removed during the procedure. The tissue removed from your colon showed mild nonspecific inflammation, but the features were not suggestive of inflammatory bowel disease. The tissue samples obtained from your esophagus were suggestive of acid reflux and eosinophilic esophagitis, which is a condition where there are a high number of eosinophils (white blood cell) that cause inflammation and symptoms like difficulty swallowing. I recommend you take an acid suppressing medication, omeprazole, once daily to treat this. After reviewing your results I recommend you complete a follow-up colonoscopy in 10 years and have continued follow-up with your colon surgery team. I recommend that you schedule a follow-up appointment with the GI clinic. Please contact the GI clinic at the number provided below if you do not get a call from them within the next 2 weeks. If you want to see the full pathology report, you may do this by logging on the [employer] website at [email or web address]. If you have not already done so, I recommend you visit this web site to set up your account. You will then be able to review this result and all future results. Please call [phone] if you have any questions about this letter. Sincerely, ANTONELLA FLETCHER Gastroenterology ANTONELLA FLETCHER [facility] Aug 22, 2024 08:48 AM PREPROCEDURE NOTE: LOCAL TITLE: PHYSICIAN PRE-PROCEDURE ASSESSMENT STL STANDARD TITLE: PREPROCEDURE NOTE DATE OF NOTE: AUG 22, 2024@08:48 ENTRY DATE: AUG 22, 2024@08:48:56 AUTHOR: MANNIE FIELDS EXP COSIGNER: ANTONELLA FLETCHER URGENCY: STATUS: COMPLETED Airway: No significant abnormality Mallampati Score: 1 Neck Extension: Not Limited Teeth: No significant abnormality Cardiac: No significant abnormality Pulmonary: No significant abnormality Gastrointestinal: Other/comment: sigmoid ostomy Neurological: No significant abnormality ASA Score: 3 Abdominal and Pelvic Surgical History: hemorrhoidectomy, loop sigmoid colostomy Sedation/Anesthesia Plan: Anesthesia consult History of previous adverse reaction to sedation: No Tobacco use: Yes Alcohol use: No Recreational drug use: No Last oral intake:NPO >6 hours Time spent: /elvis/ MANNIE FIELDS MD Gastroenterology Fellow Signed: 08/22/2024 09:42 /elvis/ ANTONELLA FLETCHER Gastroenterology Cosigned: 08/22/2024 11:46 MANNIE FIELDS [facility]
--- OUTSIDE RECORDS SUMMARY | 2025-01-27 15:28 | XMS_ITS | Encounter Summary ---
Author Name [facility] [place] [facility] [place] [facility] [place] Address [address], [place] [address] Care Team Providers Care Bath Tester Name Role Phone SHARMIN ROSEN Primary Care [...] PRESCRIPT ION UHEAL TH Dec 25, 2019 [facility] [id number] RA ANGELA ESQUIVEL PATIENT [facility] MENTAL HEALTH REPUB LIC SERVI KATI Aug 26, 2019 [id number] [phone] RA ANGELA ESQUIVEL PATIENT [facility] PREFERRED PROVIDER ORGANIZAT ION (PPO) REPUB LIC [employer] Aug 26, 2019 [id number] RA ANGELA ESQUIVEL PATIENT Selected Encounter This section includes the information on record at [place] for the Encounter. Date/Time Encounter Type Encounter Description Reason Provider Source Nov 15, 2024 02:00 PM OFFICE O/P EST HI 40 MIN GENERAL SURGERY ICD-10-CM H60.12 Cellulitis of left external ear CARTERDAJA III IHE Encounter Template Text not used by [place] Assessments - Encounter Diagnoses This section includes the primary and secondary diagnoses documented for the Encounter. Date/Time Primary/Secondary Diagnosis Diagnosis Name Provider Source Nov 16, 2024 09:59 AM PRIMARY Cellulitis of left external ear WAI MESA [facility] Nov 16, 2024 09:59 AM SECONDARY Post-traumatic stress disorder, unspecified DAJA CARTER III [facility] Nov 16, 2024 09:59 AM SECONDARY Tobacco use DAJA CARTER III [facility] Plan of Treatment: Future Appointments (+ 6 months) and Future Tests (+/- 45 days) The Plan of Treatment section includes future care activities for the patient [facility] [place] [facility] This section includes future appointments and future orders which are active, pending or scheduled. Future Appointments This section includes appointments that were scheduled to occur 6 months from the date of the Encounter, up to a maximum of 20 appointments. The data comes from all [place] treatment facilities. Appointment Date/Time Appointment Type Appointme nt Facility Name Jan 09, 2025 08:30 AM AMBULATORY - NONE [facility] Feb 05, 2025 02:30 PM AMBULATORY - MEDICINE [facility] Feb 14, 2025 02:00 PM AMBULATORY - SURGERY [facility] Lab Results: +/- 30 days of the encounter This section includes the Chemistry and Hematology Lab Results on record with [place] for the patient. Radiology Reports and Pathology Reports are provided separately, in subsequent sections. Lab Results This section contains the Chemistry/Hematology Results that were resulted 30 days before or 30 daysafter the date of the Encounter. Date/Time Source Result Type Result - Unit Interpretation Reference Range Specimen Type Comment Nov 15, 2024 03:47 PM [facility] COMPREHENSIVE METABOLIC PANEL PLASMA Specimen Type: PLASMA Comment: No hemolysis noted. Ordering Provider: WAI MESA Report Released Date/Time: Nov 15, 2024 03:44 PM Reporting Lab: [facility] [address] [id number] Performing Lab: [facility] [address] [address] CREATININE 1.06 mg/dL 0.7-1.3 UREA NITROGEN 11.0 [...] 90.4 >60 Nov 15, 2024 03:47 PM [facility] CBC BLOOD Specimen Type: BLOOD No comment entered. Ordering Provider: WAI MESA Report Released Date/Time: Nov 15, 2024 03:44 PM Reporting Lab: [facility] [address] [address] Performing Lab: [facility] [address] [address] WBC 8.0 10*3/uL 3.6-11.2 RBC 4.99 10*6/uL [...] 0.60 BASOPHILS, ABSOLUTE 0.02 10*3/uL 0.00-0. 20 Vital Signs: All taken on the encounter date This section contains inpatient and outpatient Vital Signs collected on the date of the Encounter. Date/Time Temperature Pulse Blood Pressure Respiratory Rate SP02 Pain Height Weight Body Mass Index Source Nov 15, 2024 02:17 PM 99 80 128/86 20 97 4 74 248.7 32 [facility] Social History: Smoking Status (Most current) and Tobacco Use (All prior to encounter date) This section includes the most current, and the historical, smoking and tobacco- related health factors from the [place] facility where the Encounter took place. Current Smoking Status This section includes the most current smoking, or tobacco-related health factor, from the [place] facility where the Encounter took place. Date/Time Current Smoking Status Comment Facil ity Jul 22, 2023 10:43 AM VA-TOBACCO QUIT 1 TO < 5 YRS [facility] Tobacco Use History This section includes a history of the smoking, or tobacco-related health factors, that were collected on or before the date of the Encounter. The data comes from the [place] facility where the Encounter took place. Date/Time Smoking Status/Tobacco Use Comment F acility Jul 22, 2023 10:43 AM VA-TOBACCO QUIT 1 TO < 5 YRS [facility] Jul 22, 2022 01:24 PM VA-TOBACCO FORMER USER [facility] Jul 22, 2022 01:24 PM VA-TOBACCO QUIT 1 TO < 5 YRS [facility] Sep 10, 2020 02:44 PM VA-TOBACCO DOESNT USE WI 30 MIN WAKEUP [facility] Sep 10, 2020 02:44 PM VA-TOBACCO USE > 1 5 LESS THAN 30 YEARS [facility] Sep 10, 2020 02:44 PM VA-TOBACCO USE ADVICE [facility] Sep 10, 2020 02:44 PM VA-TOBACCO USE SCREW SUPERVISOR NO [facility] Sep 10, 2020 02:44 PM VA-TOBACCO USE MED NO [facility] Sep 10, 2020 02:44 PM VA-TOBACCO USER SOME DAYS [facility] May 14, 2009 08:49 AM CURRENT TOBACCO USER [facility] Radiology Reports: +/- 30 days of the [...] the Encounter. The data comes from all [place] treatment facilities. Date/Time Radiology Report Provider Source Oct 16, 2024 03:[address] CERVICAL SPINE W/O CONT: MARY ESQUIVEL DIDIER [id number] -[id number] M Exm Date: OCT 16, 2024@15:15 Req Phys: SHARMIN ROSEN Loc: [facility]-ST CLR PACT PHONE 7 PCP (Re Img Loc: [facility]-CT IMAGING [facility] Service: [facility] [address] [place] [address] (Case [id number] COMPLETE) CT CERVICAL SPINE W/O CONT (CT Detailed) CPT:76846 Reason for Study: cervical radiculopathy Clinical History: Responsible Attending: Sharmin Rosen Attending Contact Number: Teams Resident Contact Number: 39yo male with bilateral [...] 16, 2024 Date Verified: OCT 16, 2024 Media Consultant E-Sig:/ES/Reema Cruz MD. FACR. Report: History: cervical [...] Interpreting Staff: Reema Cruz MD. FACR, Neuroradiologist (Media Consultant) /REEMA PETERSEN [facility] Encounter Notes: All associated encounter notes This section contains the clinical notes associated to the Encounter. Date/Time Encounter Note(s) Provider Source Nov 16, 2024 01:58 PM SURGERY NOTE: LOCAL TITLE: GENERAL SURGERY NOTE STL STANDARD TITLE: SURGERY NOTE DATE OF NOTE: NOV 16, 2024@13:58 ENTRY DATE: NOV 16, 2024@13:58:14 AUTHOR: DANE SCHAFFER EXP COSIGNER: URGENCY: STATUS: COMPLETED If a patient should call inquiring about this procedure or to cancel, please contact Cathryn Yeh PA-C ext. [phone], dAa Graf PA-C ext. [phone], tone regulatorswitch maker Dane Schaffer, ext. [phone]. Procedure: rectal EUA with possible seton removal Patient agreeable to this surgical date: 01/09/25 arrivin to [facility] Will likely be discharged the same day and will need lumber driver to go home after surgery. Pt. verbalized understanding NPO after midnight before surgery. Take usual morning medications the day of surgery with sips of water/no coffee. Patient instructed to hold the following medications on the morning of surgery: na Do not bring your medications. Any medications you need will be provided for you. Bring your inhalers(use morning of surgery) and CPAP machine, if you use them. Preop letter included the above information given to pt during clinic visit. Pt. verbalized all understanding of the above information. Pt. encouraged to call surgical dept for further questions or concerns. Surgical dept extension is included within the preop letter. Pt. made aware anesthesia consult will be submitted. Patient needs the following preop testing: labs and EKG Patient voiced understanding that should they fail to comply with these instructions their case will be cancelled and may not be rescheduled for several weeks. /elvis/ DANE SCHAFFER RN, BSN REGISTERED NURSE Signed: 11/16/2024 13:59 Receipt Acknowledged By: 11/22/2024 10:42 /elvis/ Jovanny Carter III, MD FACS General Surgery Attending DANE SCHAFFER [facility] Nov 15, 2024 02:20 PM SURGERY NOTE: LOCAL TITLE: GENERAL SURGERY NOTE STL STANDARD TITLE: SURGERY NOTE DATE OF NOTE: NOV 15, 2024@14:20 ENTRY DATE: NOV 15, 2024@14:21:15 AUTHOR: WAI MESA COSIGNER: OJVANNY CARTER III URGENCY: STATUS: COMPLETED GENERAL SURGERY NOTE STL Has ADDENDA ```````````````````````````` ```````````````````````````` ``H&P/NEW CONSULT ~~~~~~~~~~~~~~~~~~~~~~~~~~~~ ~~~~~~~~~~~~~~~~~~~~~~~~~~~~ ~~~~~~ HPI: ALVINMARY VELÁSQUEZ is a 39-year-old MALE with PMHx JESUS on CPAP, migraines, [...] abscesses, presenting for follow up. Last seen 08/23/24 where he had rectal discharge, occasional blood, and pain worse with sitting and prolonged walking. 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 Initial plan was to start on biologic if positive for Chrohn's disease. Subsequent GI evaluation did not determine biopsy findings to be consistent with IBD. Interval History: Still having pustular snot-like discharge every day with constant rectal pain, worse with activity, direct pressure. Has 1 seton left which he would like removed. Pain well controlled with Has a colostomy in place without any issues. Denies fevers, chills, nausea, vomitting. 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 ACTIVE OUTPATIENT MEDS: Active Outpatient Medications (including Supplies): Active Outpatient Medications Status 1) ADHESIVE REMOVER WIPE H#2660 USE/APPLY DIRECTED TO ACTIVE AFFECTED AREA(S) USE DIRECTED 2) APPLIANCE DEODORANT SPRAY M-9 SMALL AMOUNT TO AFFECTED ACTIVE AREA(S) NEEDED TO OSTOMY POUCH 3) BARRIER,ADAPT CERARING H#2970 USE BARRIER STOMA TWO TIMES ACTIVE PER WEEK (10 BARRIERS = 30 DAY SUPPLY) Indication: FOR OSTOMY CARE 4) BARRIER,OSTOMY,NEW IMAGE H#70373 USE BARRIER STOMA TWO TIMES ACTIVE PER WEEK (5 BARRIERS = 30 DAY SUPPLY) USE WITH OSTOMY APPLIANCE CHANGE TWICE WEEKLY. Indication: FOR OSTOMY CARE 5) IBUPROFEN 600MG TAB TAKE ONE TABLET BY MOUTH FOUR TIMES A ACTIVE DAY NEEDED TAKE WITH FOOD. Indication: FOR PAIN 6) OMEPRAZOLE 40MG EC CAP TAKE ONE CAPSULE BY MOUTH EVERY ACTIVE MORNING BEFORE A MEAL TAKE 30 MINUTES PRIOR TO FOOD. Indication: FOR GASTROESOPHAGEAL REFLUX DISEASE 7) PASTE,STOMAHESIVE C#1839-10 APPLY SPARINGLY STOMA USE ACTIVE DIRECTED 8) POUCH,DRAINABLE,NEW IMAGE H#11023 USE POUCH STOMA TWO TIMES ACTIVE PER WEEK Indication: FOR OSTOMY CARE 9) POWDER,STOMAHESIVE C#0255-10 TAKE/APPLY SMALL AMOUNT TO ACTIVE AFFECTED AREA(S) TWICE WEEKLY 10) SERTRALINE HCL 100MG TAB TAKE ONE TABLET BY MOUTH EVERY ACTIVE MORNING Indication: FOR DEPRESSION 11) SKIN BARRIER FILM 28ML 3M#2576 APPLY 1 SPRAY TO AFFECTED ACTIVE AREA(S) ONCE A DAY NEEDED 12) SKIN PREP,NO STING WIPE USE/APPLY 1 PAD TO AFFECTED AREA(S) ACTIVE USE DIRECTED 13) TAPE,PINK 1.5IN X 5YD USE/APPLY TAPE TO [...] TIMES PER WEEK Indication: FOR LOW TESTOSTERONE 16 Total Medications PHYSICAL EXAM General: in NAD HEENT: NC/AT, EOMI Neuro: CN 3-12 grossly intact, no focal deficits CV: RRR Resp: unlabored respirations on room air Abdomen/Pelvis: soft, non-distended, non-tender. Colostomy in place with stool. No skin breakdown appreciated around ostomy barrier. MSK: extremities x4 WWP, non-edematous Psych: appropriate mood and affect LABS: CHEM 7: SODIUM 140 mEq/L 01/07/2024 20:00 POTASSIUM 3.5 mEq/L 01/07/2024 20:00 CHLORIDE 104 mEq/L 01/07/2024 20:00 UREA NITROGEN 10.1 mg/dL 01/07/2024 20:00 CREATININE 0.89 mg/dL 01/07/2024 20:00 CALCIUM 9.3 mg/dL 01/07/2024 20:00 CARBON DIOXIDE 26 mEq/L 01/07/2024 20:00 GLUCOSE 120 H mg/dL 01/07/2024 20:00 EGFR (CKD-EPI 2020) 111.1 01/07/2024 20:00 WBC: 7.7 10*3/uL (01/07/24 20:00) HGB: HGB 13.7 g/dL 01/07/2024 20:00 HCT: 40.5 % (01/07/24 20:00) PLATELETS: PLT 272 10*3/uL 01/07/2024 20:00 IMAGING: Impression for CT ABDOMEN AND PELVIS W/CONTRAST, 10/27/23, case 1992 Decreased size of perirectal abscess status post drain placement. Date Procedure CPT Status Case # 05/23/2024 CT PELVIS W/CONT [id number] Verified 1639 Uncomplicated left ventral sigmoid colostomy. Surgical implant in the left perianal/perirectal space again noted. Decreased inflammation in this area without discrete fluid collection identified. 12/12/2023 CT PELVIS W/CONT [id number] Verified 15 1. Drainage catheter again seen within the left perirectal area, with adjacent soft tissue stranding. Air also seen within this region, increased compared to prior CT. 2. Along the posterior aspect of the rectum, there is a new small 0.5 x 0.8 x 0.6 cm peripherally enhancing air and fluid collection, worrisome for small abscess. READING PHYSICIAN: Frankie Thakkar MD -[id number] 12/12/2023 5:59 CDT [facility] [phone] (For Medical Practitioner Use Only) Attention Patients / Veterans: If you have questions or concerns about these test results, please contact your ordering provider or primary care team. EGD 07/2024 Impression: - Esophageal mucosal changes suggestive of eosinophilic esophagitis. - Normal stomach. - Normal examined duodenum. - Biopsies were taken with a cold forceps for evaluation of eosinophilic esophagitis. Recommendation: - Patient has a contact number available for emergencies. The signs and symptoms of potential delayed complications were discussed with the patient. Return to normal activities tomorrow. Written discharge instructions were provided to the patient. - Resume previous diet. - The patient is not currently taking anticoagulant or antiplatelet agents. - Await pathology results. Colonoscopy 07/2024 Impression: - Mild inflammation was found in the ileum, rule out inflammatory bowel disease. Biopsied. - The sigmoid colon, descending colon, transverse colon, ascending colon and cecum are normal. Recommendation: - Patient has a contact number available for emergencies. The signs and symptoms of potential delayed complications were discussed with the patient. Return to normal activities tomorrow. Written discharge instructions were provided to the patient. - Resume previous diet. - The patient is not currently taking anticoagulant or antiplatelet agents. - Await pathology results. - Repeat colonoscopy is recommended. The colonoscopy date will be determined after pathology results from today's exam become available for review. Pathology report 07/2024 MICROSCOPIC EXAM: Comment: Sections from the distal [...] SIGNIFICANT LYMPHOID AGGREGATES AND HYPERPLASIA (SEE COMMENT) DIAGNOSIS: Perianal Abscess ASSESSMENT/PLAN: MARY ESQUIVEL is a 39-year-old MALE with PMHx JESUS on CPAP, migraines, [...] up. Symptoms are unchanged from previous clinic visit on 08/23/24. Biopsy from esophagus consistent with eosinophillic esophagitis however colon biopsy not consistent with IBD per GI evaluation. Unclear if discharge is mucus or ongoing abscess draiange. - Rectal EUA with possible seton removal scheduled for 01/09/25 at 830AM I personally spent 45 minutes charting and talking with the patient. /elvis/ WAI MESA RESIDENT PHYSICIAN Signed: 11/15/2024 15:48 /elvis/ Jovanny Carter III, MD [facility] General Surgery Attending Cosigned: 11/16/2024 09:43 11/16/2024 ADDENDUM STATUS: COMPLETED The patient was seen and examined on: 11/15/24 I have examined the patient with the resident. I have discussed the patient with the resident team and I agree with the above. I have reviewed the patient's prior notes, pertinent labs and imaging reports, and personally reviewed relevant imaging. 39 year-old with complex anorectal history who is healing after diverting colostomy. He has one seton in place and is still having discharge. It is hard to tell whether this is mucus discharge from the anus or continued discharge from a fistula. We will do exam under anesthesia. If he is not draining from the seton, we may remove it versus leaving alone versus fistulotomy if there is not much sphincter involved. We discussed his expectations for ostomy reversal. He definitely wants to consider it in the future. I counseled him that it's hard to know if he will continue to have anorectal problems after reversal since we do not have a great explanation for why he had such severe issues given that it si felt that he does not have inflammatory bowel disease. I strongly lean toward giving him significant diversion time. I spent 59 minutes on some or all of the following: chart review, history, physical examination, treatment planning, education, and counseling of the patients/family/caregiver, placing orders, communicating with other health care providers, and documentation in the electronic health record /elvis/ Jovanny Carter III, MD [facility] General Surgery Attending Signed: 11/16/2024 09:59 WAI MESA [facility]
--- OUTSIDE RECORDS SUMMARY | 2025-01-27 15:28 | XMS_ITS | Encounter Summary ---
Author Name [facility] [place] Address [address] [facility], [place] [address] Care Team Providers Care Drug Abuse Resistance Education Officer Name Role Phone SHARMIN ROSEN Primary [...] PRESCRIPT ION UHEAL TH Dec 25, 2019 [facility] [id number] [phone] RA ANGELA ESQUIVEL PATIENT [facility] MENTAL HEALTH REPUB LIC SERVI KATI Aug 26, 2019 [id number] [phone] RA ANGELA ESQUIVEL PATIENT [facility] PREFERRED PROVIDER ORGANIZAT ION (PPO) REPUB LIC [employer] Aug 26, 2019 [id number] [phone] RA ANGELA ESQUIVEL PATIENT Selected Encounter This section includes the information on record at [place] for the Encounter. Date/Time Encounter Type Encounter Description Reason Pro vider Source Nov 06, 2024 09:58 AM Outpatient Encounter ADMIN PAT ACTIVTIES (MASNONCT) IHE Encounter Template Text not used by [place] Plan of Treatment: Future Appointments (+ 6 months) and Future Tests (+/- 45 days) The Plan of Treatment section includes future care activities for the patient from all [place] [facility] This section includes future appointments and future orders which are active, pending or scheduled. Future Appointments This section includes appointments that were scheduled to occur 6 months from the date of the Encounter, up to a maximum of 20 appointments. The data comes from all [place] treatment facilities. Appointment Date/Time Appointment Type Appointme nt Facility Name Nov 15, 2024 02:00 PM AMBULATORY - SURGERY . [facility] Jan 09, 2025 08:30 AM AMBULATORY - NONE [facility] Feb 05, 2025 02:30 PM AMBULATORY - MEDICINE [facility] Feb 14, 2025 02:00 PM AMBULATORY - SURGERY [facility] Lab Results: +/- 30 days of the encounter This section includes the Chemistry and Hematology Lab Results on record with [place] for the patient. Radiology Reports and Pathology Reports are provided separately, in subsequent sections. Lab Results This section contains the Chemistry/Hematology Results that were resulted 30 days before or 30 daysafter the date of the Encounter. Date/Time Source Result Type Result - Unit Interpretation Reference Range Specimen Type Comment Nov 15, 2024 03:47 PM [facility] COMPREHENSIVE METABOLIC PANEL PLASMA Specimen Type: PLASMA Comment: No hemolysis noted. Ordering Provider: WAI MESA Report Released Date/Time: Nov 15, 2024 03:44 PM Reporting Lab: [place] [id number] [facility] [id number] Performing Lab: [place] [id number] [facility] [address] CREATININE 1.06 mg/dL 0.7-1.3 UREA NITROGEN 11.0 [...] 90.4 >60 Nov 15, 2024 03:47 PM [facility] CBC BLOOD Specimen Type: BLOOD No comment entered. Ordering Provider: WAI MESA Report Released Date/Time: Nov 15, 2024 03:44 PM Reporting Lab: [facility] [address] [facility] [address] [id number] Performing Lab: [facility] [address] [id number] WBC 8.0 10*3/uL 3.6-11.2 RBC 4.99 10*6/uL [...] and tobacco- related health factors from the [place] facility where the Encounter took place. Current Smoking Status This section includes the most current smoking, or tobacco-related health factor, from the [place] facility where the Encounter took place. Date/Time Current Smoking Status Comment Facil ity Jul 22, 2023 10:43 AM VA-TOBACCO FORMER USER [facility] Tobacco Use History This section includes a history of the smoking, or tobacco-related health factors, that were collected on or before the date of the Encounter. The data comes from the [place] facility where the Encounter took place. Date/Time [...] Sep 10, 2020 02:44 PM VA-TOBACCO USE CIVIL CAD TECH NO [facility] Sep 10, [...] the Encounter. The data comes from all [place] treatment facilities. Date/Time Radiology Report Provider Source Oct 16, 2024 03:[address] CERVICAL SPINE W/O CONT: PETERKIKOMARY DIDIER [id number] -1985 M Exm Date: OCT 16, 2024@15:15 Req Phys: SHARMIN ROSEN Loc: [facility]-ST CLR PACT PHONE 7 PCP (Re Img Loc: [facility]-CT IMAGING [facility] Service: Unknown [facility], [address] [place] [address] (Case [id number] COMPLETE) CT CERVICAL SPINE W/O CONT (CT Detailed) CPT:01512 Reason for Study: cervical radiculopathy Clinical History: [...] 16, 2024 Date Verified: OCT 16, 2024 Coordinator Of Genetic Services E-Sig:/ES/Reema Cruz MD. FACR. Report: History: cervical [...] Interpreting Staff: Reema Cruz MD. FACR, Neuroradiologist (Coordinator Of Genetic Services) /REEMA PETERSEN [facility] Oct 09, 2024 10:17 AM SPINE CERVICAL 2 OR 3 VIEWS: MARY ESQUIVEL [id number] -1985 M Exm Date: OCT 09, 2024@10:17 Req Phys: SHARMIN ROSEN Belinda Loc: -[facility] VVC PACT 7 PCP (Req' Img Loc: -MAIN RADIOLOGY SUITE Service: [facility], [address] [place] [address] (Case [id number] COMPLETE) SPINE CERVICAL 2 OR 3 VIEWS (RAD Detailed) CPT:69544 Reason for Study: bilateral hand numbness, cervical polyradiculopathy on EMG Clinical History: Report Status: Verified Date Reported: OCT 09, 2024 Date Verified: OCT 09, 2024 Coordinator Of Genetic Services E-Sig:/ES/DYLON COREA MD Report: Case #[id number]. Cervical [...] DYLON COREA MD, Staff Physician - Radiologist (Coordinator Of Genetic Services) /DYLON ALLISON [facility] Encounter Notes: All associated encounter notes This section contains the clinical notes associated to the Encounter. Date/Time Encounter Note(s) Provider Source Nov 06, 2024 09:58 AM PHARMACY PROGRESS NOTE: LOCAL TITLE: PHARMACY GENERAL STL STANDARD TITLE: PHARMACY PROGRESS NOTE DATE OF NOTE: NOV 06, 2024@09:58 ENTRY DATE: NOV 06, 2024@09:58:15 AUTHOR: KOFI CHRISTIE EXP COSIGNER: URGENCY: STATUS: COMPLETED Walker sent secure message to Pharmacy requesting refill of IBUPROFEN 600MG TAB. Rx has . Please renew as deemed appropriate, thanks. Kofi Christie, PharmD. /elvis/ KOFI CHRISTIE Signed: 11/06/2024 09:59 Receipt Acknowledged By: 11/06/2024 10:27 /elvis/ SHARMIN ROSEN Staff Physician KOFI CHRISTIE [facility]
--- OUTSIDE RECORDS SUMMARY | 2025-01-27 15:28 | XMS_ITS | Encounter Summary ---
Author Name [facility] [place] Organization [place] Address [address] [facility], [place] [address] Care Team Providers Care Shovel Oiler Name Role Phone SHARMIN ROSEN Primary Care [...] PRESCRIPT ION UHEAL TH Dec 25, 2019 [facility] [id number] [phone] RA ANGELA ESQUIVEL PATIENT [facility] MENTAL HEALTH REPUB LIC SERVI KATI Aug 26, 2019 [id number] [phone] RA ANGELA ESQUIVEL PATIENT [facility] PREFERRED PROVIDER ORGANIZAT ION (PPO) REPUB LIC [employer] Aug 26, 2019 [id number] [phone] RA ANGELA ESQUIVEL PATIENT Selected Encounter This section includes the information on record at [place] for the Encounter. Date/Time Encounter Type Encounter Description Reason Provider Source Aug 22, 2024 09:38 AM Outpatient Encounter ADMIN PAT ACTIVTIES (MASNONCT) RIGO BOYD Encounter Template Text not used by [place] Plan of Treatment: Future Appointments (+ 6 months) and Future Tests (+/- 45 days) The Plan of Treatment section includes future care activities for the patient from all [place] [facility]. This section includes future appointments and future orders which are active, pending or scheduled. Future Appointments This section includes appointments that were scheduled to occur 6 months from the date of the Encounter, up to a maximum of 20 appointments. The data comes from all [place] treatment facilities. Appointment Date/Time Appointment Type Appointme nt Facility Name Aug 23, 2024 01:30 PM AMBULATORY - SURGERY [facility] Aug 31, 2024 02:00 PM AMBULATORY - MEDICINE [facility] Sep 26, 2024 03:00 PM AMBULATORY - MEDICINE [facility] Oct 09, 2024 09:00 AM AMBULATORY - MEDICINE [facility] Oct 16, 2024 03:30 PM AMBULATORY - NONE . [facility] Nov 15, 2024 02:00 PM AMBULATORY - SURGERY . [facility] Jan 09, 2025 08:30 AM AMBULATORY - NONE [facility] Feb 05, 2025 02:30 PM AMBULATORY - MEDICINE [facility] Feb 14, 2025 02:00 PM AMBULATORY - SURGERY [facility] Social History: Smoking Status (Most current) and Tobacco Use (All prior to encounter date) This section includes the most current, and the historical, smoking and tobacco- related health factors from the [place] facility where the Encounter took place. Current Smoking Status This section includes the most current smoking, or tobacco-related health factor, from the [place] facility where the Encounter took place. Date/Time Current Smoking Status Comment Facil ity Jul 22, 2023 10:43 AM [place]-TOBACCO QUIT 1 TO < 5 YRS [facility] Tobacco Use History This section includes a history of the smoking, or tobacco-related health factors, that were collected on or before the date of the Encounter. The data comes from the [place] facility where the Encounter took place. Date/Time Smoking Status/Tobacco Use Comment F acility Jul 22, 2023 10:43 AM [place]-TOBACCO QUIT 1 TO < 5 YRS [facility] Jul 22, 2022 01:24 PM VA-TOBACCO FORMER USER [facility] Jul 22, 2022 01:24 PM VA-TOBACCO QUIT 1 TO < 5 YRS [facility] Sep 10, 2020 02:44 PM VA-TOBACCO DOESNT USE [place] 30 MIN WAKEUP [facility] Sep 10, 2020 02:44 PM VA-TOBACCO USE > 1 5 LESS THAN 30 YEARS [facility] Sep 10, 2020 02:44 PM VA-TOBACCO USE ADVICE [facility] Sep 10, 2020 02:44 PM VA-TOBACCO 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 The data comes from all [facility]. Date/Time Pathology Report Provider Source Aug 25, 2024 10:48 AM LR SURGICAL PATHOL STEPHANY REPORT: LOCAL TITLE: LR SURGICAL PATHOLOGY REPORT [...] Performing Laboratory: Surgical Pathology Report Performed By: [facility], [facility] [address] [facility]# [id number] [address] [place] [id number] $FTR - - - - - - [...] - - MARY ESQUIVEL STANDARD FORM 515 ID:[id number] SEX:M :1985 AGE: 38 LOC:[facility]-GI/ENDO LAB ANESTHESIA2 PCP: Sharmin Rosen /lino CODY MD, PhD STAFF PATHOLOGIST Signed: 08/25/2024 10:48 [facility] Encounter Notes: All associated encounter notes This section contains the clinical notes associated to the Encounter. Date/Time Encounter Note(s) Provider Source Aug 22, 2024 09:38 AM ANESTHESIOLOGY BENJAMIN WSHEET: LOCAL TITLE: ANES INTRA-OP FLOWSHEET STL STANDARD TITLE: ANESTHESIOLOGY FLOWSHEET DATE OF NOTE: AUG 22, 2024@09:38 ENTRY DATE: AUG 22, 2024@09:38:01 AUTHOR: RIGO BOYD EXP COSIGNER: URGENCY: STATUS: COMPLETED Patient: MARY ESQUIVEL SSN: [id number] Date of Operation: 08/22/2024 Surgery Start Time: Surgery End Time: Anesthesia Care Start: 08/22/2024 8:45 Anesthesia Care End: 08/22/2024 9:37 Anesthesia Method: - Monitored 08/22/2024 8:47 (Primary), Level Of Consciousness: Sedated, Monitors Applied, Oxygen Therapy: Mask, EtCO2 Verified: Waveform Positioning: Head Neutral, Head And Neck In Alignment With Spine, Pressure Points Padded & Checked, Eyes, Ears And Nose Free Of Pressure ASA Number: 3 Procedure: EGD/COLONOSCOPY Diagnosis: DYSPHAGIA/RECURRENT RECTAL ABCESS Holding, Anesthesia, PACU Drugs: --------- Lidocaine: 100 mg Propofol: 100 mg Propofol gtt: 546.388 mg DexmedeTOMidine: 8 mcg Holding, Anesthesia, PACU Fluids: Normal Saline: 200 ml Resources: Headrest - Pillow Staff: --------- RIGO BOYD PRIN. ANES. GIBBONS, ERIN, ANES. SUPER. Procedure Date: 08/22/2024 Procedure Start Time: 08/22/2024 8:53 Procedure End Time: 08/22/2024 9:33 /elvis/ RIGO BOYD CERTIFIED REGISTERED NURSE CARD GRINDER HELPER Signed: 08/22/2024 09:38 RIGO BOYD [facility]
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
[2025-01-27] MEDS: HYDROcodone/acetaminophen (*CRX) 5-325 MG TABLET 1 TAB PO (15:54)
[2025-01-27] MEDS: TETANUS,DIPHTHERIA,AC PERTUSSIS ADULT (0.5 ML) BOOSTRIX IM (15:55)
--- NOTE | 2025-02-13 15:11 | PC.NURSE ---
LATE ENTRY This note is being entered to document information to the patient's record. The following information was omitted on [01/27/25], by [Mery Gipson RN]. Left wrist/hand thumb spica splint applied.
== END 2025-01-27 17:33 | disposition home or self-care (01) ==
PROVIDERS: Emergency Provider Physician Assistant
DX: S69.92XA Unspecified injury of left wrist, hand and finger(s), initial encounter (principal); S46.912A Strain of unspecified muscle, fascia and tendon at shoulder and upper arm level, left arm, initial encounter; Z23 Encounter for immunization; F17.200 Nicotine dependence, unspecified, uncomplicated; V86.59XA Driver of other special all-terrain or other off-road motor vehicle injured in nontraffic accident, initial encounter
CPT/HCPCS: 29125; 73030; 73110; 73130; 90471; 90715; 99284; A4565; A9270